=== PATIENT | male | born 1955 | race Caucasian/White ===

== ENCOUNTER 2024-06-29 04:45 | Outpatient (CLI) | payer MEDICARE, SELFPAY | END 2024-06-29 04:46 | disposition home or self-care (01) | LOC: AMB 07-01 01:46 | PROVIDERS: PCP Internal Medicine; Visit Provider Student in an Organized Health Care Education/Training Program | DX: R10.9 Unspecified abdominal pain (principal); R11.10 Vomiting, unspecified | CPT/HCPCS: A0425; A0427 ==

== ENCOUNTER 2025-01-20 11:07 | Outpatient (CLI) | payer MEDICARE, SELFPAY | END 2025-01-20 11:08 | disposition home or self-care (01) | LOC: AMB 01-21 11:38 | PROVIDERS: PCP Internal Medicine; Visit Provider Emergency Medicine | DX: R53.1 Weakness (principal); R52 Pain, unspecified | CPT/HCPCS: A0425; A0427 ==

== ENCOUNTER 2025-01-20 11:50 | Emergency (ER) | payer MEDICARE, SELFPAY ==
[2025-01-20] VITALS (26 sets, daily range): BP systolic 140–167; BP diastolic 79–85; PULSE 63–94; RESP 0–29; TEMP 37.1; O2SAT 94–98; BMI 19.8
--- NOTE | 2025-01-20 11:56 | ED_ITS ---
HPI - General Adult General Time Seen by Provider: 11:56 Date Seen: 01/20/25 Chief complaint: Weakness Stated complaint: Weakness/Cough Time Seen by Provider: 01/20/25 11:53 Source: patient, EMS and RN notes reviewed Mode of arrival: EMS History of Present Illness HPI narrative: This 70-year-old male is coming in the ambulance from home due to ongoing cough and weakness. Started to become ill on Sunday. He has been coughing, headache, sore throat, nasal congestion. He has had decreased appetite, not eating or drinking. No abdominal pain, no vomiting or diarrhea. He has not noted any fevers. He is weak, feels dizzy. He lives independently at home. He has baseline significant orthopedic issues including cervical and lumbar neck issues, has had lumbar fusion, has bilateral carpal tunnel, has arthritis issues, has torn cartilage in both knees. He notes that he generally has aches and pains with all of his orthopedic issues and that certainly is still present. EMS was called, the picked him up at home. They attempted to IV starts but could not get 1, blood glucose was tested though and was 146. Patient tells me he had pancreatic cancer, had a Whipple in 2003 and has been cancer free since then. Related Data Home Medications ?Medication ?Instructions ?Recorded ?Confirmed oxycodone 5 mg tablet mg 01/20/25 pantoprazole 40 mg tablet,delayed mg PO DAILY 01/20/25 release tizanidine 4 mg tablet mg 3XD 01/20/25 Allergies Allergy/AdvReac Type Severity Reaction Status Date / Time scopolamine Allergy Unknown Verified 01/20/25 12:01 Review of Systems Status of ROS: Reports: 6 or more systems reviewed and unremarkable except as noted in History and below [facility] Medical History (Updated 01/20/25 @ 14:46 by Мария Chan MD) Pancreatic cancer ?C25.9 - Malignant neoplasm of pancreas, unspecified (ICD-10) Surgical History (Updated 01/20/25 @ 12:08 by Мария Chan MD) H/O Whipple procedure ?Z90.410 - Acquired total absence of pancreas (ICD-10) ?Z90.49 - Acquired absence of other specified parts of digestive tract (ICD-1 0) Social History Smoking Status: Current every day smoker What tobacco products do you use: cigarettes Do you use any of these nicotine containing products: None How often do you have a drink containing alcohol: monthly or less AUDIT-C Alcohol total score: 1 Non-prescribed substance use: denies use Exam Const: Vital Signs, click to edit/add: Vital Signs - 24 hr 01/20/25 11:54 01/20/25 12:03 01/20/25 12:07 Temperature 98.8 F Pulse Rate 75 Pulse Rate [Pulse Oximeter] 91 Respiratory Rate 20 8 L Blood Pressure Blood Pressure [Ri ght Upper Arm] 140/81 H Pulse Oximetry 96 97 98 Oxygen Delivery Me thod Room Air 01/20/25 12:15 01/20/25 12:30 01/20/25 12:45 Temperature Pulse Rate 67 70 70 Pulse Rate [Pulse Oximeter] Respiratory Rate 7 L 9 L 14 Blood Pressure Blood Pressure [Ri ght Upper Arm] Pulse Oximetry 96 98 96 Oxygen Delivery Me thod 01/20/25 13:00 01/20/25 13:01 01/20/25 13:15 Temperature Pulse Rate 74 77 82 Pulse Rate [Pulse Oximeter] Respiratory Rate 13 11 L 29 H Blood Pressure 155/85 H Blood Pressure [Ri ght Upper Arm] Pulse Oximetry 98 98 96 Oxygen Delivery Me thod 01/20/25 13:30 01/20/25 13:45 01/20/25 14:00 Temperature Pulse Rate 63 94 72 Pulse Rate [Pulse Oximeter] Respiratory Rate 12 18 8 L Blood Pressure Blood Pressure [Ri ght Upper Arm] Pulse Oximetry 96 96 96 Oxygen Delivery Me thod 01/20/25 14:15 01/20/25 14:30 01/20/25 14:38 Temperature Pulse Rate 71 87 75 Pulse Rate [Pulse Oximeter] Respiratory Rate 14 7 L 9 L Blood Pressure 164/79 H Blood Pressure [Ri ght Upper Arm] Pulse Oximetry 96 97 95 Oxygen Delivery Me thod 01/20/25 14:45 01/20/25 15:00 01/20/25 15:15 Temperature Pulse Rate 70 65 69 Pulse Rate [Pulse Oximeter] Respiratory Rate 7 L 8 L 14 Blood Pressure Blood Pressure [Ri ght Upper Arm] Pulse Oximetry 95 97 96 Oxygen Delivery Me thod 70-year-old male is alert, interactive, no apparent distress, sitting up in the bed in room 5. He has some audible nasal congestion but is able to speak in complete sentences. He is not coughing when I am with him. Pupils equal round reactive, sclerae clear, extraocular muscles intact. Symmetric facial function. Neck supple, no thyromegaly or masses, no cervical adenopathy noted. He is able to sit up, he is notably thin, some initial upper airway transmission but clears and underlying lung sounds are clear to auscultation bilaterally, no wheezing, no crackles, no tachypnea, no accessory muscle use. CV regular rate and rhythm, no murmur, normal S1-S2. Abdomen is soft, nontender, nondistended, no organomegaly. He has no lower extremity edema. Very pleasant and conversive gentleman. Documenting provider has reviewed patient's vital signs: yes Course Course ED Course: Patient undoubtedly has a upper respiratory infection, could include lower airways disease with this. Amongst the differential is viral, triple viral swab will be done. He could have other respiratory viral pathogens outside of this that we do not test for. Pneumonia is a possibility as well. Unlikely that this is cardiac but will consider this. Will have him on cardiac monitoring, pulse oximetry, established an IV and get a baseline EKG. He will have full complement of labs. Will start with portable chest x-ray and consider advanced imaging if indicated. He is not hypoxic, afebrile and not tachycardic at this time. Reevaluation(s) Time of Reevaluation #1: 14:40 Reevaluation #1: Have reviewed with patient that he has RSV, chest x-ray is normal, no evidence of pneumonia. He is not hypoxic. He states he is just feeling really dry, would like more IV fluids. Have given a 500 mL bolus, will give him another L of normal saline. He is also complaining of headache. If will give him 1 solitary dose of 15 mg IV Toradol as well as some oral acetaminophen. Have reviewed with him that it will likely continue to be part of this illness, may experience headache on and off. May need to use [id number] medicines. We discussed signs and symptoms for return. Did ask him if he was feeling too weak to go home, reviewed that there is no antibiotic, no curative agent for this. Reviewed that he is likely to be sick for up to 2 weeks. He did report that th ere is a new baby at home, reviewed that this is absolutely contagious to that baby and he needs to avoid the baby. He declines hospitalization. Did review with him that it would be observation. He ultimately did decline hospitalization, feels he can return to home with subsequent IV fluids. He is to let us know if he feels differently, offer for observation remains. He also did have some nausea while here earlier, was given 4 mg IV Zofran, states he does have this at home and declines a prescription from me. Vital Signs Vital signs: Initial Vital Signs Temperature 98.8 F 01/20/25 11:54 Temperature Source Temporal Artery Scan 01/20/25 11:54 Pulse Rate 91 01/20/25 11:54 Respiratory Rate 20 01/20/25 11:54 Blood Pressure 140/81 H 01/20/25 11:54 Blood Pressure Mean 100 01/20/25 11:54 Blood Pressure Position Supine 01/20/25 11:54 Pulse Oximetry 96 01/20/25 11:54 Oxygen Delivery Method Room Air 01/20/25 11:54 Vital Signs Temperature 98.8 F 01/20/25 11:54 Pulse Rate 91 01/20/25 11:54 Respiratory Rate 20 01/20/25 11:54 Blood Pressure 140/81 H 01/20/25 11:54 Pulse Oximetry 96 01/20/25 11:54 Oxygen Delivery Method Room Air 01/20/25 11:54 Temperature 98.8 F 01/20/25 11:54 Pulse Rate 69 01/20/25 15:15 Respiratory Rate 14 01/20/25 15:15 Blood Pressure 164/79 H 01/20/25 14:38 Pulse Oximetry 96 01/20/25 15:15 Oxygen Delivery Method Room Air 01/20/25 11:54 Medications Administered Medications: Generic Name Dose Route Start Last Admin Trade Name Freq PRN Reason Stop Dose Admin Sodium Chloride 1,000 mls @ 1,000 mls/hr 01/20/25 14:42 01/20/25 14:50 0.9 % Sodium Chloride 1000 Ml IV 01/20/25 15:41 1,000 mls/hr .Q1H YOSEF Administration Discontinued Medications Generic Name Dose Route Start Last Admin Trade Name Freq PRN Reason Stop Dose Admin Acetaminophen 1,000 mg 01/20/25 14:42 01/20/25 14:49 Acetaminophen 500 Mg Tablet PO 01/20/25 14:43 1,000 mg ONCE ONE Administration Sodium Chloride 500 mls @ 500 mls/hr 01/20/25 12:49 01/20/25 14:00 0.9 % Sodium Chloride 500 Ml IV 01/20/25 13:48 Infused .Q1H ONE Infusion Ketorolac Tromethamine 15 mg 01/20/25 14:42 01/20/25 14:49 Ketorolac 15 Mg/Ml Inj IVP 01/20/25 14:43 15 mg ONCE ONE Administration Medical Decision Making Lab Data Lab results reviewed: Yes I reviewed the patient's lab results Labs: Lab Results 01/20/25 01/20/25 Range/Units 12:04 12:10 WBC 8.17 (4.50-11.00) K/uL RBC 4.76 (4.30-5.90) m/uL Hgb 13.6 (13.5-17.5) gm/dL Hct 42.0 (37.0-53.0) % MCV 88 (80-100) fL MCH 29 (26-34) pg MCHC 32 (32-36) gm/dL RDW Coeff of [place] 12.5 (11.5-15.5) % Plt Count 131 L (140-440) K/uL Neut % (Auto) 61.6 (42.0-72.0) % Lymph % (Auto) 25.5 (20-44) % [place] % (Auto) 11.8 H (0.0-11.0) % Eos % (Auto) 0.6 (0.0-7.0) % Baso % (Auto) 0.4 (0.0-3.0) % Neut # (Auto) 5.04 (1.7-7.0) K/uL Lymph # (Auto) 2.08 (0.90-2.90) K/uL [place] # (Auto) 1.00 H (0.00-0.90) K/UL Eos # (Auto) 0.05 (0.00-0.50) K/uL Baso # (Auto) 0.03 (0.00-0.30) K/uL Abs Immat Gran (auto) 0.01 (0.00-0.30) K/uL Imm/Tot Granulo (auto) 0.1 % VBG pH 7.435 H (7.32-7.43) VBG pCO2 39 L (40-50) mmHG VBG pO2 40.0 (25-47) mmHG VBG HCO3 26 (21-28) mmol/L Sodium 136 (135-149) mmol/L Potassium 4.2 (3.6-5.1) mmol/L Chloride 104 (96-114) mmol/L Carbon Dioxide 24 (20-32) mmol/L Anion Gap 8 (7-15) mEq/L BUN 5 L (7-30) mg/dL Creatinine 0.9 (0.5-1.5) mg/dL Estimated Creat Clear 62.54 Estimated GFR 91 ml/min Glucose 111 (60-115) mg/dL Lactate 1.2 (0.5-1.9) mmol/L Calcium 8.9 (8.4-10.6) mg/dL Total Bilirubin 0.8 (0.1-1.5) mg/dL AST 31 (12-35) U/L ALT 28 (4-50) U/L Alkaline Phosphatase 139 (40-150) U/L Troponin I < 0.01 L (0.01-0.04) ng/mL C-Reactive Protein 2.0 H (0.5-1.0) mg/dL NT-Pro-B Natriuret Pep 166 pg/mL Total Protein 6.3 (6.0-8.3) g/dL Albumin 4.2 (3.3-5.0) g/dL SARS-CoV-2 (PCR) Negative SARS-CoV-2 (Negative) Influenza Type A (PCR) Negative PCR FLU A (Negative) Influenza Type B (PCR) Negative PCR FLU B (Negative) RSV (PCR) POSITIVE PCR RSV A (Negative) Imaging Data Chest x-ray: Attestation: I have reviewed the pertinent imaging results. Radiologist's impression: Patient: RAMIRO MOJICA Facility:?[facility] Patient ID:?[id number] Site Patient ID:?[id number]. Site :?[id number] Study:?XRay-Chest PORTABLE-01/20/2025 12:31:24 PM Ordering Physician:?Dustin Hsieh Final Report: Indication: Cough and weakness Technique: Chest 1 view Comparison: None Findings/Impression: Cardiovascular and mediastinum: Normal heart size with atherosclerotic calcification. Lungs and pleural space: Lungs are clear. No sign of infiltrate or mass. No sign of pleural effusion. No pneumothorax. Bones and soft tissues: Status post lower cervical spine surgery. Dictated by Jerry Cailxto MD @ 01/20/2025 1:08:04 PM (Electronic Signature) ECG Data Attestation: I personally reviewed and interpreted this ECG as follows: (Sinus rhythm with PACs, 72 beats per minute. No ischemic change or infarct noted.) Prior ECG tracings: not available for review Discharge Plan Discharge Clinical Impression: RSV infection Patient Disposition: Home, Self-Care Condition: Stable Instructions: RSV (Respiratory Syncytial Virus) Infection (ED) Additional Instructions: Can use [id number] cough and cold medicines as needed for symptom control. There is no antiviral treatment for adults for RSV. You are likely to be sick for up to 2 weeks. If you feel you are worsening, have increasing respiratory symptoms, difficulty breathing, shortness of breath, develops fever worsening cough, do recommend re-evaluation. Recommend that you definitely stay away from the new in your family. This is certainly contagious. Drink plenty of fluids, appetite should improve as you feel better. You should quarantine from the baby as well as others until you are starting to improve from this illness and feeling better. Activity Level: Activity as Tolerated Prescriptions: No Action tizanidine 4 mg tablet 3XD pantoprazole 40 mg tablet,delayed release (DR/EC) PO DAILY oxycodone 5 mg tablet Follow Up/Referrals: Jovany Salguero MD [Primary Care Provider] - Stand Alone Forms: [employer] Info Instructions
[2025-01-20 12:20] LABS: HCO3 VBG 26 mmol/L (21-28); Lactate* 1.2 mmol/L (0.5-1.9); PCO2 VBG 39 mmHG (40-50); pH VBG 7.435 (7.32-7.43)
[2025-01-20 12:24] LABS: Basophils Absolute Auto 0.03 K/uL (0.00-0.30); Basophils Percent Auto 0.4 % (0.0-3.0); Eosinophils Absolute Auto 0.05 K/uL (0.00-0.50); Eosinophils Percent Auto 0.6 % (0.0-7.0); Hemoglobin* 13.6 gm/dL (13.5-17.5); Immature Granulocytes Abs Auto 0.01 K/uL (0.00-0.30); Immature Granulocytes Pct Auto 0.1 %; Lymphocytes Absolute Auto 2.08 K/uL (0.90-2.90); Lymphocytes Percent Auto 25.5 % (20-44); Mean Corpuscular HGB Conc 32 gm/dL (32-36); Mean Corpuscular Hemoglobin 29 pg (26-34); Mean Corpuscular Volume 88 fL (80-100); Monocytes Percent Auto 11.8 % (0.0-11.0); Neutrophils Absolute Auto 5.04 K/uL (1.7-7.0); Neutrophils Percent Auto 61.6 % (42.0-72.0); Platelet Count* 131 K/uL (140-440); RDW Coefficient of Variation % 12.5 % (11.5-15.5); Red Blood Count 4.76 m/uL (4.30-5.90); White Blood Count* 8.17 K/uL (4.50-11.00)
[2025-01-20 12:28] LABS: Slide Review Reflex No
[2025-01-20 12:41] LABS: Albumin* 4.2 g/dL (3.3-5.0); Chloride* 104 mmol/L (96-114)
[2025-01-20 12:42] LABS: Potassium* 4.2 mmol/L (3.6-5.1); Sodium* 136 mmol/L (135-149)
[2025-01-20 12:44] LABS: Bilirubin Total* 0.8 mg/dL (0.1-1.5); Blood Urea Nitrogen* 5 mg/dL (7-30); Creatinine* 0.9 mg/dL (0.5-1.5); Est. Creatinine Clearance* 62.54; Estimated Glomerular Filt Rate 91 ml/min
[2025-01-20 12:45] LABS: Alanine Aminotransferase* 28 U/L (4-50); Alkaline Phosphatase* 139 U/L (40-150); Anion Gap 8 mEq/L (7-15); Aspartate Amino Transferase* 31 U/L (12-35); Calcium* 8.9 mg/dL (8.4-10.6); Carbon Dioxide* 24 mmol/L (20-32); Glucose* 111 mg/dL (60-115); Total Protein* 6.3 g/dL (6.0-8.3)
[2025-01-20 12:58] LABS: PCR FLU A Negative PCR FLU A (Negative); PCR FLU B Negative PCR FLU B (Negative); PCR RSV POSITIVE PCR RSV (Negative); SARS PCR* Negative SARS-CoV-2 (Negative)
[2025-01-20] MEDS: 0.9 % SODIUM CHLORIDE 500 ML 500 ML IV (13:00)
[2025-01-20 13:06] LABS: NT Pro B Type NatriureticPept* 166 pg/mL; Troponin I* < 0.01 ng/mL (0.01-0.04)
[2025-01-20] MEDS: ONDANSETRON 2 MG/ML inj 4 MG IVP (14:05)
[2025-01-20] MEDS: ACETAMINOPHEN 500 MG TABLET 1000 MG PO (14:49)
[2025-01-20] MEDS: KETOROLAC 15 MG/ML inj IVP (14:49)
[2025-01-20] MEDS: 0.9 % SODIUM CHLORIDE 1000 ml 1,000 ML IV (14:50)
--- NOTE | 2025-01-20 18:03 | ED.NURSE ---
Pt daughter in-law concerned with the pt coming home d/t being RSV+, and having an at home. MD [place] aware of this, had talked with the pt. Pt son coming to pick the pt up.
== END 2025-01-20 18:19 | disposition home or self-care (01) ==
PROVIDERS: Emergency Provider Family Medicine; PCP Internal Medicine
DX: R05.9 Cough, unspecified (principal); B97.4 Respiratory syncytial virus as the cause of diseases classified elsewhere
CPT/HCPCS: 36415; 71045; 80053; 82803; 83605; 83880; 84484; 85025; 86140; 87631; 93005; 96374; 96375; 99284; 99285; A9270; J1885; J2405; J7030

== ENCOUNTER 2025-01-23 18:03 | Emergency (ER) | payer MEDICARE, SELFPAY ==
[2025-01-23 18:40] VITALS: BP 161/89; PULSE 74; RESP 20; TEMP 38.2; O2SAT 95; BMI 19.8
--- OUTSIDE RECORDS SUMMARY | 2025-01-23 19:36 | XMS_ITS | Encounter Summary ---
Author Organization [facility] Address [address] [facility] [place] [address] Care Team Providers Care Supervisor Fine Grading Name Role Phone Jovany Salguero MD Primary Care Provider [phone] Jovany Salguero MD Unavailable [phone] Janki Ortiz PA-C Unavailable [phone] Gera Rowley PA-C Unavailable Bonifacio Bender MD Unavailable [phone] Didi Villarreal MD Unavailable Gera Rowley PA-C Unavailable Jovany Salguero MD Unavailable [phone] Cheko Lyons MD Unavailable Abraham Gutierres MD Unavailable Nereyda Saleem MD Unavailable [phone] Jovany Salguero MD Unavailable Tawanna Davis Unavailable [phone] Gera Rowley PA-C Unavailable Abraham Gutierres MD Unavailable [phone] Yisel Soliman Harmony ADVERTISING PROJECT MANAGER Unavailable [phone] Denise Keys ACADEMIC REGISTRAR Unavailable [phone] Harmony Bowden CHW Unavailable [phone] Ashley Romero THERAPIST PHYSICAL Unavailable [phone] India Starr CHW Unavailable [phone] Lewis Chiu DO Unavailable [phone] Reason for Visit * Reason Onset Date Comments Refill Request 10/03/2022 Encounter Details Date Type Department Care Team (Late st Contact Info) Description 10/03/2022 Refill [facility] [address] [place] [phone] Jovany Salguero MD [address] [place] [address] Refill Request Social History Tobacco Use Types Packs/Day Years Used Date Smoking Tobacco: Every Day Cigarettes 1 39 Smokeless Tobacco: Never Comments:1 ppd smoker Alcohol Use Standard Drinks/Week Comments Yes 4 (1 standard drink = 0.6 oz pur e alcohol) Occas PHQ-2 Answer Date Recorded PHQ-2 Score 0 09/25/2022 Sex and Gender Information Value Date Recorded Sex Assigned at Not on file Legal Sex Male 3:07 AM MECHANICAL SHOVEL OPERATOR Gender Identity Not on file Sexual Orientation Not on file COVID-19 Exposure Response Date Recorded In the last 10 days, have yo u been in contact with someone who was confirmed or suspected to have Coronavirus/COVID-19? No / Unsure 10/06/2022 3:08 PM MECHANICAL SHOVEL OPERATOR documented as of this encounter Plan of Treatment Not on file documented as of this encounter Visit Diagnoses Not on filedocumented in this encounter Additional Health Concerns Assessment Noted Time PHQ-9 Depression Total Score: 4 09/25/20 22 11:15 AM CDT documented as of this encounter Care Teams Supervisor Fine Grading Relationship Specialty Start Date End Date Jovany Salguero MD [address] [place] [address] PCP - General Internal Medicine 10/02/18 Jovany Salguero MD [address] [place] [address] Assigned PCP 09/05/20 Janki Ortiz PA-C [address] [place] [address] [facility] [address] [place] [address] Physician Gaming Director Dermatology 09/29/21 Gera Rowley PA-C [address] [facility] [address] [place] [address] Assigned Musculoskeletal Provider 07/29/22 10/13/22 [place] [id number] [address] Assigned Musculoskeletal Provider 10/14/22 11/10/22 Didi Villarreal MD ORTHOPAEDIC SURGERY [address] [place] [address] Assigned Musculoskeletal Provider 11/11/22 02/16/23 Gera Rowley PA-C [address] [facility] [address] [place] [address] Assigned Musculoskeletal Provider 02/17/23 05/04/23 Jovany Salguero MD [address] [place] [address] Assigned Pain Medication Provider 02/24/23 06/22/23 [place] [address] [place] [address] Assigned Musculoskeletal Provider 05/05/23 11/16/24 Abraham Gutierres MD [address] [address] Assigned Neuroscience Provider 05/05/23 12/19/23 [place] [address] [place] [address] Assigned Pain Medication Provider 06/23/23 07/13/23 Jovany Salguero MD [address] [facility] [place] [address] Assigned Pain Medication Provider 07/14/23 Tawanna Davis, [facility] Lead Stock Roller Rotary Screen Printing Machine Operator - Clinical 12/17/23 02/29/24 Gera Rowley PA-C [address] [place] [address] Assigned Neuroscience Provider 12/20/23 02/07/24 Abraham Gutierres MD [address] [place] [address] Assigned Neuroscience Provider 02/08/24 11/16/24 [place] [address] [place] [place] [address] Nurse Practitioner Nurse Practitioner 02/14/24 Denise Keys, ACADEMIC REGISTRAR [address] [facility] [place] [address] Lead Stock Roller Primary Care - CC 02/29/24 05/09/24 Harmony Bowden, [facility] Community Health Worker 03/26/24 06/12/24 Ashley Romero, [facility] Lead Stock Roller 05/09/24 India Starr, [facility] Community Health Worker 06/12/24 12/24/24 [place] [address] [address], [address] [address] Assigned Musculoskeletal Provider 11/17/24 documented as of this encounter
--- OUTSIDE RECORDS SUMMARY | 2025-01-23 19:36 | XMS_ITS | Encounter Summary ---
Author Organization [place] Address [address] [facility] [place] [address] Care Team Providers Care Home Hospice Rn Name Role Phone Jovany Salguero MD Primary Care Provider [phone] Jovany Salguero MD Unavailable [phone] Janki OrtizC Unavailable [phone] Cheko Lyons MD Unavailable Jovany Salguero MD Unavailable [phone] Tawanna Davis CAE ENGINEER Unavailable [phone] Gera RowleyC Unavailable [phone] Abraham Gutierres MD Unavailable [phone] Yisel Soliman AIRPORT SCREENER Unavailable [phone] Denise Keys ACTUARIAL DIRECTOR Unavailable [phone] Harmony Bowden CHW Unavailable [phone] Ashley Romero CAE ENGINEER Unavailable [phone] India Starr CHW Unavailable Lewis Chiu DO Unavailable [phone] Reason for Visit * Reason Onset Date Comments Symptoms 12/20/2023 Encounter Details Date Type Department Care Team (Late st Contact Info) Description 12/20/2023 Telephone [facility] - [address] 4[address] [place] [address] None Symptoms Social History Tobacco Use Types Packs/Day Years Used Date Smoking Tobacco: Some Days Cigarettes 1 39 Smokeless Tobacco: Never Comments:1 ppd smoker Alcohol Use Standard Drinks/Week Comments Yes 4 (1 standard drink = 0.6 oz pur e alcohol) Occas PHQ-2 Answer Date Recorded PHQ-2 Score 6 12/05/2023 Adolescent Education Answer Date Record ed Getting School Help Needed Not on file 08/25 Food Insecurity Answer Date Recorded Within the past 12 months, d id you worry that your food would run out before you got money to buy more? No 12/18/2023 Within the past 12 months, d id the food you bought just not last and you didn t have money to get more? No 12/18/2023 Housing Stability Answer Date Recorded Do you have housing? (Housin g is defined as stable permanent housing and does not include staying ouside in a car, in a tent, in an abandoned building, in an overnight assisted, or couch-surfing.) Yes 12/18/2023 Are you worried about losing your housing? No 12/18/2023 Financial Resource Strain Answer Date R ecorded Within the past 12 months, h ave you or your family members you live with been unable to get utilities (heat, electricity) when it was really needed? No 12/18/2023 Transportation Needs Answer Date Record ed Within the past 12 months, h as lack of transportation kept you from medical appointments, getting your medicines, non-medical meetings or appointments, work, or from getting things that you need? No 12/18/2023 Interpersonal Safety Answer Date Record ed Do you feel physically and e motionally safe where you currently live? Yes 11/13/2023 Within the past 12 months, h ave you been hit, slapped, kicked or otherwise physically hurt by someone? No 11/13/2023 Within the past 12 months, h ave you been humiliated or emotionally abused in other ways by your partner or ex-partner? No 11/13/2023 Sex and Gender Information Value Date Recorded Sex Assigned at Not on file Legal Sex Male 3:07 AM TRAUMA PROGRAM MANAGER Gender Identity Not on file Sexual Orientation Not on file documented as of this encounter Miscellaneous Notes * Telephone Encounter - Elroy Franz - 12/20/2023 12:24 PM CST Caller reporting the following red-flag symptom(s): Left eye pain Per the system red-flag symptom policy, patient was instructed to: speak with a Registered Nurse Action: Patient warm transferred to a Registered Nurse MA PROGRAM MANAGER documented in this encounter Plan of Treatment Not on file documented as of this encounter Goals Goal Patient Goal Type Associated Problems Recent Progress Patient-Stated? Author Create an action plan to increase financial stability Care Plan Patient expresses financial resource strain 60%( 12:56 PM TRAUMA PROGRAM MANAGER) No Tawanna Davis, [facility] Note: Barriers: fixed/limited income Strengths: family support Patient expressed understanding of goal: yes Action steps to achieve this goal: I will utilize [employer] (Completed) I will work with Financial Resource Worker regarding my outstanding medical bills and get assistance from [facility]. (Completed) I will work with financial resource worker on certain pops [place] application and [place] benefits (Pending) I will work with Financial Resource Worker to reinstate [place] benefits and transfer them to [facility] (01/09: In Progress - pt stated that they transferred and he recently filled out paperwork and sent it back into the [facility] and is waiting on a return call/update) I will continue to outreach to care coordination as needed for additional resources or supports. (Ongoing) documented as of this encounter Visit Diagnoses Not on filedocumented in this encounter Additional Health Concerns Active Problems Noted Date Diagnosed Date Patient expresses financial resource strain 11/27 Assessment Noted Time PHQ-9 Depression Total Score: 20 024 10:02 AM TRAUMA PROGRAM MANAGER documented as of this encounter Care Teams Home Hospice Rn Relationship Specialty Start Date End Date Jovany Salguero MD [address] [place] [address] PCP - General Internal Medicine 10/02/18 Jovany Salguero MD [address] [place] [address] Assigned PCP 09/05/20 Janki Ortiz PA-C [address] [place] [address] [address] [facility] [address] Physician Financial Systems Administrator Dermatology 09/29/21 [place] [address] [facility] [place] [address] Assigned Musculoskeletal Provider 05/05/23 11/16/24 Jovany Salguero MD [address] [place] [address] Assigned Pain Medication Provider 07/14/23 Tawanna Davis, [facility] Lead Flexo Operator Veterinary Technology Instructor - Clinical 12/17/23 02/29/24 Gera Rowley PA-C [address] [facility] [address] [id number] Assigned Neuroscience Provider 12/20/23 02/07/24 Abraham Gutierres MD [address] [place] [address] Assigned Neuroscience Provider 02/08/24 11/16/24 [place] [address] [facility] [place] [place] [address] Nurse Practitioner Nurse Practitioner 02/14/24 Denise Keys, ACTUARIAL DIRECTOR [address] [place] [address] Lead Flexo Operator Primary Care - CC 02/29/24 05/09/24 Harmony Bowden, W Community Health Worker 03/26/24 06/12/24 Ashley Romero, [facility] Lead Flexo Operator 05/09/24 India Starr, [facility] Community Health Worker 06/12/24 12/24/24 [place] [address] [address], [address] [address] Assigned Musculoskeletal Provider 11/17/24 documented as of this encounter
--- OUTSIDE RECORDS SUMMARY | 2025-01-23 19:36 | XMS_ITS | Encounter Summary ---
Author Organization [place] Address [address] [facility] [address] Care Team Providers Care Animal Behaviorist Name Role Phone Jovany Salguero MD Primary Care Provider [phone] Jovany Salguero MD Unavailable Janki Ortiz PA-C Unavailable [phone] Gera Rowley PA-C Unavailable [phone] Jovany Salguero MD Unavailable Cheko Lyons MD Unavailable Abraham Gutierres MD Unavailable [phone] Nereyda Saleem MD Unavailable [phone] Jovany Salguero MD Unavailable Tawanna DavisSW Unavailable Gera Rowley PA-C Unavailable [phone] Abraham Gutierres MD Unavailable [phone] Yisel Soliman SENIOR FOREMAN Unavailable [phone] Denise Keys CO FOUNDER AND CHIEF STRATEGY OFFICER Unavailable [phone] Harmony Bowden CHW Unavailable [phone] Ashley Romero [facility] Unavailable [phone] India Starr CHW Unavailable [phone] Lewis Chiu DO Unavailable [phone] Reason for Visit * Reason Onset Date Comments Results 02/22/2023 Encounter Details Date Type Department Care Team (Late st Contact Info) Description 02/22/2023 Telephone [facility] [place] [address] [facility] [address] [place] [address] Gera Rowley PA-C [address] [address] Results Social History Tobacco Use Types Packs/Day Years [...] on file 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 No / Unsure 02/20/2023 11:06 AM CDT documented as of this encounter Miscellaneous Notes * Telephone Encounter - Radha Pizarro - 02/22/2023 9:21 AM CDT [facility] Call Center Phone Message May a detailed message be left on voicemail: yes Reason for Call: Requesting Results Name/type of test: MRI Date of test: 02/19/23 Was test done at a location other than [facility] (Please fill in the location if not [facility])?: Yes: [place] Action Taken: Other: [facility] Travel Screening: Not Applicable documented in this encounter Plan of Treatment Not on file documented as of this encounter Visit Diagnoses Not on filedocumented in this encounter Additional Health Concerns Assessment Noted Time PHQ-9 Depression Total Score: 4 09/25/20 22 11:15 AM CDT documented as of this encounter Care Teams Animal Behaviorist Relationship Specialty Start Date End Date Jovany Salguero MD [address] [place] [address] PCP - General Internal Medicine 10/02/18 Jovany Salguero MD [address] [place] [address] Assigned PCP 09/05/20 Janki Ortiz PA-C [address] [place] [address] [address] [facility] [place] [address] Physician Driller Multiple Spindle Dermatology 09/29/21 Gera Rowley PA-C [address] [facility] [address] [place] [address] Assigned Musculoskeletal Provider 02/17/23 05/04/23 Jovany Salguero MD [address] [place] [address] Assigned Pain Medication Provider 02/24/23 06/22/23 [place] [address] [place] [address] Assigned Musculoskeletal Provider 05/05/23 11/16/24 Abraham Gutierres MD [address] 328915 Assigned Neuroscience Provider 05/05/23 12/19/23 [place] [address] [place] [address] Assigned Pain Medication Provider 06/23/23 07/13/23 Jovany Salguero MD [address] [place], [place] [address] Assigned Pain Medication Provider 07/14/23 Tawanna Davis, DRAFTING TECHNICIAN Lead Truck Loader Overhead Crane Rn Plastics - Clinical 12/17/23 02/29/24 Gera Rowley PA-C [address] 274025 Assigned Neuroscience Provider 12/20/23 02/07/24 Abraham Gutierres MD [address] [address] Assigned Neuroscience Provider 02/08/24 11/16/24 [place] [address] [place] [address] Nurse Practitioner Nurse Practitioner 02/14/24 Denise Keys, CO FOUNDER AND CHIEF STRATEGY OFFICER [address] [place], [place] 9[address] Lead Truck Loader Overhead Crane Primary Care - CC 02/29/24 05/09/24 Harmony Bowden CHW Community Health Worker 03/26/24 06/12/24 Ashley Romero, [facility] Lead Truck Loader Overhead Crane 05/09/24 India Starr CHW Community Health Worker 06/12/24 12/24/24 [place] [address] [address], [address] [address] Assigned Musculoskeletal Provider 11/17/24 documented as of this encounter
--- OUTSIDE RECORDS SUMMARY | 2025-01-23 19:36 | XMS_ITS | Encounter Summary ---
Author Organization [place] Address [address] [facility] [place] [address] Care Team Providers Care Internal Affairs Commander Name Role Phone Jovany Salguero MD Primary Care Provider [phone] Jovany Salguero MD Unavailable Janki Ortiz PA-C Unavailable [phone] Gera Rowley PA-C Unavailable Bonifacio Bender MD Unavailable Didi Villarreal MD Unavailable [phone] Gera Rowley PA-C Unavailable Jovany Slaguero MD Unavailable [phone] Cheko Lyons MD Unavailable Abraham Gutierres MD Unavailable Nereyda Saleem MD Unavailable [phone] Jovany Salguero MD Unavailable Tawanna Davis Unavailable [phone] Gera Rowley PA-C Unavailable Abraham Gutierres MD Unavailable [phone] Yisel Soliman Harmony HORTICULTURAL AGENT Unavailable [phone] Denise Keys NURSE RESEARCH Unavailable [phone] Harmony Bowden CHW Unavailable [phone] Ashley Romero PHARMACIST MANAGER Unavailable [phone] India Starr CHW Unavailable [phone] Lewis Chiu DO Unavailable [phone] Reason for Visit * Reason Onset Date Comments Refill Request 09/26/2022 Encounter Details Date Type Department Care Team (Late st Contact Info) Description 09/26/[address] 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 No / Unsure 09/25/2022 11:05 AM CDT documented as of this encounter Plan of Treatment Not on file documented as of this encounter Visit Diagnoses Not on filedocumented in this encounter Additional Health Concerns Assessment Noted Time PHQ-9 Depression Total Score: 4 09/25/20 22 11:15 AM CDT documented as of this encounter Care Teams Internal Affairs Commander Relationship Specialty Start Date End Date Jovany Salguero MD [address] [place] [address] PCP - General Internal Medicine 10/02/18 Jovany Salguero MD [address] [place] [address] Assigned PCP 09/05/20 Janki Ortiz PA-C [address] [place] [address] [facility] [address] [place] [address] Physician Play Leader Dermatology 09/29/21 Gera Rowley PA-C [address] [facility] [address] [place] [address] Assigned Musculoskeletal Provider 07/29/22 10/13/22 [place] [address] [address] Assigned Musculoskeletal Provider 10/14/22 11/10/22 Didi Villarreal MD ORTHOPAEDIC SURGERY [address] [place] [address] Assigned Musculoskeletal Provider 11/11/22 02/16/23 Gera Rowley PA-C [address] [facility] [address] [place] [address] Assigned Musculoskeletal Provider 02/17/23 05/04/23 Jovany Salguero MD [address] [place] [address] Assigned Pain Medication Provider 02/24/23 06/22/23 [place] [address] [place] [address] Assigned Musculoskeletal Provider 05/05/23 11/16/24 Abraham Gutierres MD [address] [address] Assigned Neuroscience Provider 05/05/23 12/19/23 [place] [address] [address] [place] [address] Assigned Pain Medication Provider 06/23/23 07/13/23 Jovany Salguero MD [address] [facility] [place] [address] Assigned Pain Medication Provider 07/14/23 Tawanna Davis, [facility] Lead Academic Registrar Twisting Machine Operator - Clinical 12/17/23 02/29/24 Gera Rowley PA-C [address] [place] [address] [place] [address] Assigned Neuroscience Provider 12/20/23 02/07/24 Abraham Gutierres MD [address] [place] [address] Assigned Neuroscience Provider 02/08/24 11/16/24 [place] [address] [address] [place] [address] Nurse Practitioner Nurse Practitioner 02/14/24 Denise Keys, NURSE RESEARCH [address] [facility] [place] [address] Lead Academic Registrar Primary Care - CC 02/29/24 05/09/24 Harmony Bowden, [facility] Community Health Worker 03/26/24 06/12/24 Ashley Romero, [facility] Lead Academic Registrar 05/09/24 India Starr, [facility] Community Health Worker 06/12/24 12/24/24 [place] [address] [address], [address] [address] Assigned Musculoskeletal Provider 11/17/24 documented as of this encounter
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
--- OUTSIDE RECORDS SUMMARY | 2025-01-23 19:36 | XMS_ITS | Encounter Summary ---
Author Organization [place] Address [address] [facility] [place] [address] Care Team Providers Care Veneer Department Manager Name Role Phone Jovany Salguero MD Primary Care Provider [phone] Jovany Sagluero MD Unavailable Janki Ortiz PA-C Unavailable [phone] Gera Rowley PA-C Unavailable +[phone] Jovany Salguero MD Unavailable Cheko Lyons MD Unavailable Abraham Gutierres MD Unavailable [phone] Nereyda Saleem MD Unavailable [phone] Jovany Salguero MD Unavailable Tawanna DavisSW Unavailable Gera Rowley PA-C Unavailable [phone] Abraham Gutierres MD Unavailable [phone] Yisel Soliman PLASTIC DOLLS MOLD FILLER Unavailable [phone] Denise Keys CORPORATE RECEPTIONIST Unavailable [phone] Harmony Bowden CHW Unavailable [phone] Ashley Romero [facility] Unavailable [phone] India Starr CHW Unavailable [phone] Lewis Chiu DO Unavailable [phone] Reason for Referral * Consultation (Routine: Next available opening) - Closed Specialty Diagnoses / Procedures Referred By Contac t Referred To Contact Pain Medicine Diagnoses DDD (degenerative disc disease), lumbar My Kc NP [address] [address] Phone: tel: fax: Referral ID Status Reason Start Date Expiration Date Visits Re quested Visits Authorized [id number] Closed 03/05/2023 03/04/2024 1 1 Question Answer Reason for Referral: Procedure Order Procedure: Epidural (Advanced imaging required in the last 3 years) Location: Lumbar Scheduling Instructions: Team My Mobile will call you to coordinate care as prescribed your provider. If you don t hear from a welding equipment sales representative within 2 business days, please call . Comments Please be aware that coverage of these services is subject to the terms and limitations of your health insurance plan. Call member services at your health plan with any benefit or coverage questions. Team My Mobile will call you to coordinate care as prescribed your provider. If you don t hear from a welding equipment sales representative within 2 business days, please call . Reason for Visit * Reason Onset Date Comments Appointment 03/05/2023 Encounter Details Date Type Department Care Team (Late st Contact Info) Description 03/05/2023 Telephone [facility] [place] [address] [place] [address] Gera Rowley PA-C [address] [place] [address] [id number] Appointment Social History Tobacco Use Types Packs/Day Years [...] on file Legal Sex Male 3:07 AM SENIOR PROJECT ARCHITECT Gender Identity Not on file Sexual Orientation Not on file COVID-19 Exposure Response Date Recorded In the last 10 days, have yo u been in contact with someone who was confirmed or suspected to have Coronavirus/COVID-19? No / Unsure 02/20/2023 11:06 AM CDT documented as of this encounter Miscellaneous Notes * Telephone Encounter - My Kc NP - 03/05/2023 10:50 AM CDT Called patient to review imaging results as stated below. Patient reports continued low back pain radiating to bilateral legs, denies any new symptoms. We discussed next steps. Placed order for lumbar TALON. Advised patient to call our clinic if symptoms persist, change, or worsen. Patient voiced understanding and agreement with this plan. MRI OF THE LUMBAR SPINE WITHOUT CONTRAST 02/19/2023 11:12 AM IMPRESSION: 1. Diffuse degenerative change of the lumbar spine as detailed above. 2. No high-grade spinal canal stenosis of the lumbar spine. 3. Moderate neural foraminal stenosis bilaterally at L5-S1. No other significant neural foraminal narrowing of the lumbar spine. My Kc CNP [facility] [address] [address] Pager [phone] * Telephone Encounter - Didi Heath RN - 03/05/2023 8:25 AM CDT Routed to KAM pool as provider OOO. * Telephone Encounter - Indigo Fox - 03/05/2023 8:20 AM CDT Pelon, I'm with ortho con. Pt of Gera Amrik is calling again to ask for MRI results. Pt is in a lotof pain. He had the MRI 2 weeks ago. Pt can be reached at [phone]. documented in this encounter Plan of Treatment Scheduled Referrals Name Type Priority Associated Diagnoses Orde r Schedule Pain Management Remedial Teacher Referral Referral Routine: Next available opening DDD (degenerative disc disease), lumbar Expected: 03/05/2023 (Approximate), Expires: 03/05/2024 documented as of this encounter Visit Diagnoses Diagnosis DDD (degenerative disc disease), lumbar- Primary Degeneration of lumbar or lumbosacral intervertebral disc documented in this encounter Additional Health Concerns Assessment Noted Time PHQ-9 Depression Total Score: 4 09/25/20 22 11:15 AM CDT documented as of this encounter Care Teams Veneer Department Manager Relationship Specialty Start Date End Date Jovany Salguero MD [address] [place] [address] PCP - General Internal Medicine 10/02/18 Jovany Salguero MD [address] [place] [address] Assigned PCP 09/05/20 Janki Ortiz PA-C [address] [place] [address] [address] [address] Physician Environmental Solutions Engineer Dermatology 09/29/21 Gera Rowley PA-C [address] [address] Assigned Musculoskeletal Provider 02/17/23 05/04/23 Jovany Salguero MD [address] [place] [address] Assigned Pain Medication Provider 02/24/23 06/22/23 [place] [address] [place] [address] Assigned Musculoskeletal Provider 05/05/23 11/16/24 Abraham Gutierres MD [address] [place] [address] Assigned Neuroscience Provider 05/05/23 12/19/23 [place] [address] [place] [address] Assigned Pain Medication Provider 06/23/23 07/13/23 Jovany Salguero MD [address] [place] [address] Assigned Pain Medication Provider 07/14/23 Tawanna Davis, [facility] Lead Manager Floral Stem Assembler - Clinical 12/17/23 02/29/24 Gera Rowley PA-C [address] [address] Assigned Neuroscience Provider 12/20/23 02/07/24 Abraham Gutierres MD [address] [place] [address] Assigned Neuroscience Provider 02/08/24 11/16/24 Yisel Soliman, [place] [address] [place] [address] Nurse Practitioner Nurse Practitioner 02/14/24 Denise Keys, LYNDON [address] [place] [address] Lead Manager Floral Primary Care - CC 02/29/24 05/09/24 Harmony Bowden W Community Health Worker 03/26/24 06/12/24 Ashley Romero, [facility] Lead Manager Floral 05/09/[address] [facility] Community Health Worker 06/12/24 12/24/24 [place] [address] [address], [place] [address] [place] [address] Assigned Musculoskeletal Provider 11/17/24 documented as of this encounter
--- OUTSIDE RECORDS SUMMARY | 2025-01-23 19:36 | XMS_ITS | Encounter Summary ---
Author Organization [place] Address [address] [facility] [place] [address] Care Team Providers Care Rug Backing Stenciler Name Role Phone Jovany Salguero MD Primary Care Provider [phone] Jovany Salguero MD Unavailable Janki Ortiz PA-C Unavailable [phone] Gera Rowley PA-C Unavailable [phone] Jovany Salguero MD Unavailable Cheko Lyons MD Unavailable Abraham Gutierres MD Unavailable [phone] Nereyda Saelem MD Unavailable [phone] Jovany Salguero MD Unavailable Tawanna DavisSW Unavailable Gera Rowley PA-C Unavailable [phone] Abraham Gutierres MD Unavailable [phone] Yisel Soliman ELECTRICAL AND INSTRUMENT ENGINEER Unavailable [phone] Denise Keys DENTAL HYGIENIST MOBILE COORDINATOR Unavailable [phone] Harmony Bowden CHW Unavailable Ashley Romero GYMNASTIC COACH Unavailable [phone] India Starr CHW Unavailable [phone] Lewis Chiu DO Unavailable [phone] Encounter Details Date Type Department Care Team (Late st Contact Info) Description 03/02/2023 [facility] [address] [place] [address] Gera Rowley PA-C [address] [facility] [address] [place] [address] Social History Tobacco Use Types Packs/Day Years [...] on file 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 No / Unsure 02/20/2023 11:06 AM CDT documented as of this encounter Miscellaneous Notes * Telephone Encounter - Shivani Melton - 03/02/2023 11:01 AM CDT [facility] Call Center Phone Message May a detailed message be left on voicemail: yes Reason for Call: Other: Ed called wanting to know the results of his MRI. Please call to discuss Action Taken:Other: [facility] Travel Screening: Not Applicable documented in this encounter Plan of Treatment Not on file documented as of this encounter Visit Diagnoses Not on filedocumented in this encounter Additional Health Concerns Assessment Noted Time PHQ-9 Depression Total Score: 4 09/25/20 11:15 AM CDT documented as of this encounter Care Teams Rug Backing Stenciler Relationship Specialty Start Date End Date Jovany Salguero MD [address] [place] [address] PCP - General Internal Medicine 10/02/18 Jovany Salguero MD [address] [place] [address] Assigned PCP 09/05/20 Janki Ortiz PA-C [address] [place] [address] [address] [facility] [facility] [place] [address] Physician Instructional Support Services Director Dermatology 09/29/21 Gera Rowley PA-C [address] [address] Assigned Musculoskeletal Provider 02/17/23 05/04/23 Jovany Salguero MD [address] [place] [address] Assigned Pain Medication Provider 02/24/23 06/22/23 [place] [address] [facility] [place] [address] Assigned Musculoskeletal Provider 05/05/23 11/16/24 Abraham Gutierres MD [address] [place] [address] Assigned Neuroscience Provider 05/05/23 12/19/23 [place] [address] [place] [address] Assigned Pain Medication Provider 06/23/23 07/13/23 Jovany Salguero MD [address] [place] [address] Assigned Pain Medication Provider 07/14/23 Tawanna Davis, [facility] Lead Sheet Metal Assembler And Riveter Senior Planning Manager - Clinical 12/17/23 02/29/24 Gera Rowley PA-C [address] [address] Assigned Neuroscience Provider 12/20/23 02/07/24 Abraham Gutierres MD [address] [place] [address] Assigned Neuroscience Provider 02/08/24 11/16/24 [place] [address] [place] [address] Nurse Practitioner Nurse Practitioner 02/14/24 Denise Keys, DENTAL HYGIENIST MOBILE COORDINATOR [address] [place] [address] Lead Sheet Metal Assembler And Riveter Primary Care - CC 02/29/24 05/09/24 Harmony [place], W Community Health Worker 03/26/24 06/12/24 Ashley Romero, [facility] Lead Sheet Metal Assembler And Riveter 05/09/24 India Starr W Community Health Worker 06/12/24 12/24/24 [place] [address] [address], [facility] [address] [place] [address] Assigned Musculoskeletal Provider 11/17/24 documented as of this encounter
--- OUTSIDE RECORDS SUMMARY | 2025-01-23 19:37 | XMS_ITS | Encounter Summary ---
Author Organization [place] Address [address] [facility] [place] [address] Care Team Providers Care Network Designer Name Role Phone Jovany Salguero MD Primary Care Provider [phone] Jovany Salguero MD Unavailable Janki Ortiz-C Unavailable [phone] Didi Villarreal MD Unavailable [phone] Gera Rowley-C Unavailable [phone] Jovany Salguero MD Unavailable [phone] Cheko Lyons MD Unavailable Abraham Gutierres MD Unavailable [phone] Nereyda Saleem MD Unavailable [phone] Jovany Salguero MD Unavailable Tawanna Davis Unavailable [phone] Gera Rowley-C Unavailable [phone] Abraham Gutierres MD Unavailable Yisel Soliman NP Unavailable [phone] Denise Keys Unavailable [phone] Harmony Bowden CH Unavailable [phone] Ashley Romero [facility] Unavailable India Starr [facility] Unavailable [phone] Lewis Chiu DO Unavailable [phone] Reason for Visit * Reason Onset Date Comments Appointment 01/31/2023 Encounter Details Date Type Department Care Team (Late st Contact Info) Description 01/31/2023 [facility] Neurosurgery [facility] [address] [place] [address] Joon Zambrano PA-C [address] [place] [address] [place], [place] [address] Appointment Social History Tobacco Use Types Packs/Day [...] on file 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 No / Unsure 01/29/2023 10:13 AM CEMENT SIDE LASTER documented as of this encounter Miscellaneous Notes * Telephone Encounter - Radha Pizarro - 01/31/2023 1:59 PM CST [facility] Call Center Phone Message May a detailed message be left on voicemail: yes Reason for Call: Other: Patient called upset stated that no one called him about a cancelled appt with Dr. Karimi and is now on a sched with Dr. Zambrano for 02/27/23 and it's too far. Patient stated thathe is in excruciating pain. He said he wants the injection and has a hard time getting out of bed. If injection would be option for him he would like a sooner appt for this month. Please call and advise. Action Taken: Other: [facility] Travel Screening: Not Applicable NT SIDE LASTER documented in this encounter Plan of Treatment Not on file documented as of this encounter Visit Diagnoses Not on filedocumented in this encounter Additional Health Concerns Assessment Noted Time PHQ-9 Depression Total Score: 4 09/25/20 22 11:15 AM CDT documented as of this encounter Care Teams Network Designer Relationship Specialty Start Date End Date Jovany Salguero MD [address] [place], [place] [address] PCP - General Internal Medicine 10/02/18 Jovany Salguero MD [address] [place], [place] [address] Assigned PCP 09/05/20 Janki Ortiz PA-C [address] [place] [address] [address] [place] [id number] Physician Marketing Intern Dermatology 09/29/21 Didi Villarreal MD ORTHOPAEDIC SURGERY [facility] [address] [address] Assigned Musculoskeletal Provider 11/11/22 02/16/23 Gera Rowley PA-C [address] [place] [address] 819905 Assigned Musculoskeletal Provider 02/17/23 05/04/23 Jovany Salguero MD [address] [place] [address] Assigned Pain Medication Provider 02/24/23 06/22/23 [place] [address] [facility] [place] [address] Assigned Musculoskeletal Provider 05/05/23 11/16/24 Abraham Gutierres MD [address] [place] [address] Assigned Neuroscience Provider 05/05/23 12/19/23 [place] [address] [place] [address] Assigned Pain Medication Provider 06/23/23 07/13/23 Jovany Salguero MD [address] [facility] [place] [address] Assigned Pain Medication Provider 07/14/23 Tawanna Davis, [facility] Lead Pest Technician Rail Specialist - Clinical 12/17/23 02/29/24 Gera Rowley PA-C [address] [place] [address] Assigned Neuroscience Provider 12/20/23 02/07/24 Abraham Gutierres MD [address] [place] [address] Assigned Neuroscience Provider 02/08/24 11/16/24 [place] [address] [address] [address] Nurse Practitioner Nurse Practitioner 02/14/24 Denise Keys, [facility] [address] [facility] [place] [address] Lead Pest Technician Primary Care - CC 02/29/24 05/09/24 Harmony [place], [facility] Community Health Worker 03/26/24 06/12/24 Ashley Romero, [facility] Lead Pest Technician 05/09/24 India Starr [facility] Community Health Worker 06/12/24 12/24/24 [place] [address] [facility], [address] [address] Assigned Musculoskeletal Provider 11/17/24 documented as of this encounter
--- OUTSIDE RECORDS SUMMARY | 2025-01-23 19:37 | XMS_ITS | Encounter Summary ---
Author Organization [place] Address [address] [facility] [place] [address] Care Team Providers Care Mortgage Loan Specialist Name Role Phone Jovany Salguero MD Primary Care Provider [phone] Kelsy Samayoa APRN MILITARY TECHNOLOGY SPECIALIST Unavailable Un available Jovany Salguero MD Unavailable Bonifacio Bender MD Unavailable Janki Ortiz-C Unavailable Gera Rowley-C Unavailable [phone] Bonifacio Bender MD Unavailable [phone] Didi Villarreal MD Unavailable [phone] Gera RowleyC Unavailable [phone] Jovany Salguero MD Unavailable [phone] Cheko Lyons MD Unavailable Abraham Gutierres MD Unavailable Nereyda Saleem MD Unavailable [phone] Jovany Salguero MD Unavailable [phone] Tawanna DavisSW Unavailable [phone] Gera Rowley PA-C Unavailable [phone] Abraham Gutierres MD Unavailable [phone] Yisel Soliman ORDER ADMINISTRATOR Unavailable Denise Keys PIN CHASER Unavailable [phone] Harmony Bowden CHW Unavailable Ashley Romero Michael SEALER DRY CELL Unavailable [phone] India Starr CHW Unavailable [phone] Lewis Chiu DO Unavailable [phone] Reason for Visit * Reason Onset Date Comments Medication Problem 10/17/2019 Diclofenac un available to order for patient Encounter Details Date Type Department Care Team (Late st Contact Info) Description 10/17/[address] [place] [address] Jovany Salguero MD [address] [place] [address] Medication Problem (Diclofenac unavailable to order for patient) Social History Tobacco Use Types Packs/Day Years Used Date Smoking Tobacco: Every Day Cigarettes 1 39 Smokeless Tobacco: Never Comments:2 ppd smoker Alcohol Use Standard Drinks/Week Comments Yes 4 (1 standard drink = 0.6 oz pur e alcohol) Occas PHQ-2 Answer Date Recorded PHQ-2 Score 3 10/09/2019 Sex and Gender Information Value Date Recorded Sex Assigned at Not on file 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 Called in EYBALL ASSEMBLER * Telephone Encounter - Martin, Dafne - 10/17/2019 1:30 PM CST [facility] [address] [facility] [address] Message: dicolfenac potassium is unavailable to order for patient. PLease contact pharmacy to change or fax alternative. Thank you. Last Written Prescription Date: 10/08/19 Last Fill Quantity: 90, # refills: 1 Last office visit: 10/08/2019 with prescribing provider: 10/08/19 Future Office Visit: EYBALL ASSEMBLER documented in this encounter Plan of Treatment Not on file documented as of this encounter Visit Diagnoses Diagnosis Left shoulder pain, unspecified chronicity documented in this encounter Additional Health Concerns Infection Onset Date Last Indicated Resolved Time COVID-19 06/22/2021 06/22/2021 07/13/2021 11:3 9 PM CDT Assessment Noted Time PHQ-9 Depression Total Score: 6 10/08/20 10:42 AM VOLLEYBALL ASSEMBLER documented as of this encounter Care Teams Mortgage Loan Specialist Relationship Specialty Start Date End Date Jovany Salguero MD [address] [place] [address] PCP - General Internal Medicine 10/02/18 Kelsy Samayoa APRN MILITARY TECHNOLOGY SPECIALIST Assigned PCP 10/12/19 09/04/20 Jovany Salguero MD [address] [place] [address] Assigned PCP 09/05/20 [place] [address] [facility] [address] [place] [address] Assigned Musculoskeletal Provider 09/17/20 12/24/21 Janki Ortiz PA-C [address] [place] [address] [address] [address] Physician Splitter Hand Dermatology 09/29/21 Gera Rowley PA-C [address] [facility] [address] [address] Assigned Musculoskeletal Provider 07/29/22 10/13/22 [place] [address] 735577 Assigned Musculoskeletal Provider 10/14/22 11/10/22 Didi Villarreal MD ORTHOPAEDIC SURGERY [address] [place] [address] Assigned Musculoskeletal Provider 11/11/22 02/16/23 Gera Rowley PA-C [address] [address] Assigned Musculoskeletal Provider 02/17/23 05/04/23 Jovany Salguero MD [address] [place] [address] Assigned Pain Medication Provider 02/24/23 06/22/23 [place] [address] [address] Assigned Musculoskeletal Provider 05/05/23 11/16/24 Abraham Gutierres MD [address] [place] [address] Assigned Neuroscience Provider 05/05/23 12/19/23 [place] [address] [place] [address] Assigned Pain Medication Provider 06/23/23 07/13/23 Jovany Salguero MD [address] [place] [address] Assigned Pain Medication Provider 07/14/23 Tawanna Davis, [facility] Lead Water Pump Servicer Duct Layer Helper - Clinical 12/17/23 02/29/24 Gera Rowley PA-C [address] [address] Assigned Neuroscience Provider 12/20/23 02/07/24 Abraham Gutierres MD [address] [place] [address] Assigned Neuroscience Provider 02/08/24 11/16/24 [place] [address] [place] [address] Nurse Practitioner Nurse Practitioner 02/14/24 Denise Keys, [facility] [address] [place] [address] Lead Water Pump Servicer Primary Care - CC 02/29/2405/09 Harmony Bowden W Community Health Worker 03/26/2406/12 Ashley Romero, [facility] Lead Water Pump Servicer 05/09/24 India Starr W Community Health Worker 06/12/2412/24 [place] [address] [address], [address] [address] Assigned Musculoskeletal Provider 11/17/24 documented as of this encounter
--- OUTSIDE RECORDS SUMMARY | 2025-01-23 19:37 | XMS_ITS | Encounter Summary ---
Author Organization [facility] Address [address] [facility] [place] [address] Care Team Providers Care Glass Scullion Name Role Phone Judy Mcpherson MD Primary Care Provider [phone] [facility] Primary Care Provider Jovany Salguero MD Primary Care Provider [phone] Daniela Bledsoe Unavailable Unavai Kelsy Bryson SURVEILLANCE SYSTEM MONITOR HAND FORMER HELPER Unavailable Un available Blanquita Lindsey SURVEILLANCE SYSTEM MONITOR HAND FORMER HELPER Unavailable [phone] Kelsy Samayoa APRN HAND FORMER HELPER Unavailable Un available Jovany Salguero MD Unavailable +[phone] Kelsy Samayoa APRN HAND FORMER HELPER Unavailable Un available Judy Mcpherson MD Unavailable [phone] Kelsy Samayoa APRN HAND FORMER HELPER Unavailable Un available Jovany Salguero MD Unavailable +[phone] Bonifacio Bender MD Unavailable [phone] Janki OrtizC Unavailable [phone] Gera RowleyC Unavailable [phone] Bonifacio Bender MD Unavailable [phone] Didi Villarreal MD Unavailable [phone] Gera Rowley PA-C Unavailable Jovany Salguero MD Unavailable [phone] Cheko Lyons MD Unavailable Abraham Gutierres MD Unavailable Nereyda Saleem MD Unavailable [phone] Jovany Salguero MD Unavailable Ryan, Tawanna Mercedez GERMAN TEACHER Unavailable [phone] Gera Rowley PA-C Unavailable Abraham Gutierres MD Unavailable [phone] Yisel Soliman WELL DRILL OPERATOR CABLE TOOL Unavailable Denise Keys PEDIATRIC CLINICAL DIETICIAN Unavailable [phone] Harmony Bowden CHW Unavailable [phone] Ashley Romero GERMAN TEACHER Unavailable India Starr CHW Unavailable [phone] Lewis Chiu DO Unavailable [phone] Reason for Visit * Reason Comments Other Encounter Details Date Type Department Care Team (Late st Contact Info) Description 01/28/2014 Telephone [facility] Behavioral Health Intake [address] [place] [address] Generic, Behavioral Intake, Social History Tobacco Use Types Packs/Day Years Used Date Smoking Tobacco: Every Day Cigarettes 1.5 39 Smokeless Tobacco: Never Alcohol Use Standard Drinks/Week Comments Yes 1.7 (1 standard drink = 0.6 oz p ure alcohol) every night 2-3 beers Sex and Gender Information Value Date Recorded Sex Assigned at Not on file 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 Met with patient. He reports cutting back on alcohol use and plan for abstinenceusing AA meetings and sober friends. He also reports daily marijuana use which he reports using formedical concerns. He does not feel changes need to be made regarding his marijuana use. I informed him of finding alternative options for managing any medical concerns and to talk with his primary doctor. Recommending outpatient cd treatment at this time and support groups. Gave patient business card to follow up. MOTIVE FIRER documented in this encounter Plan of Treatment Not on file documented as of this encounter Visit Diagnoses Not on filedocumented in this encounter Additional Health Concerns Infection Onset Date Last Indicated Resolved Time COVID-19 06/22/2021 06/22/2021 07/13/2021 11:3 9 PM CDT documented as of this encounter Care Teams Glass Scullion Relationship Specialty Start Date End Date Judy Mcpherson MD [address] [facility] [address] [place] [address] PCP - General Internal Medicine 12/25/14 08/18/[address] [facility] [address] [place] [address] PCP - General Internal Medicine 08/19/18 10/01/18 Jovany Salguero MD [address] [place] [address] PCP - General Internal Medicine 10/02/18 Kelsy Samayoa APRN HAND FORMER HELPER PCP - Assigned PCP 10/06/18 01/28/19 Blanquita Lindsey APRN HAND FORMER HELPER [address] [place] [address] PCP - Assigned PCP 03/17/18 10/05/18 Daniela Bledsoe LISW Clinic Health Unit Clerk 10/03/18 01/30/19 Kelsy Samayoa APRN HAND FORMER HELPER Assigned PCP 10/06/18 06/28/19 Jovany Salguero MD [address] [place] [address] Assigned PCP 06/29/19 08/23/19 Kelsy Samayoa APRN HAND FORMER HELPER Assigned PCP 08/24/19 09/27/19 Judy Mcpherson MD [address] [facility] [address] [place] [address] Assigned PCP 09/28/19 10/11/19 Kelsy Samayoa APRN HAND FORMER HELPER Assigned PCP 10/12/19 09/04/20 Jovany Salguero MD [address] [place] [address] Assigned PCP 09/05/20 [place] [address] [facility] [address] [place], [place] [address] Assigned Musculoskeletal Provider 09/17/20 12/24/21 Janki Ortiz PA-C [address] [place] [address] [facility] [address] [place] [address] Physician Vocational Adviser Dermatology 09/29/21 Gera Rowley PA-C [address] [place] [address] [place] [address] Assigned Musculoskeletal Provider 07/29/22 10/13/22 [place] [address] [address] Assigned Musculoskeletal Provider 10/14/22 11/10/22 Didi Villarreal MD ORTHOPAEDIC SURGERY [address] [place] [address] Assigned Musculoskeletal Provider 11/11/22 02/16/23 Gera Rowley PA-C [address] [place] [address] [place] [address] Assigned Musculoskeletal Provider 02/17/23 05/04/23 Jovany Salguero MD [address] [place] [address] Assigned Pain Medication Provider 02/24/23 06/22/23 [place] [address] [address] [address] Assigned Musculoskeletal Provider 05/05/23 11/16/24 Abraham Gutierres MD [address] [place] [address] Assigned Neuroscience Provider 05/05/23 12/19/23 [place] [address] [place] [address] Assigned Pain Medication Provider 06/23/23 07/13/23 Jovany Salguero MD [address] [place] [address] Assigned Pain Medication Provider 07/14/23 Tawanna Davis, [facility] Lead Health Unit Clerk School Operations Manager - Clinical 12/17/23 02/29/24 Gera Rowley PA-C [address] [facility] [address] [place] [address] Assigned Neuroscience Provider 12/20/23 02/07/24 Abraham Gutierres MD [address] 392475 Assigned Neuroscience Provider 02/08/24 11/16/24 [place] [address] [place] [address] Nurse Practitioner Nurse Practitioner 02/14/24 Denise Keys, PEDIATRIC CLINICAL DIETICIAN [address] [place] [address] Lead Health Unit Clerk Primary Care - CC 02/29/2405/09 Harmony Bowden W Community Health Worker 03/26/2406/12 Ashley Romero, [facility] Lead Health Unit Clerk 05/09/24 India Starr Ed Community Health Worker 06/12/2412/24 [place] [address] [address] , [facility] [address] [place], [place] [address] Assigned Musculoskeletal Provider 11/17/24 documented as of this encounter
--- OUTSIDE RECORDS SUMMARY | 2025-01-23 19:37 | XMS_ITS | Encounter Summary ---
Author Organization [facility] Address [address] [facility] [place] [address] Care Team Providers Care Sys Dir Name Role Phone Judy Mcpherson MD Primary Care Provider [phone] [facility] Primary Care Provider Jovany Salguero MD Primary Care Provider [phone] Daniela Bledsoe Unavailable Unavai Kelsy Bryson FINISHING MACHINE OPERATOR STEM SIZER Unavailable Un available Blanquita Lindsey FINISHING MACHINE OPERATOR STEM SIZER Unavailable [phone] Kelsy Samayoa APRN STEM SIZER Unavailable Un available Jovany Salguero MD Unavailable +[phone] Kelsy Samayoa APRN STEM SIZER Unavailable Un available Judy Mcpherson MD Unavailable [phone] Kelsy Samayoa APRN STEM SIZER Unavailable Un available Jovany Salguero MD Unavailable [phone] Bonifacio Bender MD Unavailable [phone] Janki OrtizC Unavailable [phone] Gera RowleyC Unavailable [phone] Bonifacio Bender MD Unavailable [phone] Didi Villarreal MD Unavailable Gera Rowley PA-C Unavailable Jovany Salguero MD Unavailable [phone] Cheko Lyons MD Unavailable Abraham Gutierres MD Unavailable Nereyda Saleem MD Unavailable Jovany Salguero MD Unavailable Ryan, Tawanna Mercedez CORE DRILLING SUPERVISOR Unavailable [phone] Gera Rowley PA-C Unavailable Abraham Gutierres MD Unavailable [phone] Yisel Soliman FAIRING WORKER Unavailable Denise Keys APICULTURE TEACHER Unavailable [phone] Harmony Bowden CHW Unavailable [phone] Ashley Romero CORE DRILLING SUPERVISOR Unavailable India Starr CHW Unavailable [phone] Lewis Chiu DO Unavailable [phone] Reason for Visit * Reason Comments Home Care/Hospice Encounter Details Date Type Department Care Team (Late st Contact Info) Description 02/13/2018 Documentation Only [facility] [address] [place] [address] Renee Toth MD [address] [place] [address] Home Care/Hospice Social History Tobacco Use Types Packs/Day Years Used Date Smoking Tobacco: Every Day Cigarettes 2 39 Smokeless Tobacco: Never Comments:2 ppd smoker Alcohol Use Standard Drinks/Week Comments Yes 4 (1 standard drink = 0.6 oz pur e alcohol) every night 4 can of beer Sex and Gender Information Value Date Recorded Sex Assigned at Not on file Legal Sex Male 3:07 AM GEOGRAPHICAL HISTORIAN Gender Identity Not on file Sexual Orientation Not on file documented as of this encounter Plan of Treatment Not on file documented as of this encounter Visit Diagnoses Not on filedocumented in this encounter Additional Health Concerns Infection Onset Date Last Indicated Resolved Time COVID-19 06/22/2021 06/22/2021 07/13/2021 11:3 9 PM CDT Assessment Noted Time PHQ-9 Depression Total Score: 12 018 8:06 AM GEOGRAPHICAL HISTORIAN documented as of this encounter Care Teams Sys Dir Relationship Specialty Start Date End Date Judy Mcpherson MD [address] [address] PCP - General Internal Medicine 12/25/14 08/18/18 [facility] [address] [facility] [place] [address] PCP - General Internal Medicine 08/19/18 10/01/18 Jovany Salguero MD [address] [place] [address] PCP - General Internal Medicine 10/02/18 Kelsy Samayoa APRN STEM SIZER PCP - Assigned PCP 10/06/18 01/28/19 Blanquita Lindsey APRN STEM SIZER [address] [place] [address] PCP - Assigned PCP 03/17/18 10/05/18 Daniela Bledsoe LISW Clinic Clothing Sales Assistant 10/03/18 01/30/19 Kelsy Samayoa APRN STEM SIZER Assigned PCP 10/06/18 06/28/19 Jovany Salguero MD [address] [place] [address] Assigned PCP 06/29/19 08/23/19 Kelsy Samayoa APRN STEM SIZER Assigned PCP 08/24/19 09/27/19 Judy Mcpherson MD [address] [facility] [address] [place] [address] Assigned PCP 09/28/19 10/11/19 Kelsy Samayoa APRN STEM SIZER Assigned PCP 10/12/19 09/04/20 Jovany Salguero MD [address] [place] [address] Assigned PCP 09/05/20 [place] [address] [address] Assigned Musculoskeletal Provider 09/17/20 12/24/21 Janki Ortiz PA-C [address] [place] [address] [facility] 250 [place] [address] Physician Burglar Alarm Inspector Dermatology 09/29/21 Gera Rowley PA-C [address] [address] Assigned Musculoskeletal Provider 07/29/22 10/13/22 [place] [address] 776967 Assigned Musculoskeletal Provider 10/14/22 11/10/22 Didi Villarreal MD ORTHOPAEDIC SURGERY [address] [place] [address] Assigned Musculoskeletal Provider 11/11/22 02/16/23 Gera Rowley PA-C [address] [place] [address] [place] [address] Assigned Musculoskeletal Provider 02/17/23 05/04/23 Jovany Salguero MD [address] [place] [address] Assigned Pain Medication Provider 02/24/23 06/22/23 [place] [address] [place] [facility] [place] [address] Assigned Musculoskeletal Provider 05/05/23 11/16/24 Abraham Gutierres MD [address] [place] [address] Assigned Neuroscience Provider 05/05/23 12/19/23 [place] [address] [place] [address] Assigned Pain Medication Provider 06/23/23 07/13/23 Jovany Salguero MD [address] [place] [address] Assigned Pain Medication Provider 07/14/23 Tawanna Davis, [facility] Lead Clothing Sales Assistant Tobacco Farmworker - Clinical 12/17/23 02/29/24 Gera Rowley PA-C [address] [place] [address] [place] [address] Assigned Neuroscience Provider 12/20/23 02/07/24 Abraham Gutierres MD [address] [facility] [address] [place] [address] Assigned Neuroscience Provider 02/08/24 11/16/24 Yisel Soliman, MANIS[place] [address] [place] [address] Nurse Practitioner Nurse Practitioner 02/14/24 Denise Keys, [place] [address] [place] [address] Lead Clothing Sales Assistant Primary Care - CC 02/29/2405/09 Harmony Bowden [facility] Community Health Worker 03/26/2406/12 Ashley Romero, [facility] Lead Clothing Sales Assistant 05/09/24 India Starr [facility] Community Health Worker 06/12/2412/24 [place] [address] [address] , [facility] [address] [place] [address] Assigned Musculoskeletal Provider 11/17/24 documented as of this encounter
--- OUTSIDE RECORDS SUMMARY | 2025-01-23 19:37 | XMS_ITS | Encounter Summary ---
Author Organization [place] Address [address] [facility] [place] [address] Care Team Providers Care Collarette Separator Name Role Phone Judy Mcpherson MD Primary Care Provider [phone] [facility] Primary Care Provider Jovany Salguero MD Primary Care Provider [phone] Daniela Bledsoe Unavailable Unavai Kelsy Bryson AQUATIC LIFE LABORER SECURITY PROJECT MANAGER Unavailable Un available Blanquita Lindsey AQUATIC LIFE LABORER SECURITY PROJECT MANAGER Unavailable [phone] Kelsy Samayoa APRN SECURITY PROJECT MANAGER Unavailable Un available Jovany Salguero MD Unavailable +[phone] Kelsy Samayoa APRN SECURITY PROJECT MANAGER Unavailable Un available Judy Mcpherson MD Unavailable +[phone] Kelsy Samayoa APRN SECURITY PROJECT MANAGER Unavailable Un available Jovany Salguero MD Unavailable +[phone] Bonifacio Bender MD Unavailable [phone] Janki OrtizC Unavailable [phone] Gera RowleyC Unavailable [phone] Bonifacio Bender MD Unavailable [phone] Didi Villarreal MD Unavailable [phone] Gera Rowley PA-C Unavailable Jovany Salguero MD Unavailable [phone] Cheko Lyons MD Unavailable Abraham Gutierres MD Unavailable Nereyda Saleem MD Unavailable [phone] Jovany Salguero MD Unavailable Ryan, Tawanna Mercedez FINANCIAL AID ADMINISTRATOR Unavailable Gera Rowley PA-C Unavailable Abraham Gutierres MD Unavailable [phone] Yisel Soliman INFORMATION MANAGER Unavailable Denise Keys ELECTRICIAN REFINERY Unavailable Harmony Bowden CHW Unavailable [phone] Ashley Romero FINANCIAL AID ADMINISTRATOR Unavailable India Starr CHW Unavailable [phone] Lewis Chiu DO Unavailable [phone] Reason for Visit * Reason Comments Home Care/Hospice Encounter Details Date Type Department Care Team (Late st Contact Info) Description 02/11/2018 Documentation Only [facility] [address] [place] [address] Renee Toth MD [address] [place] [address] Home Care/Hospice Social History Tobacco Use Types [...] on file Legal Sex Male 3:07 AM DOUBLE END SEWER Gender Identity Not on file Sexual Orientation Not on file documented as of this encounter Plan of Treatment Not on file documented as of this encounter Visit Diagnoses Not on filedocumented in this encounter Additional Health Concerns Infection Onset Date Last Indicated Resolved Time COVID-19 06/22/2021 06/22/2021 07/13/2021 11:3 9 PM CDT Assessment Noted Time PHQ-9 Depression Total Score: 12 018 8:06 AM DOUBLE END SEWER documented as of this encounter Care Teams Collarette Separator Relationship Specialty Start Date End Date Judy Mcpherson MD [address] [address] PCP - General Internal Medicine 12/25/14 08/18/18 [facility] [address] [facility] [place] [address] PCP - General Internal Medicine 08/19/18 10/01/18 Jovany Salguero MD [address] [place] [address] PCP - General Internal Medicine 10/02/18 Kelsy Samayoa APRN SECURITY PROJECT MANAGER PCP - Assigned PCP 10/06/18 01/28/19 Blanquita Lindsey APRN SECURITY PROJECT MANAGER [address] [place] [address] PCP - Assigned PCP 03/17/18 10/05/18 Daniela Bledsoe LISW Clinic College Service Officer 10/03/18 01/30/19 Kelsy Samayoa APRN SECURITY PROJECT MANAGER Assigned PCP 10/06/18 06/28/19 Jovany Salguero MD [address] [place] [address] Assigned PCP 06/29/19 08/23/19 Kelsy Samayoa APRN SECURITY PROJECT MANAGER Assigned PCP 08/24/19 09/27/19 Judy Mcpherson MD [address] [facility] [address] [place] [address] Assigned PCP 09/28/19 10/11/19 Kelsy Samayoa APRN SECURITY PROJECT MANAGER Assigned PCP 10/12/19 09/04/20 Jovany Salguero MD [address] [place] [address] Assigned PCP 09/05/20 [place] [address] [address] Assigned Musculoskeletal Provider 09/17/20 12/24/21 Janki Ortiz PA-C [address] [place] [address] [facility] [address] [place] [address] Physician Paper Feeder Dermatology 09/29/21 Gera Rowley PA-C [address] [address] Assigned Musculoskeletal Provider 07/29/22 10/13/22 [place] [address] [address] Assigned Musculoskeletal Provider 10/14/22 11/10/22 Didi Villarreal MD ORTHOPAEDIC SURGERY [address] [place] [address] Assigned Musculoskeletal Provider 11/11/22 02/16/23 Gera Rowley PA-C [address] [place] [address] [place] [address] Assigned Musculoskeletal Provider 02/17/23 05/04/23 Jovany Salguero MD [address] [place] [address] Assigned Pain Medication Provider 02/24/23 06/22/23 [place] [address] [place] [address] Assigned Musculoskeletal Provider 05/05/23 11/16/24 Abraham Gutierres MD [address] [place] [address] Assigned Neuroscience Provider 05/05/23 12/19/23 [place] [address] [place] [address] Assigned Pain Medication Provider 06/23/23 07/13/23 Jovany Salguero MD [address] [place] [address] Assigned Pain Medication Provider 07/14/23 Tawanna Davis, [facility] Lead College Service Officer Control And Recovery Special Tactics - Clinical 12/17/23 02/29/24 Gera Rowley PA-C [address] [place] [address] [place] [address] Assigned Neuroscience Provider 12/20/23 02/07/24 Abraham Gutierres MD 420 [facility] 96 [place] [address] Assigned Neuroscience Provider 02/08/24 11/16/24 Yisel Soliman, [place] [address] [place] [address] Nurse Practitioner Nurse Practitioner 02/14/24 Denise Keys, L[place]ND[place] [address] [place] [address] Lead College Service Officer Primary Care - CC 02/29/2405/09 Harmony Bowden [facility] Community Health Worker 03/26/2406/12 Ashley Romero, [facility] Lead College Service Officer 05/09/24 India Starr [facility] Community Health Worker 06/12/2412/24 [place] [address] [place] , [facility] [address] [place] [address] Assigned Musculoskeletal Provider 11/17/24 documented as of this encounter
--- OUTSIDE RECORDS SUMMARY | 2025-01-23 19:37 | XMS_ITS | Encounter Summary ---
Author Organization [place] Address [address] [facility] [place] [address] Care Team Providers Care Painter Barrel Name Role Phone Judy Mcpherson MD Primary Care Provider [phone] [facility] Primary Care Provider Jovany Salguero MD Primary Care Provider [phone] Daniela Bledsoe Unavailable Unavai Kelsy Bryson INSTRUMENT LENS GENERATOR ORDNANCE ENGINEER Unavailable Un available Blanquita Lindsey INSTRUMENT LENS GENERATOR ORDNANCE ENGINEER Unavailable [phone] Kelsy Samayoa APRN ORDNANCE ENGINEER Unavailable Un available Jovany Salguero MD Unavailable [phone] Kelsy Samayoa APRN ORDNANCE ENGINEER Unavailable Un available Judy Mcpherson MD Unavailable [phone] Kelsy Samayoa APRN ORDNANCE ENGINEER Unavailable Un available Jovany Salguero MD Unavailable [phone] Bonifacio Bender MD Unavailable [phone] Janki OrtizC Unavailable [phone] Gera RowleyC Unavailable [phone] Bonifacio Bender MD Unavailable [phone] Didi Villarreal MD Unavailable Gera Rowley PA-C Unavailable Jovany Salguero MD Unavailable Cheko Lyons MD Unavailable Abraham Gutierres MD Unavailable [phone] Nereyda Saleem MD Unavailable [phone] Jovany Salguero MD Unavailable [phone] Ryan, Tawanna Mercedez MECHANICAL ORDNANCE ASSEMBLER Unavailable [phone] Gera Rowley PA-C Unavailable Abraham Gutierres MD Unavailable Yisel Soliman ELECTRONIC SYSTEMS TECHNICIAN Unavailable [phone] Denise Keys BATTERY PLATE REMOVER Unavailable [phone] Harmony Bowden CHW Unavailable [phone] Ashley Romero MECHANICAL ORDNANCE ASSEMBLER Unavailable India Starr CHW Unavailable [phone] Lewis Chiu DO Unavailable [phone] Reason for Visit * Reason Onset Date Comments CD Outpatient 10/16/2014 Encounter Details Date Type Department Care Team ([facility] Contact Info) Description 10/16/2014 Telephone [facility] Behavioral Health Intake [address] [place] [address] Generic, Behavioral Intake, CD Outpatient Social History Tobacco Use Types Packs/Day Years Used Date Smoking Tobacco: Every Day Cigarettes 1.5 39 Smokeless Tobacco: Never Comments:1 1/2 PPD Alcohol Use Standard Drinks/Week Comments Yes 1.7 (1 standard drink = 0.6 oz p ure alcohol) every night 2-3 beers Sex and Gender Information Value Date Recorded Sex Assigned at Not on file Legal Sex Male 3:07 AM PROPERTY MANAGEMENT INTERN Gender Identity Not on file Sexual Orientation Not on file documented as of this encounter Miscellaneous Notes * Telephone Encounter - Juan Carlos Schmidt - 10/19/2014 1:09 PM CST Another consult ordered written. Client now on [facility] 3Myrna Rodgers notified. kadeacon ERTY MANAGEMENT INTERN * Telephone Encounter - Danyelle Pierre - 10/16/2014 4:14 PM CST 10-16-14 [facility] ordered cd consult. Called and pool message sent to [employer]. Sent for bennies. granados ERTY MANAGEMENT INTERN documented in this encounter Plan of Treatment Not on file documented as of this encounter Visit Diagnoses Not on filedocumented in this encounter Additional Health Concerns Infection Onset Date Last Indicated Resolved Time COVID-19 06/22/2021 06/22/2021 07/13/2021 11:3 9 PM CDT documented as of this encounter Care Teams Painter Barrel Relationship Specialty Start Date End Date Judy Mcpherson MD [address] [address] [phone] PCP - General Internal Medicine 12/25/14 08/18/18 [facility] [address] [place] [address] PCP - General Internal Medicine 08/19/18 10/01/18 Jovany Salguero MD [address] [place] [address] PCP - General Internal Medicine 10/02/18 Kelsy Samayoa APRN ORDNANCE ENGINEER PCP - Assigned PCP 10/06/18 01/28/19 Blanquita Lindsey APRN ORDNANCE ENGINEER [address] [place], [place] [address] [phone] PCP - Assigned PCP 03/17/18 10/05/18 Daniela Bledsoe, PUBLIC RELATIONS SPECIALIST Clinic Night Clerk 10/03/18 01/30/19 Kelsy Samayoa APRN ORDNANCE ENGINEER Assigned PCP 10/06/18 06/28/19 Jovany Salguero MD [address] [place] [address] Assigned PCP 06/29/19 08/23/19 Kelsy Samayoa APRN ORDNANCE ENGINEER Assigned PCP 08/24/19 09/27/19 Judy Mcpherson MD [address] [facility] [address] [place] [address] Assigned PCP 09/28/19 10/11/19 Kelsy Samayoa APRN ORDNANCE ENGINEER Assigned PCP 10/12/19 09/04/20 Jovany Salguero MD [address] [place], [place] [address] Assigned PCP 09/05/20 [place] [address] [facility] [address] [place] [address] Assigned Musculoskeletal Provider 09/17/20 12/24/21 Janki Ortiz PA-C [address] [place] [address] [facility] [address] [address] Physician Gravity Prospecting Operator Dermatology 09/29/21 Gera Rowley PA-C [address] [facility] [address] [place] [address] Assigned Musculoskeletal Provider 07/29/22 10/13/22 [place] [address] [facility] [address] [place] [address] Assigned Musculoskeletal Provider 10/14/22 11/10/22 Didi Villarreal MD ORTHOPAEDIC SURGERY [address] [address] Assigned Musculoskeletal Provider 11/11/22 02/16/23 Gera Rowley PA-C [address] [facility] [address] [place] [address] Assigned Musculoskeletal Provider 02/17/23 05/04/23 Jovany Salguero MD [address] [place] [address] Assigned Pain Medication Provider 02/24/23 06/22/23 [place] [address] [address] Assigned Musculoskeletal Provider 05/05/23 11/16/24 Abraham Gutierres MD [address] [place] [address] Assigned Neuroscience Provider 05/05/23 12/19/23 [place] [address] [place] [address] Assigned Pain Medication Provider 06/23/23 07/13/23 Jovany Salguero MD [address] [place] [address] Assigned Pain Medication Provider 07/14/23 Tawanna Davis, [facility] Lead Night Clerk Greige Goods Examiner - Clinical 12/17/23 02/29/24 Gera Rowley PA-C [address] [facility] [address] [place] [address] Assigned Neuroscience Provider 12/20/23 02/07/24 Abraham Gutierres MD [address] [place] [address] Assigned Neuroscience Provider 02/08/24 11/16/24 [place] [address] [place] [address] Nurse Practitioner Nurse Practitioner 02/14/24 Denise Keys, BATTERY PLATE REMOVER [address] [place] [address] Lead Night Clerk Primary Care - CC 02/29/2405/09 Harmony Bowden, [facility] Community Health Worker 03/26/2406/12 Ashley Romero, [facility] Lead Night Clerk 05/09/24 India Starr [facility] Community Health Worker 06/12/2412/24 [place] [address] [address], [address] [address] Assigned Musculoskeletal Provider 11/17/24 documented as of this encounter
--- OUTSIDE RECORDS SUMMARY | 2025-01-23 19:37 | XMS_ITS ---
Author Organization [place] Address [address] [facility] [place] [address] Care Team Providers Care Editorial Manager Name Role Phone Jovany Salguero MD Primary Care Provider Jovany Salguero MD Unavailable [phone] Janki OrtizC Unavailable Jovany Salguero MD Unavailable Yisel Soliman NP Unavailable Ashley Romero Unavailable Lewis Chiu DO Unavailable [phone] Primary Care Care Coordination Status:Enrolled (Active) Start date:12/17/2023 Enrollment date:12/17/2023 Case Team Name Relationship Phone Ashley MULLEN Lead Soft Sugar Supervisor(Res ponsible Staff) [phone] Continued Care and Services Coordination
--- OUTSIDE RECORDS SUMMARY | 2025-01-23 19:37 | XMS_ITS | Encounter Summary ---
Author Organization [place] Address [address] [place] [address] Care Team Providers Care Vermin Exterminator Name Role Phone Jovany Salguero MD Primary Care Provider [phone] Jovany Salguero MD Unavailable Janki Ortiz PA-C Unavailable [phone] Cheko Lyons MD Unavailable Abraham Gutierres MD Unavailable Jovany Salguero MD Unavailable Tawanna Davis CUTTING TORCH OPERATOR Unavailable [phone] Gera RowleyC Unavailable [phone] Abraham Gutierres MD Unavailable Yisel Soliman APPLIANCE LINE ASSEMBLER Unavailable [phone] Denise Keys CD STORAGE AND MATERIALS MAKE UP HELPER Unavailable [phone] Harmony Bowden CHW Unavailable [phone] Ashley Romero CUTTING TORCH OPERATOR Unavailable India Starr CHW Unavailable [phone] Apple, Lewis DO Unavailable [phone] Reason for Visit * Reason Onset Date Comments Medication Request 09/12/2023 Encounter Details Date Type Department Care Team (Late st Contact Info) Description 09/12/2023 Telephone [facility] Pain Management [place] [address] [facility] [address] [place] [address] [place] [address] [id number] Medication Request Social History Tobacco Use Types Packs/Day Years Used Date Smoking Tobacco: Some Days Cigarettes 1 39 Smokeless Tobacco: Never Comments:1 ppd smoker Alcohol Use Standard Drinks/Week Comments Yes 4 (1 standard drink = 0.6 oz pur e alcohol) Occas PHQ-2 Answer Date Recorded PHQ-2 Score 0 08/13/2023 Adolescent Education Answer Date Record ed Getting School Help Needed Not on file 08/25 Sex and Gender Information Value Date Recorded Sex Assigned at Not on file Legal Sex Male 3:07 AM LABORATORY DIRECTOR Gender Identity Not on file Sexual Orientation Not on file COVID-19 Exposure Response Date Recorded In the last 10 days, have yo u been in contact with someone who was confirmed or suspected to have Coronavirus/COVID-19? No / Unsure 08/13/2023 3:06 PM CDT documented as of this encounter Miscellaneous Notes * Telephone Encounter - Christina Piper RN - 09/12/2023 2:49 PM CDT Spoke with pt. He sates that he called for a refill today and Dr Salguero's care team told him that he needed us to manage his meds moving forward. Discussed with pt that we have not seen him clinically as he was an inj only referral from neurosurgery and therefore we would not manage meds for patient at this time as we have not taken on prescribing role/deemed this appropriate care for pt. If PCP wants to enter a Pain Management consult pt can come in to establish care and discuss further management. Discussed program however, pt is hesitant to engage in comprehensive management outside of medication prescribing, discussed this is a requirement of our program. Pt states he will think about if he wants help coordinating referral and call back at later date. Christina Scott RN General Adjuster [facility] * Telephone Encounter - Cherelle Laird - 09/12/2023 1:52 PM CDT [facility] Phone Message May a detailed message be left on voicemail: yes Reason for Call: Pt said that his PCP will no longer prescribe him Oxycodone 5mg. They told him to contact us. He wants to know if Nereyda Saleem will prescribe this for him. He uses [facility] in [place]. Please call him back to discuss. Thanks. documented in this encounter Plan of Treatment Not on file documented as of this encounter Visit Diagnoses Not on filedocumented in this encounter Additional Health Concerns Assessment Noted Time PHQ-9 Depression Total Score: 5 08/13/20 3:18 PM CDT documented as of this encounter Care Teams Vermin Exterminator Relationship Specialty Start Date End Date Jovany Salguero MD [address] [place] [address] PCP - General Internal Medicine 10/02/18 Jovany Salguero MD [address] [place] [address] Assigned PCP 09/05/20 Janki Ortiz PA-C [address] [place] [address] [address] [address] Physician Marking Machine Tender Dermatology 09/29/21 [place] [address] [place] [address] Assigned Musculoskeletal Provider 05/05/23 11/16/24 Abraham Gutierres MD [address] [address] Assigned Neuroscience Provider 05/05/23 12/19/23 Jovany Salguero MD [address] [place] [address] Assigned Pain Medication Provider 07/14/23 Tawanna Davis, [facility] Lead General Adjuster Fence Rider - Clinical 12/17/23 02/29/24 Gera Rowley PA-C [address] [address] Assigned Neuroscience Provider 12/20/23 02/07/24 Abraham Gutierres MD [address] [address] Assigned Neuroscience Provider 02/08/24 11/16/24 Yisel Soliman, [place] [address] [place] [address] Nurse Practitioner Nurse Practitioner 02/14/24 Denise Keys, CD STORAGE AND MATERIALS MAKE UP HELPER [address] [place] [address] Lead General Adjuster Primary Care - CC 02/29/24 05/09/24 Harmony Bowden CHW Community Health Worker 03/26/24 06/12/24 Ashley Romero, [facility] Lead General Adjuster 05/09/24 India Starr CHW Community Health Worker 06/12/24 12/24/24 [place] [address] [address], [address] [address] Assigned Musculoskeletal Provider 11/17/24 documented as of this encounter
--- OUTSIDE RECORDS SUMMARY | 2025-01-23 19:37 | XMS_ITS | Encounter Summary ---
Author Organization [place] Address [address] [facility] [address] Care Team Providers Care Director Of Adult Epilepsy Name Role Phone Judy Mcpherson MD Primary Care Provider [phone] [facility] Primary Care Provider Jovany Salguero MD Primary Care Provider [phone] Daniela Bledsoe Unavailable Unavai Kelsy Bryson FARM ADVISER LIQUEFIED NATURAL GAS PLANT OPERATOR Unavailable Un available Blanquita Lindsey FARM ADVISER LIQUEFIED NATURAL GAS PLANT OPERATOR Unavailable [phone] Kelsy Samayoa APRN LIQUEFIED NATURAL GAS PLANT OPERATOR Unavailable Un available Jovany Salguero MD Unavailable [phone] Kelsy Samayoa APRN LIQUEFIED NATURAL GAS PLANT OPERATOR Unavailable Un available Judy Mcpherson MD Unavailable [phone] Kelsy Samayoa APRN LIQUEFIED NATURAL GAS PLANT OPERATOR Unavailable Un available Jovany Salguero MD Unavailable [phone] Bonifacio Bender MD Unavailable [phone] Janki OrtizC Unavailable [phone] Gera RowleyC Unavailable [phone] Bonifacio Bender MD Unavailable [phone] Didi Villarreal MD Unavailable Gera Rowley PA-C Unavailable Jovany Salguero MD Unavailable Cheko Lyons MD Unavailable Abraham Gutierres MD Unavailable [phone] Nereyda Saleem MD Unavailable [phone] Jovany Salguero MD Unavailable Ryan, Tawanna Mercedez SERVICE OBSERVER CHIEF Unavailable Gera Rowley PA-C Unavailable Abraham Gutierres MD Unavailable Yisel Soliman ELECTRONIC ENGRAVER Unavailable Denise Keys MARINE WELDER Unavailable [phone] Harmony Bowden CHW Unavailable [phone] Ashley Romero SERVICE OBSERVER CHIEF Unavailable India Starr CHW Unavailable [phone] Lewis Chiu DO Unavailable [phone] Reason for Visit * Reason Onset Date Comments Refill Request 08/21/2013 Encounter Details Date Type Department Care Team (Late st Contact Info) Description 08/21/2013 [facility] [address] [place] [address] [address] [place] [address] Sam Peterson MD XXX RESIGNED XXX [address] [facility] [address] [place] [address] Refill Request Social History Tobacco Use Types Packs/Day Years Used Date Smoking Tobacco: Every Day Cigarettes 0.5 39 Smokeless Tobacco: Never Alcohol Use Standard Drinks/Week Comments Yes 2.5 (1 standard drink = 0.6 oz p ure alcohol) every night 2-3 beers Sex and Gender Information Value Date Recorded Sex Assigned at Not on file 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 Gender Identity Not on file Sexual Orientation Not on file documented as of this encounter Miscellaneous Notes * Telephone Encounter - Rachelle Turner - 08/21/2013 11:01 AM CDT Pending Prescriptions: Disp Refills [id number] (CREON 24) 26641 *180 ca*3 Sig: Take 1 capsule (24,000 Units) by mouth 3 times daily (with meals) [facility] [address] [facility] [address] Last seen: 08/06/13 Last fill: 02/09/13 Ana Maria Watson MA documented in this encounter Plan of Treatment Not on file documented as of this encounter Visit Diagnoses Diagnosis Pancreatic insufficiency- Primary Other specified disease of pancreas documented in this encounter Additional Health Concerns Infection Onset Date Last Indicated Resolved Time COVID-19 06/22/2021 06/22/2021 07/13/2021 11:3 9 PM CDT documented as of this encounter Care Teams Director Of Adult Epilepsy Relationship Specialty Start Date End Date Judy Mcpherson MD [address] [place] [address] PCP - General Internal Medicine 12/25/14 08/18/18 [facility] [address] [place] [address] PCP - General Internal Medicine 08/19/18 10/01/18 Jovany Salguero MD [address] [place], [place] [address] PCP - General Internal Medicine 10/02/18 Kelsy Samayoa APRN LIQUEFIED NATURAL GAS PLANT OPERATOR PCP - Assigned PCP 10/06/18 01/28/19 Blanquita Lindsey APRN LIQUEFIED NATURAL GAS PLANT OPERATOR [address] [place] [address] PCP - Assigned PCP 03/17/18 10/05/18 Daniela Bledsoe [facility] Feller Seam Operator 10/03/18 01/30/19 Kelsy Samayoa, PRIYA LIQUEFIED NATURAL GAS PLANT OPERATOR Assigned PCP 10/06/18 06/28/19 Jovany Salguero MD [address] [place] [address] Assigned PCP 06/29/19 08/23/19 Kelsy Samayoa APRN LIQUEFIED NATURAL GAS PLANT OPERATOR Assigned PCP 08/24/19 09/27/19 Judy Mcpherson MD [address] [facility] [address] [place] [address] Assigned PCP 09/28/19 10/11/19 Kelsy Samayoa APRN LIQUEFIED NATURAL GAS PLANT OPERATOR Assigned PCP 10/12/19 09/04/20 Jovany Salguero MD [address] [place] [address] Assigned PCP 09/05/20 [place] [address] [facility] [address] [place] [address] Assigned Musculoskeletal Provider 09/17/20 12/24/21 Janki Ortiz PA-C [address] [place] [address] [address] [facility] [place] [address] Physician Household Worker Dermatology 09/29/21 Gera Rowley PA-C [address] [place] [address] [place] [address] Assigned Musculoskeletal Provider 07/29/22 10/13/22 [place] [address] [address] Assigned Musculoskeletal Provider 10/14/22 11/10/22 Didi Villarreal MD ORTHOPAEDIC SURGERY [address] [place] [address] Assigned Musculoskeletal Provider 11/11/22 02/16/23 Gera Rowley PA-C [address] [facility] [address] [place] [address] Assigned Musculoskeletal Provider 02/17/23 05/04/23 Jovany Salguero MD [address] [place] [address] Assigned Pain Medication Provider 02/24/23 06/22/23 [place] [address] [address] Assigned Musculoskeletal Provider 05/05/23 11/16/24 Abraham Gutierres MD [address] [place] [address] Assigned Neuroscience Provider 05/05/23 12/19/23 [place] [address] [place] [address] Assigned Pain Medication Provider 06/23/23 07/13/23 Jovany Salguero MD [address] [place], [place] [address] Assigned Pain Medication Provider 07/14/23 Tawanna Davis, [facility] Lead Feller Seam Operator Construction Rep - Clinical 12/17/23 02/29/24 Gera Rowley PA-C [address] [address] Assigned Neuroscience Provider 12/20/23 02/07/24 Abraham Gutierres MD [address] [place] [address] Assigned Neuroscience Provider 02/08/24 11/16/24 [place] [address] [place] 30[address] Nurse Practitioner Nurse Practitioner 02/14/24 Denise Keys, MARINE WELDER [address] [place] [address] Lead Feller Seam Operator Primary Care - CC 02/29/2405/09 Harmony Bowden, W Community Health Worker 03/26/2406/12 Ashley Romero, [facility] Lead Feller Seam Operator 05/09/24 India Starr W Community Health Worker 06/12/2412/24 [place] [address] [place] [address] Assigned Musculoskeletal Provider 11/17/24 documented as of this encounter
--- OUTSIDE RECORDS SUMMARY | 2025-01-23 19:37 | XMS_ITS ---
Author Organization [place] Address [address] [facility] [place] [address] Care Team Providers Care Project Development Coordinator Name Role Phone Jovany Salguero MD Primary Care Provider [phone] Jovany Salguero MD Unavailable [phone] Janki Ortiz-C Unavailable [phone] Jovany Salguero MD Unavailable [phone] Yisel Soliman NP Unavailable [phone] Ashley Romero PLASTIC FIXTURE BUILDER Unavailable [phone] Lewis Chiu DO Unavailable [phone] Financial Resource Worker Status:Closed (Closed) Start date:06/27/2024 Enrollment date:07/07/2024 End date:01/12/2025 Close reason:Unable to reach patient Continued Care and Services Coordination
--- OUTSIDE RECORDS SUMMARY | 2025-01-23 19:37 | XMS_ITS | Encounter Summary ---
Author Organization [place] Address [address] [facility] [place] [address] Care Team Providers Care Home Health Aide Name Role Phone Judy Mcpherson MD Primary Care Provider [phone] [facility] Primary Care Provider Jovany Salguero MD Primary Care Provider [phone] Daniela Bledsoe Unavailable Unavai Kelsy Bryson STITCHER FEEDER ELECTRONIC TECHNICIAN Unavailable Un available Blanquita Lindsey STITCHER FEEDER ELECTRONIC TECHNICIAN Unavailable [phone] Kelsy Samayoa APRN ELECTRONIC TECHNICIAN Unavailable Un available Jovany Salguero MD Unavailable [phone] Kelsy Samayoa APRN ELECTRONIC TECHNICIAN Unavailable Un available Judy Mcpherson MD Unavailable [phone] Kelsy Samayoa APRN ELECTRONIC TECHNICIAN Unavailable Un available Jovany Salguero MD Unavailable [phone] Bonifacio Bender MD Unavailable [phone] Janki OrtizC Unavailable [phone] Gera RowleyC Unavailable [phone] Bonifacio Bender MD Unavailable [phone] Didi Villarreal MD Unavailable Gera Rowley PA-C Unavailable Jovany Salguero MD Unavailable Cheko Lyons MD Unavailable Abraham Gutierres MD Unavailable [phone] Nereyda Saleem MD Unavailable [phone] Jovany Salguero MD Unavailable Ryan, Tawanna Mercedez PRINTING GRAY CLOTH TENDER Unavailable Gera Rowley PA-C Unavailable Abraham Gutierres MD Unavailable Yisel Soliman STOCK OR DELIVERY CLERK Unavailable Denise Keys WINDOWS SECURITY ENGINEER Unavailable [phone] Harmony Bowden CHW Unavailable [phone] Ashley Romero PRINTING GRAY CLOTH TENDER Unavailable India Starr CHW Unavailable [phone] Lewis Chiu DO Unavailable [phone] Reason for Visit * Reason Comments Home Care/Hospice Encounter Details Date Type Department Care Team (Late st Contact Info) Description 02/07/2018 Documentation Only [facility] [address] [place] [phone] Judy Mcpherson MD [address] [facility] [address] [place] [address] Home Care/Hospice Social History Tobacco Use Types [...] on file 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 Gender Identity Not on file Sexual Orientation Not on file documented as of this encounter Plan of Treatment Not on file documented as of this encounter Visit Diagnoses Not on filedocumented in this encounter Additional Health Concerns Infection Onset Date Last Indicated Resolved Time COVID-19 06/22/2021 06/22/2021 07/13/2021 11:3 9 PM CDT Assessment Noted Time PHQ-9 Depression Total Score: 12 018 8:06 AM LINE LEADER documented as of this encounter Care Teams Home Health Aide Relationship Specialty Start Date End Date Judy Mcpherson MD [address] [address] PCP - General Internal Medicine 12/25/14 08/18/18 [facility] [address] [facility] [place] [address] PCP - General Internal Medicine 08/19/18 10/01/18 Jovany Salguero MD [address] [place] [address] PCP - General Internal Medicine 10/02/18 Kelsy Samayoa APRN ELECTRONIC TECHNICIAN PCP - Assigned PCP 10/06/18 01/28/19 Blanquita Lindsey APRN ELECTRONIC TECHNICIAN [address] [place] [address] PCP - Assigned PCP 03/17/18 10/05/18 Daniela Bledsoe [facility] Cordage Sales Representative 10/03/18 01/30/19 Kelsy Samayoa APRN ELECTRONIC TECHNICIAN Assigned PCP 10/06/18 06/28/19 Jovany Salguero MD [address] [place] [address] Assigned PCP 06/29/19 08/23/19 Kelsy Samayoa APRN ELECTRONIC TECHNICIAN Assigned PCP 08/24/19 09/27/19 Judy Mcpherson MD [address] [facility] [address] [place] [address] Assigned PCP 09/28/19 10/11/19 Kelsy Samayoa APRN ELECTRONIC TECHNICIAN Assigned PCP 10/12/19 09/04/20 Jovany Salguero MD [address] [place] [address] Assigned PCP 09/05/20 [place] [address] [address] Assigned Musculoskeletal Provider 09/17/20 12/24/21 Janki Ortiz PA-C [address] [place] [address] [facility] [address] [place] [address] Physician Firing Pin Gauger Dermatology 09/29/21 Gera Rowley PA-C [address] [address] Assigned Musculoskeletal Provider 07/29/22 10/13/22 [place] [address] [address] Assigned Musculoskeletal Provider 10/14/22 11/10/22 Didi Villarreal MD ORTHOPAEDIC SURGERY [address] [place] [address] Assigned Musculoskeletal Provider 11/11/22 02/16/23 Gera Rowley PA-C [address] [place] [address] [place] [address] Assigned Musculoskeletal Provider 02/17/23 05/04/23 Jovany Salguero MD [address] [place] [address] Assigned Pain Medication Provider 02/24/23 06/22/23 [place] [address] [place] [facility] [place] [address] Assigned Musculoskeletal Provider 05/05/23 11/16/24 Abraham Gutierres MD [address] [place] [address] Assigned Neuroscience Provider 05/05/23 12/19/23 [place] [address] [place] [address] Assigned Pain Medication Provider 06/23/23 07/13/23 Jovany Salguero MD [address] [place] [address] Assigned Pain Medication Provider 07/14/23 Tawanna Davis, [facility] Lead Cordage Sales Representative [employer] - Clinical 12/17/23 02/29/24 Gera Rowley PA-C [address] [place] [address] [place] [address] Assigned Neuroscience Provider 12/20/23 02/07/24 Abraham Gutierres MD [address] [place] [address] [address] [place] [address] Assigned Neuroscience Provider 02/08/24 11/16/24 Yisel Soliman, MANIS[place] [address] [place] [address] Nurse Practitioner Nurse Practitioner 02/14/24 Denise Keys, WINDOWS SECURITY ENGINEER [address] [place] [address] Lead Cordage Sales Representative Primary Care - CC 02/29/2405/09 Harmony Bowden [facility] Community Health Worker 03/26/2406/12 Ashley Romero, [facility] Lead Cordage Sales Representative 05/09/24 India Starr [facility] Community Health Worker 06/12/2412/24 [place] [address] [address] [facility] [address] [place] [address] Assigned Musculoskeletal Provider 11/17/24 documented as of this encounter
--- OUTSIDE RECORDS SUMMARY | 2025-01-23 19:38 | XMS_ITS | Encounter Summary ---
Author Organization [place] Address [address] [facility] [place] [address] Care Team Providers Care Marine Service Manager Name Role Phone Jovany Salguero MD Primary Care Provider Jovany Sagluero MD Unavailable Janki Ortiz PA-C Unavailable Jovany Salguero MD Unavailable [phone] Yisel Soliman NP Unavailable [phone] Ashley Romero STARBUCKS CLERK Unavailable Lewis Chiu DO Unavailable [phone] Reason for Visit * Reason Onset Date Comments Refill Request 12/29/2024 Encounter Details Date Type Department Care Team (Late st Contact Info) Description 12/29/2024 Refill [facility] [address] [place] [address] Jovany Salguero MD [address] [place] [address] Refill Request Social History Tobacco [...] than three times a week 02/05/2024 Attends Jewish Services Not on file 02/04 Active Member of Clubs or Organizations Not on f ile 02/05/2024 Attends Club or Organization Meetings Not on jasiel e 02/05/2024 Marital Status Not on file 02/05/2024 PHQ-2 Answer Date Recorded PHQ-2 Score 3 12/22/2024 [facility] - Occupational Stress [...] in an abandoned building, in an overnight residential, or couch-surfing.) Yes 02/05/2024 Are you worried [...] on file 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 Gender Identity Not on file Sexual Orientation Not on file documented as of this encounter Miscellaneous Notes * Telephone Encounter - Lashae Jimenes - 12/29/2024 9:16 AM CST Medication Question or Refill Contacts Contact Date/Time Type Contact Phone/Fax 12/29/2024 09:16 AM CHASER APPRENTICE Phone (Incoming) Darrin Liu (Self) [phone] (M) What medication are you calling about (include dose and sig)?: oxycodone Preferred Pharmacy: [id number] AT [facility] [address] [place] [phone] Controlled Substance Agreement on file: CSA -- Patient Level: CSA: None found at the patient level. Who prescribed the medication?: PCP Do you need a refill? Yes When did you use the medication last? 12/27/24 Patient offered an appointment? Yes: no please refill meds Do you have any questions or concerns? No Okay to leave a detailed message?: Yes at Cell number on file: Telephone Information: ER APPRENTICE documented in this encounter Plan of Treatment Not on file documented as of this encounter Goals Goal Patient Goal Type Associated Problems Recent Progress Patient-Stated? Author Create an action plan to increase financial stability Care Plan Patient expresses financial resource strain 60%( 12:56 PM CHASER APPRENTICE) Tawanna Rand, [facility] Note: Barriers: fixed/limited income Strengths: family support Patient expressed understanding of goal: yes Action steps to achieve this goal: I will utilize [employer] (Completed) I will work with Financial Resource Worker regarding my outstanding medical bills and get assistance from [facility]. (Completed) I will work with financial resource worker on certain pops [place] application and [place] benefits (Pending) I will work with Financial Resource Worker to reinstate my [facility] benefits and transfer them to [facility] (01/09: In Progress - pt stated that they transferred and he recently filled out paperwork and sent it back into the [facility] and is waiting on a return call/update) I will continue to outreach to care coordination as needed for additional resources or supports. (Ongoing) documented as of this encounter Visit Diagnoses Diagnosis DDD (degenerative disc disease), lumbar Degeneration of lumbar or lumbosacral intervertebral disc documented in this encounter Additional Health Concerns Active Problems Noted Date Diagnosed Date Patient expresses financial resource strain 11/27 Assessment Noted Time PHQ-9 Depression Total Score: 9 12/22/19 25 10:48 AM CHASER APPRENTICE documented as of this encounter Care Teams Marine Service Manager Relationship Specialty Start Date End Date Jovany Salguero MD [address] [place] [address] PCP - General Internal Medicine 10/02/18 Jovany Salguero MD [address] [place] [address] Assigned PCP 09/05/20 Janki Ortiz PA-C [address] [place] [address] [address] [facility] [place] [address] Physician Account Manager Sales Representative Dermatology 09/29/21 Jovany Salguero MD [address] [place], [place] [address] Assigned Pain Medication Provider 07/14/23 [place] [address] [place], [place] [address] Nurse Practitioner Nurse Practitioner 02/14/24 Ashley Romero, [facility] Lead Rv Technician 05/09/24 [place] [address] [address] Assigned Musculoskeletal Provider 11/17/24 documented as of this encounter
--- OUTSIDE RECORDS SUMMARY | 2025-01-23 19:38 | XMS_ITS | Clinical Summary ---
Author Organization [place] Address [address] [facility] [place] [address] Care Team Providers Care Roofer Metal Name Role Phone Jovany Salguero MD Primary Care Provider [phone] Jovany Salguero MD Unavailable [phone] Janki OrtizC Unavailable [phone] Jovany Salguero MD Unavailable [phone] Yisel Soliman NP Unavailable [phone] Ashley Romero RIP SAWYER Unavailable [phone] Lewis Chiu DO Unavailable [phone] Allergies Active Allergy Reactions Criticality Noted Date Comments Scopolamine Other (See Comments) High 12/15/2011 delirium Medications ondansetron (ZOFRAN ODT) 4 MG ODT tabIndications:N ausea Take 1 tablet (4 mg) by mouth every 6 hours as needed for nausea 30 tablet 1 06/29/20 23 Active naloxone (NARCAN) 4 MG/0.1ML nasal sprayIndications :Cervicalgia,Mid line low back pain without sciatica, unspecified chronicity [place] 1 spray (4 mg) into one nostril alternating nostrils as needed for opioid reversal every 2-3 minutes until assistance arrives 0.2 mL 1 08/13/20 23 Active Additional Information Patient not taking.Reported on 12/22/2024 pantoprazole (PROTONIX) 40 MG EC tabletIndication s:Gastritis without bleeding, unspecified chronicity, unspecified gastritis type TAKE 1 TABLET(40 MG) BY MOUTH EVERY MORNING 90 tablet 2 01/28/20 24 Active lidocaine (LIDODERM) 5 % patchIndications :DDD (degenerative disc disease), lumbar Place 1 patch onto the skin every 24 hours To prevent lidocaine toxicity, patient should be patch free for 12 hrs daily. 30 patch 3 06/25/20 24 Active acetaminophen (TYLENOL) 325 MG tabletIndication s:Acute pancreatitis without infection or necrosis, unspecified pancreatitis type Take 2 tablets (650 mg) by mouth every 4 hours as needed for mild pain or other (and adjunct with moderate or severe pain or per patient request) 30 tablet 07/01/20 24 Active methocarbamol (ROBAXIN) 500 MG tabletIndication s:Neck pain,Midline low back pain without sciatica, unspecified chronicity Take 1 tablet (500 mg) by mouth 2 times daily. 60 tablet 08/20/20 24 Active tiZANidine (ZANAFLEX) 4 MG tabletIndication s:DDD (degenerative disc disease), lumbar Take 1 tablet (4 mg) by mouth 3 times daily. 21 tablet 11/28/19 25 Active traZODone (DESYREL) 50 MG tabletIndication s:Insomnia, unspecified type Take 1 tablet (50 mg) by mouth at bedtime. 30 tablet 12/22/19 25 Active oxyCODONE (ROXICODONE) 5 MG tabletIndication s:DDD (degenerative disc disease), lumbar Take 1 tablet (5 mg) by mouth 2 times daily as needed for severe pain. 30 tablet 12/29/19 25 Active oxyCODONE (ROXICODONE) 5 MG tabletIndication s:DDD (degenerative disc disease), lumbar Take 1 tablet (5 mg) by mouth 2 times daily as needed for severe pain. 30 tablet 11/28/19 25 025 Discontin ued(Reord er (No AVS)) Active Problems Problem Noted Date Diagnosed Date Hypoxia 06/29/2024 Acute pancreatitis without i nfection or necrosis, unspecified pancreatitis type 06/29/2024 History of Whipple procedure 06/29/2024 Moderate episode of recurrent major depressive d isorder 02/05/2024 Concussion with loss of consciousness, initial e ncounter 12/10/2023 Type 2 diabetes mellitus wit h other specified complication, without long-term current use of insulin 12/19/2019 Dehydration 09/28/2018 S/P cervical spinal fusion 09/26/2018 Nausea & vomiting 02/19/2018 Nausea 02/24/2017 N&V (nausea and vomiting) 10/08/2016 Alcohol dependence in remission 02/10/2016 SBO (small bowel obstruction) 12/05/2014 Encephalopathy 10/14/2014 DJD (degenerative joint disease) 08/27/2012 Chronic cervical pain 04/15/2012 Nicotine dependence 12/02/2011 Gastric stenosis 12/02/2011 Intractable vomiting 11/29/2011 CARDIOVASCULAR SCREENING; LDL GOAL LESS THAN 160 09/25/2010 ESOPHAGEAL REFLUX 08/27/2006 Anxiety state 06/01/2006 Overview (08/26/2015): Problem list name updated by automated process. Provider to review CERVICALGIA(aka NECK) 10/17/2004 Overview (10/17/2004): Herniated Disc Malignant neoplasm of other specified sites of p ancreas Overview (04/06/2009): See PSH Resolved Problems Problem Noted Date Diagnosed Date Resolved Date Lumbar radiculitis 02/08/2023 Right wrist pain 10/15/2022 10/15/2022 Thumb pain, left 03/27/2017 05/04/2017 Generalized osteoarthritis of hand 03/27/2017 05/04/2017 Aftercare following surgery of the musculoskeletal system 03/27/2017 05/04/2017 Marijuana smoker in remission 03/22/2017 02/05/2024 Major depressive disorder, r ecurrent episode, in partial remission 02/10/2016 02/20/2023 Acute narcotic withdrawal 10/17/2015 N&V (nausea and vomiting) 10/17/2015 Opiate withdrawal 10/15/2015 02/10/2016 Health Correction (HEALTHCARE) 07/03/2014 10/12/2016 Overview (07/03/2014): Status: Accepted Stereo Compiler: Concha Casey See Letters for [facility] Care Plan Date: July 03, 2014 Metabolic acidosis 06/25/2014 4 Vomiting 01/24/2014 07/07/2014 Acute abdominal pain 12/21/2013 015 Intractable nausea and vomiting 12/20/2013 07/07/2014 Advanced directives, counseling/discussion 07/04/2012 09/27/2018 Overview (07/04/2012): Discussed Advance Directive planning with patient; information given to patient to review. Health Correction 01/05/2012 07/02/2014 Overview (07/02/2014): Status: Accepted Stereo Compiler: Concha Casey See Letters for [facility] Care Plan Date: July 02, 2014 Personal history of pancreatic cancer 12/11/2011 07/07/2014 Alcoholism 12/02/2011 02/10/2016 Major depression 06/19/2011 02/10/2016 Dyspepsia and other specifie d disorders of function of stomach 10/17/2004 02/10/2016 Overview (10/17/2004): Status Post Billroth I Procedure 08/11/2004 Encounters Date Type Department Care Team Description 01/20/2025 Telephone [facility] [address] [place] [address] Jovany Salguero MD 01/17/2025 12:35 PM EGG TRAYER - 01/17/2025 11:59 PM EGG TRAYER Hospital Encounter [facility] [id number] [place] [phone] Jenni Robles CNP Chronic nonintractable headache, unspecified headache type; History of pancreatic cancer; Post-concussion headache Discharge Disposition: Home or Self Care 01/17/2025 Travel 01/08/2025 Telephone [facility] [address] [place] [phone] Jovany Salguero MD Results 12/29/2024 Refill [facility] [address] [place] [phone] Jovany Salguero MD Refill Request 12/22/2024 11:00 AM EGG TRAYER Office Visit [facility] [address] [place] [phone] Jneni Robles CNP Post-concussion headache (Primary Dx); Chronic nonintractable headache, unspecified headache type; Screening for colon cancer; History of pancreatic cancer; Insomnia, unspecified type 12/22/2024 Orders Only (auto-released) [facility] [address] [place] [phone] Jenni Robles CNP Screening for colon cancer 12/22/2024 Travel 11/27/2024 Refill [facility] [address] [place] [phone] Jovany Salguero MD 10/28/2024 Refill [facility] [address] [place] [phone] Jovany Salguero MD Refill Request from Last 3 Months Immunizations Name Administration Dates Next Due Influenza (IIV3) PF 09/27/2014 Influenza Vaccine >6 months,quad, PF 01/30/2014 Pneumo Conj 13-V (2010&after) 06/25/2018 Pneumococcal 23 valent 11/22/2021 TD,PF 7+ (Tenivac) 11/26/2003 TDAP (Adacel,Boostrix) 06/26/2014 Td (Adult), Adsorbed 11/05/1995 Family History Medical History Relation Comments Alcohol/Drug Father Cancer Maternal Grandmother Cancer Mother breast Gastrointestinal Disease Mother Relation Status Comments Father (Age 60) from [facility]. Maternal Grandmother (Age 76) from cancer. Mother (Age 66) from [facility]. Son 1 Alive Son 2 Alive Son 3 Alive Social History Tobacco Use Types Packs/Day Years [...] than three times a week 02/05/2024 Attends [employer] Services Not on file 02/04 Active Member of Clubs or Organizations Not on f ile 02/05/2024 Attends Club or Organization Meetings Not on jasiel e 02/05/2024 Marital Status Not on file 02/05/2024 PHQ-2 Answer Date Recorded PHQ-2 Score 3 12/22/2024 [facility] - Occupational [...] in an abandoned building, in an overnight chcf, or couch-surfing.) Yes 02/05/2024 Are you worried [...] on file Legal Sex Male 3:07 AM EGG TRAYER Gender Identity Not on file Sexual Orientation Not on file Last Filed Vital Signs Vital Sign Reading Time Taken Comments Blood Pressure 136/89 12/22/2024 11:01 AM EGG TRAYER Pulse 62 12/22/2024 11:01 AM EGG TRAYER Temperature 36.4 C (97.6 F) 12/22/2024 11:01 AM EGG TRAYER Respiratory Rate 16 12/22/2024 11:01 AM EGG TRAYER Oxygen Saturation 95% 12/22/2024 11:01 AM EGG TRAYER Inhaled Oxygen Concentration - - Weight 66.5 kg (146 lb 9.6 oz) 12/22/2024 11:01 AM EGG TRAYER Height 182.9 cm (6') 12/22/2024 11:01 AM EGG TRAYER Body Mass Index 19.88 12/22/2024 11:01 AM EGG TRAYER Plan of Treatment Health Maintenance Due Date Last Done Comments CT COLONOGRAPHY 1953 DIABETIC FOOT EXAM 1955 EYE EXAM 1955 FLEX SIG 1953 COLONOSCOPY 1963 ZOSTER IMMUNIZATION (1 of 2) 2003 LUNG CANCER SCREENING 06/25/2015 06/25/2014 FIT 08/30/2021 08/30/2020, 06/26, 09/13/2010, Additional history exists DTAP/TDAP/TD IMMUNIZATION (2 - Td or Tdap) 06/26/2024 06/26/2014, 11/26/2003, 11/05/1995 COVID-19 Vaccine (3 - season) 2024 08/03/2021, 07/10/2021 INFLUENZA VACCINE (#1) 2024 09/27/2014, 2013 URINE DRUG SCREEN 08/13/2024 08/13/2023 A1C 09/29/2024 06/29/2024, 01/24, 08/13/2023, Additional history exists ANNUAL REVIEW OF HM ORDERS 11/13/2024 11/13/2023, MEDICARE ANNUAL WELLNESS VISIT 02/04/2025 02/05/2024, 11/22/2021, 08/25/2020, Additional history exists MICROALBUMIN 02/04/2025 02/05/2024, 01/25, 11/22/2021 PHQ-9 06/21/2025 12/22/2024, 08/0 07/2024, 02/05/2024, Additional history exists LIPID 06/29/2025 06/29/2024, 01/24, 02/20/2023, Additional history exists BMP 07/01/2025 07/01/2024, 08/0 03/2024, 06/29/2024, Additional history exists NICOTINE/TOBACCO CESSATION COUNSELING Q 1 YR 12/22/2025 12/22/2024, 12/05/2023, 01/08/2023, Additional history exists FALL RISK ASSESSMENT 12/24/2025 12/24/2024, 08/20/2024, 08/13/2023, Additional history exists COLORECTAL CANCER SCREENING 01/02/2028 sDNA (Cologuard) 01/02/2028 01/02/2025, 05/2025, 12/06/2021, Additional history exists RSV VACCINE (1 - 1-dose 75+ series) 2028 ADVANCE CARE PLANNING 02/04/2029 02/05/2024 , 11/22/2021, 08/25/2020, Additional history exists DEPRESSION ACTION PLAN Completed 04/26/2016, 2011 HEPATITIS C SCREENING Completed 11/22/2021 Pneumococcal Vaccine: 50+ Years Completed 11/22/2021, 06/25/2018 AORTIC ANEURYSM SCREENING (SYSTEM ASSIGNED) Completed 06/29/2024, 02/19/2018, 03/10/2017, Additional history exists HPV IMMUNIZATION Aged Out No longer e ligible based on patient's age to complete this topic MENINGITIS IMMUNIZATION Aged Out No l onger eligible based on patient's age to complete this topic Goals Goal Patient Goal Type Associated Problems Recent Progress Patient-Stated? Author Create an action plan to increase financial stability Care Plan Patient expresses financial resource strain 60%( 12:56 PM EGG TRAYER) Tawanna Rand LICSW Note: Barriers: fixed/limited income Strengths: family support Patient expressed understanding of goal: yes Action steps to achieve this goal: I will utilize [employer] (Completed) I will work with Financial Resource Worker regarding my outstanding medical bills and get assistance from [employer] [facility]. (Completed) I will work with financial resource worker on certain pops [place] application and S[place] benefits (Pending) I will work with Financial Resource Worker to reinstate my [facility] benefits and transfer them to [facility] (01/09: In Progress - pt stated that they transferred and he recently filled out paperwork and [facility] it [facility] and is waiting on a return call/update) I will continue to outreach to care coordination as needed for additional resources or supports. (Ongoing) Establish Stable Housing Care Plan SDOH LACK OF STABLE HOUSING No Ashley Romero LICSW Note: Barriers: Lives with family, suspects that he will need to move, low income and financial concerns Strengths: Engaged and motivated Patient expressed understanding of goal: Yes Action steps to achieve this goal: 1. I will review housing resources sent to me by career center director and reach out to those I'm most interested in (11/08: New) 2. I will contact career center director if questions about the resources sent or needing help to initiate contact with those I'm interested in (11/08: New) 3. I will contact career center director if needing additional resources and information (11/08: New) Improve management of mental health symptoms and establish with mental health/psychosocia l supports Care Plan Mental Health Symptoms Need Improvement No Ashley Romero LICSW Note: Barriers: Limited support, emotionally overwhelmed, anticipate need to put dog down and sad Strengths: Open to considering assistance and engaged Patient expressed understanding of goal: Yes Action steps to achieve this goal: 1. I will consider scheduling a follow-up apt with my PCP to discuss medication management for my mental annemarie (01/09: New) 2. I will review mental health resources sent by career center director and consider establishing with a mental health provider (01/09: New) 3. I will contact the career center director if needing assistance with scheduling/coordinating(01/09: New) 4. I will check with my insurance to verify my insurance benefits/coverage (01/09: New) 5. I will contact the career center director if and when needing additional resources and support Medical Devices Implanted Type Area Septic Tank Installer Device Identifier Shelf Expiration Date Model / Serial / Lot Graft Bone Putty Dbx ml [id number] Implanted:Qt y: 1 on 09/26/2018 by Jatin Pugh MD at [facility] Bone/Tissue /Biologic N/A: Spine Cervical [employer] 05/13/2020 [id number] / [id number] / Graft Bone Putty Dbx ml [id number] Implanted:Qt y: 1 on 09/26/2018 by Jatin Pugh MD at [facility] Bone/Tissue /Biologic N/A: Spine Cervical MUSC[employer]KELETAL WELCH 05/13/2020 [id number] / [id number] / Spacer, 8mm X 14mm X 11mm Implanted:Qt y: 1 on 09/26/2018 by Jatin Pugh MD at [facility] Metallic Hardware/An chor N/A: Spine Cervical 05/21/2026 [id number] / / [id number] Spacer, 7mm X 14mm X 11mm Implanted:Qt y: 1 on 09/26/2018 by Jatin Pugh MD at [facility] Metallic Hardware/An chor N/A: Spine Cervical 07/09/2026 [id number] / / FV Spacer, 7mm X 14mm X 11mm Implanted:Qt y: 1 on 09/26/2018 by Jatin Pugh MD at [facility] Metallic Hardware/An chor N/A: Spine Cervical 07/09/2026 [id number] / / 30FV 15mm Screw Implanted:Qt y: 8 on 09/26/2018 by Jatin Pugh MD at [facility] Metallic Hardware/An chor N/A: Spine Cervical [id number] / / LOAD 800, 2017 61mm Zero Plate Implanted:Qt y: 1 on 09/26/2018 by Jatin Pugh MD at [facility] Metallic Hardware/An chor N/A: Spine Cervical [employer] [id number] / / LOAD 8003, 2017 Procedures Procedure Name Priority Date/Time Associated Diagnosis Comments MR BRAIN W/O & W CONTRAST Routine 01/17/2025 2:40 PM EGG TRAYER Chronic nonintractable headache, unspecified headache type History of pancreatic cancer Post-concussion headache COLOGUARD([employer]) Routine 01/02/2025 9:00 AM EGG TRAYER Screening for colon cancer BASIC METABOLIC PANEL Routine 07/01/2024 5:57 AM CDT LIPID REFLEX TO DIRECT LDL PANEL Add-On 06/29/2024 7:[address] ABDOMEN PELVIS W CONTRAST STAT 06/29/2024 6:14 AM CDT HEMOGLOBIN A1C Add-On 06/29/2024 5:33 AM CDT ALBUMIN RANDOM URINE QUANTITATIVE Routine 02/05/2024 11:52 AM CDT Type 2 diabetes mellitus without complication, without long-term current use of insulin (H) DRUG CONFIRMATION PANEL URINE WITH CREAT Routine 08/13/2023 4:19 PM CDT Marijuana smoker in remission (H) HEPATITIS C ANTIBODY Routine 11/22/2021 11:24 AM EGG TRAYER Encounter for preventative adult health care examination FECAL COLORECTAL CANCER SCREEN FIT Routine 08/30/2020 6:13 PM CDT Encounter for screening for malignant neoplasm of colon Encounter for preventative adult health care examination CT CHEST/ABDOMEN/PELVIS W CONTRAST STAT 06/25/2014 1:12 PM CDT from Last 3 Months or Most Recently Relevant to Health Maintenance Results * MR Brain w/o & w Contrast (01/17/2025 2:40 PM EGG TRAYER) Anatomical Region Laterality Modality Head, SUBRAD MR NEURO, UMP MR NEURO, RAD MR Magnetic Resonance 01/17/2025 2:40 PM EGG TRAYER Impressions 01/19/2025 8:47 AM EGG TRAYER IMPRESSION: 1. No acute intracranial process. 2. Generalized brain atrophy and presumed microvascular ischemic changes as detailed above. Narrative 01/19/2025 8:47 AM EGG TRAYER EXAM: MR BRAIN W/O and W CONTRAST LOCATION: [facility] DATE: 01/17/2025 INDICATION: Chronic nonintractable headache, unspecified headache type, Chronic nonintractable headache, unspecified headache type, History of pancreatic cancer, Post- concussion headache COMPARISON: Noncontrast head CT 12/15/2023. MRI brain 09/14/2018. CONTRAST: 7 ml gadavist TECHNIQUE: Routine multiplanar multisequence head MRI without and with intravenous contrast. FINDINGS: INTRACRANIAL CONTENTS: No acute or subacute infarct. No mass, acute hemorrhage, or extra-axial fluid collections. Scattered nonspecific T2/FLAIR hyperintensities within the cerebral white matter most consistent with mild chronic microvascular ischemic change. Mild generalized cerebral atrophy. No hydrocephalus. Normal position of the cerebellar tonsils. No pathologic contrast enhancement. SELLA: No abnormality accounting for technique. OSSEOUS STRUCTURES/SOFT TISSUES: Normal marrow signal. The major intracranial vascular flow voids are maintained. ORBITS: No abnormality accounting for technique. SINUSES/MASTOIDS: Mild mucosal thickening scattered about the paranasal sinuses. No middle ear or mastoid effusion. Procedure Note Leo Tyler MD - 01/19/2025 EXAM: MR BRAIN W/O and W CONTRAST LOCATION: [facility] DATE: 01/17/2025 INDICATION: Chronic nonintractable headache, unspecified headache type,Chronic nonintractable headache, unspecified headache type, History ofpancreatic cancer, Post-concussion headache COMPARISON: Noncontrast head CT 12/15/2023. MRI brain 09/14/2018. CONTRAST: 7 ml gadavist TECHNIQUE: Routine multiplanar multisequence head MRI without and withintravenous contrast. FINDINGS: INTRACRANIAL CONTENTS: No acute or subacute infarct. No mass, acutehemorrhage, or extra-axial fluid collections. Scattered nonspecificT2/FLAIR hyperintensities within the cerebral white matter most consistentwith mild chronic microvascular ischemic change. Mild generalized cerebral atrophy. No hydrocephalus. Normalposition of the cerebellar tonsils. No pathologic contrast enhancement. SELLA: No abnormality accounting for technique. OSSEOUS STRUCTURES/SOFT TISSUES: Normal marrow signal. The majorintracranial vascular flow voids are maintained. ORBITS: No abnormality accounting for technique. SINUSES/MASTOIDS: Mild mucosal thickening scattered about the paranasalsinuses. No middle ear or mastoid effusion. IMPRESSION: 1. No acute intracranial process. 2. Generalized brain atrophy and presumed microvascular ischemic changesas detailed above. Jenni Robles [facility] MRI ORDERABLES Final Resul t * COLOGUARD(Biocycle) (01/02/2025 9:00 AM EGG TRAYER) COLOGUARD-ABSTRACT Negative Negative 2024 2:59 AM EGG TRAYER [employer] (CLIA #:[id number]) Comment: NEGATIVE TEST RESULT. A negative Cologuard result indicates a low likelihood that a colorectal cancer (CRC) or advanced adenoma (adenomatous polyps with more advanced pre-malignant features) is present. The chance that a person with a negative Cologuard test has a colorectal cancer is less than 1 in 1500 (negative predictive value >99.9%) or has an advanced adenoma is less than 5.3% (negative predictive value 94.7%). These data are based on a prospective cross-sectional study of 10,000 individuals at average risk for colorectal cancer who were screened with both Cologuard and colonoscopy. (Gino Tobar al, N Engl J Med 2014;370(14):6398-6494) The normal value (reference range) for this assay is negative. COLOGUARD RE-SCREENING RECOMMENDATION: Periodic colorectal cancer screening is an important part of preventive healthcare for asymptomatic individuals at average risk for colorectal cancer. Following a negative Cologuard result, the [place] [employer] Society and U.S. Multi-Society Task Force screening guidelines recommend a Cologuard re-screening interval of 3 years. References: [place] [employer] Guideline for Colorectal Cancer Screening: https://www.cancer.org/cancer/etozt-zyimsa-dvudae/ozvhyjjsr-kalbndeda-uyhhjoc/ac s-rec ommendations.html.; Giovanni DK, Rosina CR, Kiko MelloK, Colorectal Cancer Screening: Recommendations for Physicians and Patients from the U.S. Multi-Society Task Force on Colorectal Cancer Screening , Am J Gastroenterology 2017; 112:5288-1954. TEST DESCRIPTION: Composite algorithmic analysis of stool DNA-biomarkers with hemoglobin immunoassay. Quantitative values of individual biomarkers are not reportable and are not associated with individual biomarker result reference ranges. Cologuard is intended for colorectal cancer screening of adults of either sex, 45 years or older, who are at average-risk for colorectal cancer (CRC). Cologuard has been approved for use by the U.S. FDA. The performance of Cologuard was established in a cross sectional study of average-risk adults aged 50-84. Cologuard performance in patients ages 45 to 49 years was estimated by sub-group analysis of near-age groups. Colonoscopies performed for a positive result may find as the most clinically significant lesion: colorectal cancer [4.0%], advanced adenoma (including sessile serrated polyps greater than or equal to 1cm diameter) [20%] or non- advanced adenoma [31%]; or no colorectal neoplasia [45%]. These estimates are derived from a prospective cross-sectional screening study of 10,000 individuals at average risk for colorectal cancer who were screened with both Cologuard and colonoscopy. (Gino Tobar al, N Engl J Med 2014;370(14):5598-0258.) Cologuard may produce a false negative or false positive result (no colorectal cancer or precancerous polyp present at colonoscopy follow up). A negative Cologuard test result does not guarantee the absence of CRC or advanced adenoma (pre-cancer). The current Cologuard screening interval is every 3 years. ([place] [employer] Society and U.S. Multi-Society Task Force). Cologuard performance data in a 10,000 patient pivotal study using colonoscopy as the reference method can be accessed at the following location: www.[place].Nuvyyo/results. Additional description of the Cologuard test process, warnings and precautions can be found at www.colFonrd.com. Stool specimen (specimen) 01/02/2025 9:00 AM EGG TRAYER 01/03/2025 1:26 PM EGG TRAYER Jenni Robles [facility] Final Result [employer] [address] [phone], [facility] [phone] [employer] (CLIA #:[id number]) [address] [id number] * (ABNORMAL) Basic metabolic panel (07/01/2024 5:57 AM CDT) Sodium 137 135 - 145 mmol/L 07/01/2024 6:50 AM CDT [facility] Potassium 4.3 3.4 - 5.3 mmol/L 07/01/2024 6:50 AM CDT [facility] Chloride 103 98 - 107 mmol/L 07/01/2024 6:50 AM CDT [facility] Carbon Dioxide (CO2) 26 22 - 29 mmol/L 07/01/2024 6:50 AM CDT [facility] Anion Gap 8 7 - 15 mmol/L 07/01/2024 6:50 AM CDT [facility] Urea Nitrogen 4.7(L) 8.0 - 23.0 mg/dL 07/01/2024 6:50 AM CDT [facility] Creatinine 0.87 0.67 - 1.17 mg/dL 07/01/2024 6:50 AM CDT [facility] GFR Estimate >90 >60 mL/min/1.7 3m2 07/01/2024 6:50 AM CDT [facility] Comment:eGFR calculated usin 2020 CKD-EPI equation. Calcium 8.5(L) 8.8 - 10.4 mg/dL 07/01/2024 6:50 AM CDT [facility] Comment:Reference intervals for this test were updated on 06/10/2024 to reflect our healthy population more accurately. There may be differences in the flagging of prior results with similar values performed with this method. Those prior results can be interpreted in the context of the updated reference intervals. Glucose 99 70 - 99 mg/dL 07/01/2024 6:50 AM CDT [facility] Blood BLOOD SPECIMEN / Unknown Venipuncture / Unknown 07/01/2024 5:57 AM CDT 07/01/2024 6:23 AM CDT Derrek Pérez DO LAB - BLOOD ORDERABLES Final R esult LABORATORY [facility] [address] Lab (1st floor, no room number) [place] [address], [facility] * Lipid panel reflex to direct LDL (06/29/2024 7:57 AM CDT) Cholesterol 123 <200 mg/dL 06/29/2024 6:04 PM CDT [facility] Triglycerides 76 <150 mg/dL 06/29/2024 6:04 PM CDT [facility] Direct Measure HDL 56 >=40 mg/dL 2023 6:04 PM CDT [facility] LDL Cholesterol Calculated 52 <=100 mg/dL 06/29/2024 6:04 PM CDT [facility] Non HDL Cholesterol 67 <130 mg/dL 06/29/2024 6:04 PM CDT [facility] Blood STRUCTURE OF LEFT HAND / Unknown Venipuncture / Unknown 06/29/2024 7:57 AM CDT 06/29/2024 8:09 AM CDT Narrative [facility] - 06/29/2024 6:04 PM CDT Cholesterol Desirable: <200 mg/dL Triglycerides Normal: Less than 150 mg/dL Borderline High: 150-199 mg/dL High: 200-499 mg/dL Very High: Greater than or equal to 500 mg/dL Direct Measure HDL Female: Greater than or equal to 50 mg/dL Male: Greater than or equal to 40 mg/dL LDL Cholesterol Desirable: <100mg/dL Above Desirable: 100-129 mg/dL Borderline High: 130-159 mg/dL High: 160-189 mg/dL Very High: >= 190 mg/dL Non HDL Cholesterol Desirable: 130 mg/dL Above Desirable: 130-159 mg/dL Borderline High: 160-189 mg/dL High: 190-219 mg/dL Very High: Greater than or equal to 220 mg/dL us Denise Romero PA-C LAB - BLOOD ORDERABLES F inal Result U LABORATORY [facility] [place] [facility] [address] [facility] [address] [facility], [address] [place] [address] * CT Abdomen Pelvis w Contrast (06/29/2024 6:14 AM CDT) Anatomical Region Laterality Modality Abdomen/Pelvis, SUBRAD CT KARLA DY, UMP CT ABDOMEN PELVIS, RAD CT Computed Tomography 06/29/2024 6:14 AM CDT Impressions 06/29/2024 6:49 AM CDT IMPRESSION: 1. Moderate acute pancreatitis with moderate peripancreatic fluid and inflammatory change. No pseudocysts. 2. Cholecystectomy. Pneumobilia. Clinical correlation for prior sphincterotomy. 3. Moderate elevation left hemidiaphragm with left basilar atelectasis. 4. No bowel obstruction. Appendix within normal limits. Narrative 06/29/2024 6:49 AM CDT EXAM: CT ABDOMEN PELVIS W CONTRAST LOCATION: [facility] DATE: 06/29/2024 INDICATION: LLQ pain and tenderness, somewhat rigid abdomen, h o whipple COMPARISON: None. TECHNIQUE: CT scan of the abdomen and pelvis was performed following injection of IV contrast. Multiplanar reformats were obtained. Dose reduction techniques were used. CONTRAST: 90 cc Isovue-370 FINDINGS: LOWER CHEST: Moderate elevation left hemidiaphragm with left basilar atelectasis. HEPATOBILIARY: Pneumobilia. Clinical correlation for prior sphincterotomy Gallbladder is surgically absent. No significant mass or bile duct dilatation. PANCREAS: Moderate acute pancreatitis with moderate peripancreatic fluid and inflammatory change epicentered in the mid and distal pancreas. No pseudocysts. Fluid extends into the left upper quadrant and left paracolic gutter Nothing for pancreatic necrosis. SPLEEN: Normal size. Scattered splenic calcified granulomas. ADRENAL GLANDS: Normal. KIDNEYS/BLADDER: No evidence for pyelonephritis No significant mass, stones, or hydronephrosis. There are simple or benign cysts. No follow up is needed. BOWEL: Nonspecific nonobstructive bowel gas pattern. Appendix within normal limits LYMPH NODES: Normal. VASCULATURE: No abdominal aortic aneurysm. Moderate vascular calcifications abdominal aorta and common iliac arteries. PELVIC ORGANS: No pelvic free fluid. MUSCULOSKELETAL: Moderate spondylosis. L2-L3 and T11-T12 degenerative disc disease. Multiple additional areas of moderate to marked narrowing of interspaces. No ventral or inguinal hernias. Procedure Note Rohan Waite MD - 06/29/2024 EXAM: CT ABDOMEN PELVIS W CONTRAST LOCATION: [facility] DATE: 06/29/2024 INDICATION: LLQ pain and tenderness, somewhat rigid abdomen, h o whipple COMPARISON: None. TECHNIQUE: CT scan of the abdomen and pelvis was performed followinginjection of IV contrast. Multiplanar reformats were obtained. Dosereduction techniques were used. CONTRAST: 90 cc Isovue-370 FINDINGS: LOWER CHEST: Moderate elevation left hemidiaphragm with left basilaratelectasis. HEPATOBILIARY: Pneumobilia. Clinical correlation for prior sphincterotomyGallbladder is surgically absent. No significant mass or bile ductdilatation. PANCREAS: Moderate acute pancreatitis with moderate peripancreatic fluidand inflammatory change epicentered in the mid and distal pancreas. Nopseudocysts. Fluid extends into the left upper quadrant and left paracolicgutter Nothing for pancreatic necrosis. SPLEEN: Normal size. Scattered splenic calcified granulomas. ADRENAL GLANDS: Normal. KIDNEYS/BLADDER: No evidence for pyelonephritis No significant mass,stones, or hydronephrosis. There are simple or benign cysts. No follow upis needed. BOWEL: Nonspecific nonobstructive bowel gas pattern. Appendix withinnormal limits LYMPH NODES: Normal. VASCULATURE: No abdominal aortic aneurysm. Moderate vascularcalcifications abdominal aorta and common iliac arteries. PELVIC ORGANS: No pelvic free fluid. MUSCULOSKELETAL: Moderate spondylosis. L2-L3 and T11-T12 degenerative discdisease. Multiple additional areas of moderate to marked narrowing ofinterspaces. No ventral or inguinal hernias. IMPRESSION: 1. Moderate acute pancreatitis with moderate peripancreatic fluid andinflammatory change. No pseudocysts. 2. Cholecystectomy. Pneumobilia. Clinical correlation for priorsphincterotomy. 3. Moderate elevation left hemidiaphragm with left basilar atelectasis. 4. No bowel obstruction. Appendix within normal limits. Christina Munoz MD IMG CT ORDERABLES Final Result * (ABNORMAL) Hemoglobin A1c (06/29/2024 5:33 AM CDT) Hemoglobin A1C 6.0(H) <5.7 % 06/29/2024 4:02 PM CDT LABORATORY Comment: Normal <5.7% Prediabetes 5.7-6.4% Diabetes 6.5% or higher Note: Adopted from ADA consensus guidelines. Blood BLOOD SPECIMEN / Unknown Venipuncture / Unknown 06/29/2024 5:33 AM CDT 06/29/2024 5:37 AM CDT Denise Romero PA-C LAB - BLOOD ORDERABLES F inal Result LABORATORY [facility] [address] [facility] Lab (1st floor, no room number) [place] [address] * Albumin Random Urine Quantitative with Creat Ratio (02/05/2024 11:52 AM CDT) Creatinine Urine mg/dL 156.0 mg/dL 02/07/2024 1:16 AM CDT [facility] Comment:The reference ranges have not been established in urine creatinine. The results should be integrated into the clinical context for interpretation. Albumin Urine mg/L <12.0 mg/L 2023 1:16 AM CDT [facility] Comment:The reference ranges have not been established in urine albumin. The results should be integrated into the clinical context for interpretation. Albumin Urine mg/g Cr 02/07/2024 1:16 AM CDT [facility] Comment: Unable to calculate, urine albumin and/or urine creatinine is outside detectable limits. Microalbuminuria is defined as an albumin:creatinine ratio of 17 to 299 for males and 25 to 299 for females. A ratio of albumin:creatinine of 300 or higher is indicative of overt proteinuria. Due to biologic variability, positive results should be confirmed by a second, first-morning random or 24-hour timed urine specimen. If there is discrepancy, a third specimen is recommended. When 2 out of 3 results are in the microalbuminuria range, this is evidence for incipient nephropathy and warrants increased efforts at glucose control, blood pressure control, and institution of therapy with an lmeyrtoihin-gwgsppqpxs-etcjxy (ERASMO) inhibitor (if the patient can tolerate it). Urine MID-STREAM URINE SPECIMEN / Unknown Non-blood Collection / Unknown 02/05/2024 11:52 AM CDT 02/06/2024 7:33 AM CDT Jovany Salguero MD LAB - URINE ORDERABLES Aranza l Result [facility] [place] [facility] [address] [facility], [address] [place] [address] * Hepatitis C antibody (11/22/2021 11:24 AM EGG TRAYER) Hepatitis C Antibody Nonreactive Nonreactive 11/23/2021 11:41 AM EGG TRAYER SPECIALTY CORE/PROT/EN DO Blood BLOOD SPECIMEN / Unknown Venipuncture / Unknown 11/22/2021 11:24 AM EGG TRAYER 11/22/2021 11:26 AM EGG TRAYER Narrative SPECIALTY CORE/PROT/ENDO - 11/23/2021 11:41 AM EGG TRAYER Assay performance characteristics have not been established for newborns, infants, and children. Jovany Salguero MD LAB - BLOOD ORDERABLES Aranza l Result SPECIALTY CORE/PROT/ENDO [facility] Lab [address] [facility], [address] [place] [address], [facility] [phone] * Fecal colorectal cancer screen (FIT) (08/30/2020 6:13 PM CDT) Occult Blood Scn FIT Negative NEG^Negati ve 09/01/2020 7:13 PM CDT [facility] Stool specimen (specimen) 08/30/2020 6:13 PM CDT 09/01/2020 6:19 PM CDT us Jovany Salguero MD LAB - STOOLS ORDERABLES Fin al Result [address] [address] * CT Chest/Abdomen/Pelvis w Contrast (06/25/2014 1:12 PM CDT) Anatomical Region Laterality Modality Abdomen/Pelvis, Chest, SUBRA D CT BODY, UMP CT CHEST, UMP CT ABDOMEN PELVIS Computed Tomography Impressions 06/25/2014 2:01 PM CDT IMPRESSION: 1. No acute abnormality. 2. Stable postoperative changes of Whipple procedure. 3. Stable appearance of the liver. 4. Prominent mesenteric lymph nodes of uncertain significance are stable or decreased in size in the interval. SHAWNA SOMMERS MD Narrative 06/25/2014 2:[address] CHEST/ABDOMEN/PELVIS WITH CONTRAST 06/25/2014 1:12 PM HISTORY: Dyspnea, abdomen pain, vomiting. TECHNIQUE: CT chest, abdomen and pelvis with intravenous contrast. 69mL Isovue-370 COMPARISON: 12/19/2013. FINDINGS: Chest: There is mild emphysematous disease in the upper lungs. Minimal dependent atelectasis. The lungs are otherwise clear. No pulmonary nodule or pulmonary infiltrate. There is no mediastinal, hilar or axillary lymph node enlargement. There is a 2 cm left thyroid nodule. No pleural effusion. Abdomen: There are postoperative changes of Whipple procedure. There is biliary air in the liver. There is again a subtle low-attenuation lesion in the right lobe of the liver as well as probable additional subtle subcapsular lesions. These are not convincingly changed. The spleen and liver contain calcified granulomas. The adrenal glands are normal in appearance. There are small renal cortical cysts bilaterally. The pancreas body and tail are within normal limits. The gallbladder is absent. There are multiple subcentimeter mesenteric lymph nodes which are stable or slightly decreased in size in the interval. No other lymph node abnormalities. Pelvis: Bowel appears normal without obstruction or inflammation. The appendix normal. There is no free intraperitoneal gas or fluid. There is degenerative disease in the spine. Procedure Note Shawna Sommers MD - 06/25/2014 CT CHEST/ABDOMEN/PELVIS WITH CONTRAST 06/25/2014 1:12 PM HISTORY: Dyspnea, abdomen pain, vomiting. TECHNIQUE: CT chest, abdomen and pelvis with intravenous contrast. 69mL Isovue-370 COMPARISON: 12/19/2013. FINDINGS: Chest: There is mild emphysematous disease in the upper lungs. Minimal dependent atelectasis. The lungs are otherwise clear. No pulmonary nodule or pulmonary infiltrate. There is no mediastinal, hilar or axillary lymph node enlargement. There is a 2 cm left thyroid nodule. No pleural effusion. Abdomen: There are postoperative changes of Whipple procedure. There is biliary air in the liver. There is again a subtle low-attenuation lesion in the right lobe of the liver as well as probable additional subtle subcapsular lesions. These are not convincingly changed. The spleen and liver contain calcified granulomas. The adrenal glands are normal in appearance. There are small renal cortical cysts bilaterally. The pancreas body and tail are within normal limits. The gallbladder is absent. There are multiple subcentimeter mesenteric lymph nodes which are stable or slightly decreased in size in the interval. No other lymph node abnormalities. Pelvis: Bowel appears normal without obstruction or inflammation. The appendix normal. There is no free intraperitoneal gas or fluid. There is degenerative disease in the spine. IMPRESSION IMPRESSION: 1. No acute abnormality. 2. Stable postoperative changes of Whipple procedure. 3. Stable appearance of the liver. 4. Prominent mesenteric lymph nodes of uncertain significance are stable or decreased in size in the interval. SHAWNA SOMMERS MD Mina Mcbride MD IMG CT ORDERABLES Final Result from Last 3 Months or Most Recently Relevant to Health Maintenance Additional Health Concerns Active Problems Noted Date Diagnosed Date Patient expresses financial resource strain 11/27 SDOH LACK OF STABLE HOUSING 01/09/2025 Mental Health Symptoms Need Improvement 01/09/20 [id number] [place] [id number] [place] [id number] MED[place] [id number] [place] [facility] Advance Directives For more information, please contact: [phone] * Full Code (Latest Code Status on File) Date Activated Date Inactivated Comments 06/29/2024 3:51 PM 07/01/2024 5:36 PM All basic and advanced life-sustaining interventions are performed as appropriate Question Answer Comments Code status determined by: Discussion with patie nt/ legal decision maker * Full Code Date Activated Date Inactivated Comments 10/02/2018 1:10 PM 06/22/2021 12:42 PM Question Answer Comments Code status determined by: Discussion with patie nt/legal decision maker * Full Code Date Activated Date Inactivated Comments 09/28/2018 2:37 PM 10/02/2018 1:10 PM Question Answer Comments Code status determined by: Discussion with patie nt/legal decision maker * Full Code Date Activated Date Inactivated Comments 09/27/2018 8:56 AM 09/28/2018 2:37 PM Question Answer Comments Code status determined by: Discussion with patie nt/legal decision maker * Full Code Date Activated Date Inactivated Comments 09/26/2018 2:15 PM 09/27/2018 8:56 AM Question Answer Comments Code status determined by: Other (please deja t) Care Teams Roofer Metal Relationship Specialty Start Date End Date Jovany Salguero MD [address] [place] [address] PCP - General Internal Medicine 10/02/18 Jovany Salguero MD [address] [place] [address] Assigned PCP 09/05/20 Janki Ortiz PA-C [address] [place] [address] [address] Physician Warp Knitter Dermatology 09/29/21 Jovany Salguero MD [address] [place] [address] Assigned Pain Medication Provider 07/14/23 [place] [address] [place] [address] Nurse Practitioner Nurse Practitioner 02/14/24 Ashley Romero, [facility] Lead Stereo Compiler 05/09/24 [place] [address] [place] [address] [place] [address] Assigned Musculoskeletal Provider 11/17/24
--- OUTSIDE RECORDS SUMMARY | 2025-01-23 19:38 | XMS_ITS ---
Author Organization [place] Address [address] [facility] [place] [address] Care Team Providers Care Bobbin Coil Winder Name Role Phone Jovany Salguero MD Primary Care Provider [phone] Jovany Salguero MD Unavailable Janki Ortiz-C Unavailable Jovany Salguero MD Unavailable [phone] Yisel Soliman NP Unavailable [phone] Ashley Romero GOLF COURSE ASSISTANT Unavailable [phone] Lewis Chiu DO Unavailable [phone] Active Problems Problem Noted Date Diagnosed Date [...] sites of p ancreas Overview (04/06/2009): See [facility] Current Oncology Plans No current plan information found. Past Plans No past plan information found. Radiation Treatments * No radiation treatments are documented for this patient in [facility]. Treatments may have been administered in another system. Lifetime Dose Tracking * Chemical Lifetime Dose Automatic Entry Manual Entr y Total Air Kerma 1.57 mGy 1.57 mGy 0 mGy Fluoro Time 0.3 Minutes 0.3 Minutes 0 Minutes Resolved Problems Problem Noted Date Diagnosed Date [...] vomiting) 10/17/2015 Opiate withdrawal 10/15/2015 02/10/2016 Health Residential (HEALTHCARE) 07/03/2014 10/12/2016 Overview (07/03/2014): Status: Accepted Fish Stringer Assembler: Concha Casey See Letters for [facility] Care Plan Date: July 03, 2014 Metabolic acidosis 06/25/2014 4 Vomiting 01/24/2014 07/07/2014 Acute abdominal pain 12/21/2013 015 Intractable nausea and vomiting 12/20/2013 07/07/2014 Advanced directives, counseling/discussion 07/04/2012 09/27/2018 Overview (07/04/2012): Discussed Advance Directive planning with patient; information given to patient to review. Health Residential 01/05/2012 07/02/2014 Overview (07/02/2014): Status: Accepted Fish Stringer Assembler: Concha Casey See Letters for [facility] Care Plan Date: July 02, 2014 Personal history of pancreatic cancer 12/11/2011 07/07/2014 Alcoholism 12/02/2011 02/10/2016 Major depression 06/19/2011 02/10/2016 Dyspepsia and other specifie d disorders of function of stomach 10/17/2004 02/10/2016 Overview (10/17/2004): Status Post Billroth I Procedure 08/11/2004
--- OUTSIDE RECORDS SUMMARY | 2025-01-23 19:38 | XMS_ITS | Encounter Summary ---
Author Organization [place] Address [address] [facility] [address] Care Team Providers Care Heddler Tier Name Role Phone Jovany Salguero MD Primary Care Provider [phone] Jovany Salguero MD Unavailable [phone] Janki OrtizC Unavailable [phone] Jovany Salguero MD Unavailable [phone] Yisel Soliman NP Unavailable [phone] Ashley Romero CO SUPER[employer]OR [employer] Unavailable [phone] Lewis Chiu DO Unavailable [phone] Encounter Details Date Type Department Care Team (Latest Contact Info) Description 01/17/2025 Travel Social History Tobacco Use Types Packs/Day Years [...] than three times a week 02/05/2024 Attends Taoism Services Not on file 02/04 Active Member of Clubs or Organizations Not on f ile 02/05/2024 Attends Club or Organization Meetings Not on jasiel e 02/05/2024 Marital Status Not on file 02/05/2024 PHQ-2 Answer Date Recorded PHQ-2 Score 3 12/22/2024 [facility]ational Stress Questionnaire Answer Date [...] in an abandoned building, in an overnight detention, or couch-surfing.) Yes 02/05/2024 Are you worried [...] on file Legal Sex Male 3:07 AM DELIVERY ARCHITECT Gender Identity Not on file Sexual Orientation Not on file documented as of this encounter Plan of Treatment Not on file documented as of this encounter Goals Goal Patient Goal Type Associated Problems Recent Progress Patient-Stated? Author Create an action plan to increase financial stability Care Plan Patient expresses financial resource strain 60%( 12:56 PM DELIVERY ARCHITECT) No Tawanna Davis, [facility] Note: Barriers: fixed/limited income Strengths: family support Patient expressed understanding of goal: yes Action steps to achieve this goal: I will utilize [employer] (Completed) I will work with Financial Resource Worker regarding my outstanding medical bills and get assistance from [facility]. (Completed) I will work with financial resource worker on certain pops [place] application and [place] benefits (Pending) I will work with Financial Resource Worker to reinstate [place] benefits and transfer them to [place] to [facility] (01/09: In Progress - pt stated that they transferred and he recently filled out paperwork and sent it back into the [facility] and is waiting on a return call/update) I will continue to outreach to care coordination as needed for additional resources or supports. (Ongoing) Establish Stable Housing Care Plan SDOH LACK OF STABLE HOUSING No Ashley Romero, [facility] Note: Barriers: Lives with family, suspects that he will need to move, low income and financial concerns Strengths: Engaged and motivated Patient expressed understanding of goal: Yes Action steps to achieve this goal: 1. I will review housing resources sent to me by healthcare social worker and reach out to those I'm most interested in (11/08: New) 2. I will contact healthcare social worker if questions about the resources sent or needing help to initiate contact with those I'm interested in (11/08: New) 3. I will contact healthcare social worker if needing additional resources and information (11/08: New) Improve management of mental health symptoms and establish with mental health/psychosocia l supports Care Plan Mental Health Symptoms Need Improvement Ashley Morris, [facility] Note: Barriers: Limited support, emotionally overwhelmed, anticipate need to put dog down and sad Strengths: Open to considering assistance and engaged Patient expressed understanding of goal: Yes Action steps to achieve this goal: 1. I will consider scheduling a follow-up apt with my PCP to discuss medication management for my mental annemarie (01/09: New) 2. I will review mental health resources sent by healthcare social worker and consider establishing with a mental health provider (01/09: New) 3. I will contact the healthcare social worker if needing assistance with scheduling/coordinating(01/09: New) 4. I will check with my insurance to verify my insurance benefits/coverage (01/09: New) 5. I will contact the healthcare social worker if and when needing additional resources and support documented as of this encounter Visit Diagnoses Not on filedocumented in this encounter Additional Health Concerns Active Problems Noted Date Diagnosed Date Patient expresses financial resource strain 11/27 SDOH LACK OF STABLE HOUSING 01/09/2025 Mental Health Symptoms Need Improvement 01/09/20 25 Assessment Noted Time PHQ-9 Depression Total Score: 9 12/22/19 25 10:48 AM DELIVERY ARCHITECT documented as of this encounter Care Teams Heddler Tier Relationship Specialty Start Date End Date Jovany Salguero MD [address] [place] [address] PCP - General Internal Medicine 10/02/18 Jovany Salguero MD [address] [place] [address] Assigned PCP 09/05/20 Janki Ortiz PA-C [address] [place] [address] [address] [facility] [facility] [place] [address] Physician Local Flatbed Driver Dermatology 09/29/21 Jovany Salguero MD [address] [place] [address] Assigned Pain Medication Provider 07/14/23 [place] [address] [place] [address] Nurse Practitioner Nurse Practitioner 02/14/24 Ashley Romero, [facility] Lead Cafeteria Worker 05/09/24 [place] [address] [place] [address] [place] [address] Assigned Musculoskeletal Provider 11/17/24 documented as of this encounter
--- OUTSIDE RECORDS SUMMARY | 2025-01-23 19:38 | XMS_ITS | Encounter Summary ---
Author Organization [place] Address [address] [place] [address] Care Team Providers Care Webbing Supervisor Name Role Phone Jovany Salguero MD Primary Care Provider Jovany Salguero MD Unavailable [phone] Janki Ortiz PA-C Unavailable Jovany Salguero MD Unavailable Yisel Soliman NP Unavailable Ashley Romero CHIEF OPERATOR REFORMER Unavailable Lewis Chiu DO Unavailable [phone] Reason for Visit * Reason Onset Date Comments Results 01/08/2025 Encounter Details Date Type Department Care Team (Late st Contact Info) Description 01/08/2025 Telephone [facility] [address] [place] [address] Jovany Salguero MD [address] [facility] [place] [address] Results Social History Tobacco Use Types Packs/Day [...] than three times a week 02/05/2024 Attends Tenriism Services Not on file 02/04 Active Member of Clubs or Organizations Not on f ile 02/05/2024 Attends Club or Organization Meetings Not on jasiel e 02/05/2024 Marital Status Not on file 02/05/2024 PHQ-2 Answer Date Recorded PHQ-2 Score 3 12/22/2024 [facility] [place] of Occupat ional Health - Occupational Stress [...] Date Recorded Do you have housing? (Klaus g is defined as stable permanent housing and does not include staying ouside in a car, in a tent, in an abandoned building, in an overnight senior living, or couch-surfing.) Yes 02/05/2024 Are you worried [...] on file Legal Sex Male 3:07 AM FORECAST ANALYST Gender Identity Not on file Sexual Orientation Not on file documented as of this encounter Miscellaneous Notes * Telephone Encounter - Sanna Travis RN - 01/09/2025 3:14 PM FORECAST ANALYST Pt called back. Advised. He verbalized understanding. CAST ANALYST * Telephone Encounter - Brooke Ruiz RN - 01/09/2025 3:11 PM CST Attempt # 1 Called Was Call answered? No Called and left patient a detailed voice mail message (indicated okay to do so in initial message) on January 09, 2025 3:[address] Salguero's message. Instructed to call back with any further questions/concerns. Thank you, Dilip, section hand helper [facility] 3:11 PM 01/09/2025 CAST ANALYST * Telephone Encounter - Jovany Salguero MD - 01/09/2025 3:06 PM FORECAST ANALYST Cologuard test is normal, negative. Recheck in 3 years. CAST ANALYST * Telephone Encounter - Chelsea Null - 01/09/2025 12:23 PM CST Test Results Contacts Contact Date/Time Type Contact Phone/Fax 01/08/2025 02:14 PM FORECAST ANALYST Phone (Incoming) Darrin Liu (Self) [phone] (M) Who ordered the test: PCP Type of test: Lab Date of test: 01/08/25 Where was the test performed: [facility] What are your questions/concerns?: Awaiting results and is concerned about what results are Okay to leave a detailed message?: Yes at Home number on file [phone] (home) CAST ANALYST * Telephone Encounter - Agata Brito LPN - 01/09/2025 8:36 AM CST Needs to have PCP see results first CAST ANALYST * Telephone Encounter - Vanesa Bae - 01/08/2025 2:14 PM CST Test Results Contacts Contact Date/Time Type Contact Phone/Fax 01/08/2025 02:14 PM FORECAST ANALYST Phone (Incoming) Darrin Liu (Self) [phone] (M) Who ordered the test: PCP Type of test: Lab, Cologuard Date of test: 01/02/25 Where was the test performed: [facility] What are your questions/concerns?: Results Okay to leave a detailed message?: Yes at Cell number on file: Telephone Information: CAST ANALYST documented in this encounter Plan of Treatment Not on file documented as of this encounter Goals Goal Patient Goal Type Associated Problems Recent Progress Patient-Stated? Author Create an action plan to increase financial stability Care Plan Patient expresses financial resource strain 60%( 12:56 PM FORECAST ANALYST) No Tawanna Davis, CHIEF OPERATOR REFORMER Note: Barriers: fixed/limited income Strengths: family support Patient expressed understanding of goal: yes Action steps to achieve this goal: I will utilize [employer] (Completed) I will work with Financial Resource Worker regarding my outstanding medical bills and get assistance from [facility]. (Completed) I will work with financial resource worker on certain pops [place] application and [place] benefits (Pending) I will work with Financial Resource Worker to reinstate my [facility] benefits and transfer them to [place] to [facility] (01/09: In Progress - pt stated that they transferred and he recently filled out paperwork and sent it back into the [facility] and is waiting on a return call/update) [...] review housing resources sent to me by child care centre director and reach out to those I'm most interested in (11/08: New) 2. I will contact child care centre director if questions about the resources sent or needing help to initiate contact with those I'm interested in (11/08: New) 3. I will contact child care centre director if needing additional resources and information [...] will review mental health resources sent by child care centre director and consider establishing with a mental health provider (01/09: New) 3. I will contact the child care centre director if needing assistance with scheduling/coordinating(01/09: New) 4. I will check with my insurance to verify my insurance benefits/coverage (01/09: New) 5. I will contact the child care centre director if and when needing additional resources and support documented as of this encounter Visit Diagnoses Not on filedocumented in this encounter Additional Health Concerns Active Problems Noted Date Diagnosed Date Patient expresses financial resource strain 11/27 SDOH LACK OF STABLE HOUSING 01/09/2025 Mental Health Symptoms Need Improvement 01/09/20 Assessment Noted Time PHQ-9 Depression Total Score: 9 12/22/19 10:48 AM FORECAST ANALYST documented as of this encounter Care Teams Webbing Supervisor Relationship Specialty Start Date End Date Jovany Salguero MD [address] [place] [address] PCP - General Internal Medicine 10/02/18 Jovany Salguero MD [address] [place] [address] Assigned PCP 09/05/20 Janki Ortiz PA-C [address] [place] [address] DR HENRIQUEZ [address] [place] [address] [id number] Physician Diabetologist Dermatology 09/29/21 Jovany Salguero MD [address] [place] [address] Assigned Pain Medication Provider 07/14/23 [place] [address] [place] [address] Nurse Practitioner Nurse Practitioner 02/14/24 Ashley Romero, [facility] Lead Ramp Flight Attendant 05/09/24 [place] [address] [facility] [place] [address] Assigned Musculoskeletal Provider 11/17/24 documented as of this encounter
--- OUTSIDE RECORDS SUMMARY | 2025-01-23 19:38 | XMS_ITS ---
Care Plan Created on: January 23, 2025 Jhon Liu : 1955 Sex: Male Author Organization [place] Address [address] [place] [address] Care Team Providers Care Chief I Dispatcher Name Role Phone Jovany Salguero MD Primary Care Provider [phone] Jovany Salguero MD Unavailable [phone] Janki Ortiz-C Unavailable [phone] Jovany Salguero MD Unavailable Yisel Soliman NP Unavailable [phone] Ashley Romero MASTER OF CEREMONIES Unavailable [phone] Lewis Chiu DO Unavailable [phone] Active Problems Problem Noted Date Diagnosed [...] vomiting) 10/17/2015 Opiate withdrawal 10/15/2015 02/10/2016 [facility] (HEALTHCARE) 07/03/2014 10/12/2016 Overview (07/03/2014): Status: Accepted Supervisor Production: Concha Casey See Letters for [facility] Care Plan Date: July 03, 2014 Metabolic acidosis 06/25/2014 4 Vomiting 01/24/2014 07/07/2014 Acute abdominal pain 12/21/2013 015 Intractable nausea and vomiting 12/20/2013 07/07/2014 Advanced directives, counseling/discussion 07/04/2012 09/27/2018 Overview (07/04/2012): Discussed Advance Directive planning with patient; information given to patient to review. [facility] 01/05/2012 07/02/2014 Overview (07/02/2014): Status: Accepted Supervisor Production: Concha Casey See Letters for [facility] Care Plan Date: July 02, 2014 Personal history of pancreatic cancer 12/11/2011 07/07/2014 Alcoholism 12/02/2011 02/10/2016 Major depression 06/19/2011 02/10/2016 Dyspepsia and other specifie d disorders of function of stomach 10/17/2004 02/10/2016 Overview (10/17/2004): Status Post Billroth I Procedure 08/11/2004 Additional Health Concerns Active Problems Noted Date Diagnosed Date Patient expresses financial resource strain 11/27 SDOH LACK OF STABLE HOUSING 01/09/2025 Mental Health Symptoms Need Improvement 01/09/20 25 Goals Goal Patient Goal Type Associated Problems Recent Progress Patient-Stated? Author Create an action plan to increase financial stability Care Plan Patient expresses financial resource strain 60%( 5 12:56 PM MONITORING MANAGER) No Tawanna Davis LICSW Note: Barriers: fixed/limited income Strengths: family support Patient expressed understanding of goal: yes Action steps to achieve this goal: I will utilize [employer] (Completed) I will work with Financial Resource Worker regarding my outstanding medical bills and get assistance from [facility]. (Completed) I will work with financial resource worker on certain [place] application and [place] benefits (Pending) I will work with Financial Resource Worker to [place] benefits and [place] them to [place] to [facility] (01/09: In Progress - pt stated that they transferred and he recently filled out paperwork and sent it back into the [facility] and is waiting on a return [...] review housing resources sent to me by health care sanitary technician and reach out to those I'm most interested in (11/08: New) 2. I will contact health care sanitary technician if questions about the resources sent or needing help to initiate contact with those I'm interested in (11/08: New) 3. I will contact health care sanitary technician if needing additional resources and information (11/08: New) Improve management of mental health symptoms and establish with mental health/psychosocia l supports Care Plan Mental Health Symptoms Need Improvement Ashley Morris, [facility] Note: Barriers: Limited support, emotionally overwhelmed, [...] will review mental health resources sent by health care sanitary technician and consider establishing with a mental health provider (01/09: New) 3. I will contact the health care sanitary technician if needing assistance with scheduling/coordinating(01/09: New) 4. I will check with my insurance to verify my insurance benefits/coverage (01/09: New) 5. I will contact the health care sanitary technician if and when needing additional resources and support Interventions Care Plan Interventions Intervention Entry Date Outcome Educate on stress management techniques as indicated 01/09/2025 Provide mental health crisis resources as incidated 01/09/2025 Discuss options for mental health support and place referrals as appropriate 01/09/2025 Provide Housing Resources 01/09/2025 Related Goals and Interventions Goal Associated Intervent ions Establish Stable Housing Provide Housing Resources Improve management of mental health symptoms and establish with mental health/psychosocial supports Educate on stress management techniques as indicated; Provide mental health crisis resources as incidated; Discuss options for mental health support and place referrals as appropriate
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
--- OUTSIDE RECORDS SUMMARY | 2025-01-23 19:38 | XMS_ITS | Encounter Summary ---
Author Organization [place] Address [address] [facility] [address] Care Team Providers Care Immigration Officer Name Role Phone Doctor, None Primary Care Provider Unavailabl Judy Alexis MD Primary Care Provider [phone] [facility] Primary Care Provider Jovany Salguero MD Primary Care Provider [phone] Daniela Bledsoe Unavailable UnaKelsy Salas PROFESSIONAL SYSTEM ADMINISTRATOR CUFF SETTER OVERLOCK Unavailable Un available Blanquita Lindsey APRN CUFF SETTER OVERLOCK Unavailable [phone] Kelsy Samayoa PROFESSIONAL SYSTEM ADMINISTRATOR CUFF SETTER OVERLOCK Unavailable Un available Jovany Salguero MD Unavailable [phone] Kelsy Samayoa APRN CUFF SETTER OVERLOCK Unavailable Un available Judy Mcpherson MD Unavailable [phone] Kelsy Samayoa APRN CUFF SETTER OVERLOCK Unavailable Un available Jovany Salguero MD Unavailable [phone] Bonifacio Bender MD Unavailable [phone] Janki OrtizC Unavailable [phone] Gera Rowley PA-C Unavailable [phone] Bonifacio Bender MD Unavailable [phone] Didi Villarreal MD Unavailable Gera Rowley PA-C Unavailable [phone] Jovany Salguero MD Unavailable Cheko Lyons MD Unavailable Abraham Gutierres MD Unavailable [phone] Nereyda Saleem MD Unavailable [phone] Jovany Salguero MD Unavailable [phone] Ryan, Tawanna Mercedez SALOONKEEPER Unavailable Gera Rowley PA-C Unavailable [phone] Abraham Gutierres MD Unavailable Yisel Soliman ENGINEER AND GEOLOGIST Unavailable [phone] Denise Keys CLAY MILLER Unavailable [phone] Harmony Bowden CHW Unavailable [phone] Ashley Romero SALOONKEEPER Unavailable India Starr CHW Unavailable [phone] Lewis Chiu DO Unavailable [phone] Encounter Details Date Type Department Care Team (Late st Contact Info) Description 07/13/2004 [facility] [address] [place] [address] Sam Peterson MD XXX RESIGNED XXX [address] [place] [address] OP REPORT (Primary Dx) Social History Tobacco Use Types Packs/Day Years Used Date Smoking Tobacco: Some Days Cigarettes 1 39 Smokeless Tobacco: Never Comments:1 ppd smoker Alcohol Use Standard Drinks/Week Comments Yes 4 (1 standard drink = 0.6 oz pur e alcohol) Occas Sex and Gender Information Value Date Recorded Sex Assigned at Not on file Legal Sex Male 3:07 AM CHIEF ACCOUNTING OFFICER Gender Identity Not on file Sexual Orientation Not on file documented as of this encounter Plan of Treatment Not on file documented as of this encounter Visit Diagnoses Diagnosis OP REPORT- Primary documented in this encounter Additional Health Concerns Infection Onset Date Last Indicated Resolved Time COVID-19 06/22/2021 06/22/2021 07/13/2021 11:3 9 PM CDT documented as of this encounter Care Teams Immigration Officer Relationship Specialty Start Date End Date Doctor, MD Franny PCP - General 01/10/02 08/01/04 Judy Mcpherson MD [address] [id number] PCP - General Internal Medicine 12/25/14 08/18/18 [facility] [address] [facility] [place] [address] PCP - General Internal Medicine 08/19/18 10/01/18 Jovany Salguero MD [address] [place] [address] PCP - General Internal Medicine 10/02/18 Kelsy Samayoa APRN CUFF SETTER OVERLOCK PCP - Assigned PCP 10/06/18 01/28/19 Blanquita Lindsey APRN CUFF SETTER OVERLOCK [address] [place] [address] PCP - Assigned PCP 03/17/18 10/05/18 Daniela Bledsoe LISW [facility] [employer] Machine Operator 10/03/18 01/30/19 Kelsy Samayoa APRN CUFF SETTER OVERLOCK Assigned PCP 10/06/18 06/28/19 Jovany Salguero MD [address] [place] [address] Assigned PCP 06/29/19 08/23/19 Kelsy Samayoa APRN CUFF SETTER OVERLOCK Assigned PCP 08/24/19 09/27/19 Judy Mcpherson MD [address] [facility] [address] [place] [address] Assigned PCP 09/28/19 10/11/19 Kelsy Samayoa APRN CUFF SETTER OVERLOCK Assigned PCP 10/12/19 09/04/20 Jovany Salguero MD [address] [place] [address] Assigned PCP 09/05/20 [place] [address] [address] Assigned Musculoskeletal Provider 09/17/20 12/24/21 Janki Ortiz PA-C [address] [place] [address] [address] Physician Compress Engineer Dermatology 09/29/21 Gera Rowley PA-C [address] [address] Assigned Musculoskeletal Provider 07/29/22 10/13/22 [place] [address] [address] Assigned Musculoskeletal Provider 10/14/22 11/10/22 Didi Villarreal MD ORTHOPAEDIC SURGERY [address] [place] [address] Assigned Musculoskeletal Provider 11/11/22 02/16/23 Gera Rowley PA-C [address] [place] [address] Assigned Musculoskeletal Provider 02/17/23 05/04/23 Jovany Salguero MD [address] [place] [address] Assigned Pain Medication Provider 02/24/23 06/22/23 [place] [address] [address] Assigned Musculoskeletal Provider 05/05/23 11/16/24 Abraham Gutierres MD [address] [place] [address] Assigned Neuroscience Provider 05/05/23 12/19/23 [place] [address] [place] [address] Assigned Pain Medication Provider 06/23/23 07/13/23 Jovany Salguero MD [address] [place] [address] Assigned Pain Medication Provider 07/14/23 Tawanna Davis, [facility] Lead Deburring And Tooling Machine Operator Plywood Layup Line Core Layer - Clinical 12/17/23 02/29/24 Gera Rowley PA-C [address] [place] [address] Assigned Neuroscience Provider 12/20/23 02/07/24 Abraham Gutierres MD [address] [facility] [address] [place] [address] Assigned Neuroscience Provider 02/08/24 11/16/24 Yisel Soliman, MANISHA [address] [place] [address] Nurse Practitioner Nurse Practitioner 02/14/24 Denise Keys, CLAY MILLER [address] [place] [address] Lead Deburring And Tooling Machine Operator Primary Care - CC 02/29/2405/09 Harmony Bowden [facility] Community Health Worker 03/26/2406/12 Ashley Romero, [facility] Lead Deburring And Tooling Machine Operator 05/09/24 India Starr Ed Community Health Worker 06/12/2412/24 [place] [address] [address] [facility] [address] [address] Assigned Musculoskeletal Provider 11/17/24 documented as of this encounter
--- OUTSIDE RECORDS SUMMARY | 2025-01-23 19:39 | XMS_ITS | Encounter Summary ---
Author Organization [place] Address [address] [place] [address] Care Team Providers Care Office Director Name Role Phone Judy Mcpherson MD Primary Care Provider [phone] [facility] Primary Care Provider Jovany Salguero MD Primary Care Provider [phone] Daniela Bledsoe Unavailable Unavai Kelsy Bryson ETL DATA ARCHITECT HIV/AIDS CARE NURSE Unavailable Un available Blanquita Lindsey ETL DATA ARCHITECT HIV/AIDS CARE NURSE Unavailable [phone] Kelsy Samayoa APRN HIV/AIDS CARE NURSE Unavailable Un available Jovany Salguero MD Unavailable [phone] Kelsy Samayoa APRN HIV/AIDS CARE NURSE Unavailable Un available Judy Mcpherson MD Unavailable [phone] Kelsy Samayoa APRN HIV/AIDS CARE NURSE Unavailable Un available Jovany Salguero MD Unavailable [phone] Bonifacio Bender MD Unavailable [phone] Janki OrtizC Unavailable [phone] Gera RowleyC Unavailable [phone] Bonifacio Bender MD Unavailable [phone] Didi Villarreal MD Unavailable Gera Rowley PA-C Unavailable Jovany Salguero MD Unavailable Cheko Lyons MD Unavailable Abraham Gutierres MD Unavailable Nereyda Saleem MD Unavailable [phone] Jovany Salguero MD Unavailable [phone] Ryan, Tawanna Mercedez FIRST BREAKER FEEDER Unavailable [phone] Gera Rowley PA-C Unavailable Abraham Gutierres MD Unavailable [phone] Yisel Soliman ASSEMBLER [employer] PRODUCTS Unavailable Denise Keys INSIDE SALES ASSISTANT Unavailable [phone] Harmony Bowden CHW Unavailable [phone] Ashley Romero FIRST BREAKER FEEDER Unavailable India Starr CHW Unavailable [phone] Lewis Chiu DO Unavailable [phone] Reason for Visit * Reason Onset Date Comments Health Maintenance 02/22/2012 fit request Encounter Details Date Type Department Care Team (Late st Contact Info) Description 02/22/2012 Telephone [facility] [address] [place] [address] Sam Peterson MD XXX RESIGNED XXX [address] [place] [address] Health Maintenance (fit request) Social History Tobacco Use Types Packs/Day Years Used Date Smoking Tobacco: Every Day Cigarettes Smokeless Tobacco: Never Alcohol Use Standard Drinks/Week Comments Yes 2.5 (1 standard drin k = 0.6 oz pure alcohol) every night 2-3 beers, none for 1 week Sex and Gender Information Value Date Recorded Sex Assigned at Not on file 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 Order placed for provider to sign. Patient will pickling grader at the clinic when he comes in for 03/[address] Peterson documented in this encounter Plan of Treatment Not on file documented as of this encounter Visit Diagnoses Not on filedocumented in this encounter Additional Health Concerns Infection Onset Date Last Indicated Resolved Time COVID-19 06/22/2021 06/22/2021 07/13/2021 11:3 9 PM CDT documented as of this encounter Care Teams Office Director Relationship Specialty Start Date End Date Judy Mcpherson MD [address] [address] PCP - General Internal Medicine 12/25/14 08/18/18 [facility] [address] [place] [address] PCP - General Internal Medicine 08/19/18 10/01/18 Jovany Salguero MD 303 [place] [address] PCP - General Internal Medicine 10/02/18 Kelsy Samayoa APRN HIV/AIDS CARE NURSE PCP - Assigned PCP 10/06/18 01/28/19 Blanquita Lindsey APRN HIV/AIDS CARE NURSE 303 [place] [address] PCP - Assigned PCP 03/17/18 10/05/18 Daniela Bledsoe, BRANCH SPECIALIST Clinic Chemical Equipment Repairer 10/03/18 01/30/19 Kelsy Samayoa, ETL DATA ARCHITECT HIV/AIDS CARE NURSE Assigned PCP 10/06/18 06/28/19 Jovany Salguero MD [address] [place] [address] Assigned PCP 06/29/19 08/23/19 Kelsy Samayoa APRN HIV/AIDS CARE NURSE Assigned PCP 08/24/19 09/27/19 Judy Mcpherson MD [address] [facility] [address] [place] [address] Assigned PCP 09/28/19 10/11/19 Kelsy Samayoa APRN HIV/AIDS CARE NURSE Assigned PCP 10/12/19 09/04/20 Jovany Salguero MD [address] [place] [address] Assigned PCP 09/05/20 [place] [address] [facility] [address] [place] [address] Assigned Musculoskeletal Provider 09/17/20 12/24/21 Janki Ortiz PA-C [address] [place] [address] [facility] [address] [place] [address] Physician Multiple Pressure Riveter Operator Dermatology 09/29/21 Gera Rowley PA-C [address] [facility] [address] [place] [address] Assigned Musculoskeletal Provider 07/29/22 10/13/22 [place] [address] [facility] [address] [place], [place] [address] Assigned Musculoskeletal Provider 10/14/22 11/10/22 Didi Villarreal MD ORTHOPAEDIC SURGERY [address] [address] Assigned Musculoskeletal Provider 11/11/22 02/16/23 Gera Rowley PA-C [address] [address] Assigned Musculoskeletal Provider 02/17/23 05/04/23 Jovany Salguero MD [address] [place] [address] Assigned Pain Medication Provider 02/24/23 06/22/23 [place] [address] [address] Assigned Musculoskeletal Provider 05/05/23 11/16/24 Abraham Gutierres MD [address] [place] [address] Assigned Neuroscience Provider 05/05/23 12/19/23 [place] [address] [place] [address] Assigned Pain Medication Provider 06/23/23 07/13/23 Jovany Salguero MD [address] [place], [place] [address] Assigned Pain Medication Provider 07/14/23 Tawanna Davis, [facility] Lead Chemical Equipment Repairer Prosthetic Technician - Clinical 12/17/23 02/29/24 Gera Rowley PA-C [address] [facility] [address] [place] [address] Assigned Neuroscience Provider 12/20/23 02/07/24 Abraham Gutierres MD [address] [place] [address] Assigned Neuroscience Provider 02/08/24 11/16/24 [place] [address] [place] [address] Nurse Practitioner Nurse Practitioner 02/14/24 Denise Keys, INSIDE SALES ASSISTANT [address] [place] [address] Lead Chemical Equipment Repairer Primary Care - CC 02/29/2405/09 Harmony Bowden, [facility] Community Health Worker 03/26/2406/12 Ashley Romero, [facility] Lead Chemical Equipment Repairer 05/09/24 India Starr [facility] Community Health Worker 06/12/2412/24 [place] [address] [address] [place] [address] [place] [address] Assigned Musculoskeletal Provider 11/17/24 documented as of this encounter
--- OUTSIDE RECORDS SUMMARY | 2025-01-23 19:39 | XMS_ITS | Encounter Summary ---
Author Organization [place] Address [address] [place] [address] Care Team Providers Care Recording Studio Internship Name Role Phone Jovany Salguero MD Primary Care Provider [phone] Daniela Bledsoe Unavailable UnavaKelsy Figueroa APRN CERAMIC TILE SETTER Unavailable Un available Kelsy Samayoa APRN CERAMIC TILE SETTER Unavailable Un available Jovany Salguero MD Unavailable [phone] Kelsy Samayoa APRN CERAMIC TILE SETTER Unavailable Un available Judy Mcpherson MD Unavailable [phone] Kelsy Samayoa APRN CERAMIC TILE SETTER Unavailable Un available Jovany Salguero MD Unavailable [phone] Bonifacio Bender MD Unavailable [phone] Janki Ortiz PA-C Unavailable [phone] Gera Rowley-C Unavailable [phone] Bonifacio Bender MD Unavailable [phone] Didi Villarreal MD Unavailable [phone] Gera RowleyC Unavailable [phone] Jovany Salguero MD Unavailable [phone] Cheko Lyons MD Unavailable Abraham Gutierres MD Unavailable [phone] Nereyda Saleem MD Unavailable [phone] Jovany Salguero MD Unavailable Tawanna aDvis Mercedez RADIO DIVISION CAPTAIN Unavailable Gera Rowley PA-C Unavailable Abraham Gutierres MD Unavailable [phone] Yisel Soliman NEWS LIBRARY DIRECTOR Unavailable [phone] Denise Keys MANAGER RESIDENTIAL Unavailable [phone] Harmony Bowden CHW Unavailable [phone] Ashley Romero RADIO DIVISION CAPTAIN Unavailable India Starr CHW Unavailable [phone] Lewis Chiu DO Unavailable [phone] Reason for Visit * Reason Onset Date Comments Refill Request 10/29/2018 hydromorphone Encounter Details Date Type Department Care Team (Late st Contact Info) Description 10/29/[address] [place] [phone] Jovany Salguero MD [address] [place] [address] Refill Request (hydromorphone) Social History Tobacco Use Types Packs/Day Years Used Date Smoking Tobacco: Every Day Cigarettes 1 39 Smokeless Tobacco: Never Comments:2 ppd smoker Alcohol Use Standard Drinks/Week Comments Yes 4 (1 standard drink = 0.6 oz pur e alcohol) Occas Sex and Gender Information Value Date Recorded Sex Assigned at Not on file Legal Sex Male 3:07 AM REVIEW CONSULTANT Gender Identity Not on file Sexual Orientation Not on file documented as of this encounter Miscellaneous Notes * Telephone Encounter - Radhika Lu RN - 10/30/2018 8:10 AM REVIEW CONSULTANT Patient has 3 tabs of Hydromorphone left. Rx to go to [facility] Hydromorphone 2 mg Last Written Prescription Date: 10/18/18 Last Fill Quantity: 50, # refills: 0 Last Office Visit: 10/11/18 Future Office visit: Next 5 appointments (look out 90 days) Nov 07, 2018 11:00 AM REVIEW CONSULTANT Return Visit with Lolita Galaviz APRN CNP [facility] ([facility]) [address] [place] [phone] Routing refill request to provider for review/approval because: Drug not on the [facility], [facility] or Health refill protocol or controlled substance No signed controlled substance agreement EW CONSULTANT documented in this encounter Plan of Treatment Not on file documented as of this encounter Visit Diagnoses Diagnosis S/P cervical spinal fusion Arthrodesis status documented in this encounter Additional Health Concerns Infection Onset Date Last Indicated Resolved Time COVID-19 06/22/2021 06/22/2021 07/13/2021 11:3 9 PM CDT Assessment Noted Time PHQ-9 Depression Total Score: 8 06/26/20 18 7:17 AM CDT documented as of this encounter Care Teams Recording Studio Internship Relationship Specialty Start Date End Date Jovany Salguero MD [address] [place] [address] PCP - General Internal Medicine 10/02/18 Kelsy Samayoa APRN CERAMIC TILE SETTER PCP - Assigned PCP 10/06/18 01/28/19 Daniela Bledsoe LISW Clinic Music Promoter 10/03/18 01/30/19 Kelsy Samayoa APRN CNP Assigned PCP 10/06/18 06/28/19 Jovany Salguero MD [address] [place] [address] Assigned PCP 06/29/19 08/23/19 Kelsy Samyaoa APRN CERAMIC TILE SETTER Assigned PCP 08/24/19 09/27/19 Judy Mcpherson MD [address] [facility] 200 [place] [address] Assigned PCP 09/28/19 10/11/19 Kelsy Samayoa APRN CERAMIC TILE SETTER Assigned PCP 10/12/19 09/04/20 Jovany Salguero MD [address] [place] [address] Assigned PCP 09/05/20 [place] [address] [address] Assigned Musculoskeletal Provider 09/17/20 12/24/21 Janki Ortiz PA-C [address] [place] [address] [facility] [address] [place] [address] Physician Television News Anchor Dermatology 09/29/21 Gera Rowley PA-C [address] [address] Assigned Musculoskeletal Provider 07/29/22 10/13/22 [place] [address] 639527 Assigned Musculoskeletal Provider 10/14/22 11/10/22 Didi Villarreal MD ORTHOPAEDIC SURGERY [address] [place] [address] Assigned Musculoskeletal Provider 11/11/22 02/16/23 Gera Rowley PA-C [address] [place] [address] [place] [address] Assigned Musculoskeletal Provider 02/17/23 05/04/23 Jovany Salguero MD [address] [place] [id number] Assigned Pain Medication Provider 02/24/23 06/22/23 [place] [address] [place] [place] [place] [id number] Assigned Musculoskeletal Provider 05/05/23 11/16/24 Abraham Gutierres MD [address] [place] [address] Assigned Neuroscience Provider 05/05/23 12/19/23 [place] [address] [place] [id number] Assigned Pain Medication Provider 06/23/23 07/13/23 Jovany Salguero MD [address] [place] [address] Assigned Pain Medication Provider 07/14/23 Tawanna Davis, [facility] Lead Music Promoter Supervisor Concrete Stone Finishing - Clinical 12/17/23 02/29/24 Gera Rowley PA-C [address] [place] [address] [place] [address] Assigned Neuroscience Provider 12/20/23 02/07/24 Abraham Gutierres MD [address] [facility] [address] [place] [address] Assigned Neuroscience Provider 02/08/24 11/16/24 Yisel Soliman, MANIS[place] [address] [place] [id number] Nurse Practitioner Nurse Practitioner 02/14/24 Denise Keys, LYNDON [address] [place] [address] Lead Music Promoter Primary Care - CC 02/29/2405/09 Harmony Bowden [facility] Community Health Worker 03/26/2406/12 Ashley Romero, [facility] Lead Music Promoter 05/09/24 India Starr [facility] Community Health Worker 06/12/2412/24 [place] [address] [address] , [facility] [address] [place] [id number] Assigned Musculoskeletal Provider 11/17/24 documented as of this encounter
--- OUTSIDE RECORDS SUMMARY | 2025-01-23 19:39 | XMS_ITS | Encounter Summary ---
Author Organization [place] Address [address] [facility] [place] [address] Care Team Providers Care Supplies Packer Name Role Phone [facility] Primary Care Provider Jovany Salguero MD Primary Care Provider [phone] Daniela Bledsoe Unavailable Unavai Kelsy Bryson APRN TRANSPLANTER ORCHID Unavailable Un available Blanquita Lindsey APRN TRANSPLANTER ORCHID Unavailable [phone] Kelsy Samayoa PIE MAKER MACHINE TRANSPLANTER ORCHID Unavailable Un available Jovany Salguero MD Unavailable [phone] Kelsy Samayoa APRN TRANSPLANTER ORCHID Unavailable Un available Judy Mcpherson MD Unavailable [phone] Kelsy Samayoa APRN TRANSPLANTER ORCHID Unavailable Un available Jovany Salguero MD Unavailable [phone] Bonifacio Bender MD Unavailable [phone] Janki Ortiz PA-C Unavailable [phone] Gera Rowley PA-C Unavailable [phone] Bonifacio Bender MD Unavailable [phone] Didi Villarreal MD Unavailable [phone] Gera Rowley PA-C Unavailable [phone] Jovany Salguero MD Unavailable Cheko Lyons MD Unavailable Abraham Gutierres MD Unavailable Nereyda Saleem MD Unavailable [phone] Jovany Salguero MD Unavailable Ryan, Tawanna Mercedez VICE PRESIDENT QUALITY IMPROVEMENT Unavailable Gera Rowley PA-C Unavailable [phone] Abraham Gutierres MD Unavailable Yisel Soliman HUMAN RESOURCE INTERNSHIP Unavailable Ludmila Denise CUFF KNITTER Unavailable [phone] Harmony Bowden CHW Unavailable [phone] Ashley Romero VICE PRESIDENT QUALITY IMPROVEMENT Unavailable India Starr CHW Unavailable [phone] Lewis Chiu DO Unavailable [phone] Encounter Details Date Type Department Care Team (Late st Contact Info) Description 09/20/2018 [facility] [address] [place] [phone] Jatin Pugh MD [facility] ORTHOPEDICS [address] [facility] [address] [place] [address] Pre-operative laboratory examination (Primary Dx) Social History Tobacco Use Types Packs/Day Years Used Date Smoking Tobacco: Every Day Cigarettes 0.5 39 Smokeless Tobacco: Never Comments:2 ppd smoker Alcohol Use Standard Drinks/Week Comments Yes 4 (1 standard drink = 0.6 oz pur e alcohol) Occas Sex and Gender Information Value Date Recorded Sex Assigned at Not on file 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 Gender Identity Not on file Sexual Orientation Not on file documented as of this encounter Plan of Treatment Not on file documented as of this encounter Results * ABO/Rh type and screen (09/24/2018 10:55 AM CDT) ABO A 09/24/2018 11:37 AM CDT [facility] RH(D) Pos [facility] Antibody Screen Neg 09/24/2018 11:37 AM CDT [facility] Test Valid Only At [facility] 09/24/2018 11:38 AM CDT [facility] Specimen Expires 09/28/2018 09/24/2018 11:38 AM CDT [facility] Blood specimen (specimen) 09/24/2018 10:55 AM CDT 09/24/2018 10:58 AM CDT us Jatin Pugh MD LAB - BLOOD BANK LAURA T ORDER Final Result [facility] [address] [place] [address], [facility] [phone] documented in this encounter Visit Diagnoses Diagnosis Pre-operative laboratory examination- Primary Pre-procedural laboratory examination documented in this encounter Additional Health Concerns Infection Onset Date Last Indicated Resolved Time COVID-19 06/22/2021 06/22/2021 07/13/2021 11:3 9 PM CDT Assessment Noted Time PHQ-9 Depression Total Score: 8 06/26/20 18 7:17 AM CDT documented as of this encounter Care Teams Supplies Packer Relationship Specialty Start Date End Date Clinic - [facility] [address] [place] [address] PCP - General Internal Medicine 08/19/18 10/01/18 Jovany Salguero MD [address] [place] [address] PCP - General Internal Medicine 10/02/18 Kelsy Samayoa APRN TRANSPLANTER ORCHID PCP - Assigned PCP 10/06/18 01/28/19 Blanquita Lindsey APRN TRANSPLANTER ORCHID [address] [place] [address] PCP - Assigned PCP 03/17/18 10/05/18 Daniela Bledsoe, [facility] Catalogue Librarian 10/03/18 01/30/19 Kelsy Samayoa APRN TRANSPLANTER ORCHID Assigned PCP 10/06/18 06/28/19 Jovany Salguero MD [address] [place] [address] Assigned PCP 06/29/19 08/23/19 Kelsy Samayoa APRN TRANSPLANTER ORCHID Assigned PCP 08/24/19 09/27/19 Judy Mcpherson MD [address] [facility] [address] [place] [address] Assigned PCP 09/28/19 10/11/19 Kelsy Samayoa APRN TRANSPLANTER ORCHID Assigned PCP 10/12/19 09/04/20 Jovany Salguero MD [address] [place] [address] Assigned PCP 09/05/20 [place] [address] [facility] [address] [place] [address] Assigned Musculoskeletal Provider 09/17/20 12/24/21 Janki Ortiz PA-C [address] [place] [address] [address] [address] Physician Laborer Shellfish Processing Dermatology 09/29/21 Gera Rowley PA-C [address] [place] [address] [place] [address] Assigned Musculoskeletal Provider 07/29/22 10/13/22 [place] [address] [address] Assigned Musculoskeletal Provider 10/14/22 11/10/22 Didi Villarreal MD ORTHOPAEDIC SURGERY [address] [place] [address] Assigned Musculoskeletal Provider 11/11/22 02/16/23 Gera Rowley PA-C [address] [facility] [address] [place] [address] Assigned Musculoskeletal Provider 02/17/23 05/04/23 Jovany Salguero MD [address] [place] [address] Assigned Pain Medication Provider 02/24/23 06/22/23 [place] [address] [address] Assigned Musculoskeletal Provider 05/05/23 11/16/24 Abraham Gutierres MD [address] [place] [address] Assigned Neuroscience Provider 05/05/23 12/19/23 [place] [address] [place] [address] Assigned Pain Medication Provider 06/23/23 07/13/23 Jovany Salguero MD [address] [place] [address] Assigned Pain Medication Provider 07/14/23 Tawanna Davis, [facility] Lead Catalogue Librarian Tie Cutter - Clinical 12/17/23 02/29/24 Gera Rowley PA-C [address] [address] Assigned Neuroscience Provider 12/20/23 02/07/24 Abraahm Gutierres MD [address] [place] [address] Assigned Neuroscience Provider 02/08/24 11/16/24 [place] [address] [facility] [facility] [place] [address] Nurse Practitioner Nurse Practitioner 02/14/24 Dneise Keys, CUFF KNITTER [address] [place] [address] Lead Catalogue Librarian Primary Care - CC 02/29/2405/09 Harmony Bowden W Community Health Worker 03/26/2406/12 Ashley Romero, [facility] Lead Catalogue Librarian 05/09/24 India Starr Ed Community Health Worker 06/12/2412/24 [place] [address] [address], [address] [address] Assigned Musculoskeletal Provider 11/17/24 documented as of this encounter
--- OUTSIDE RECORDS SUMMARY | 2025-01-23 19:39 | XMS_ITS | Encounter Summary ---
Author Organization [place] Address [address] [facility] [place] [address] Care Team Providers Care Transformer Stock Clerk Name Role Phone [facility] Primary Care Provider Jovany Salguero MD Primary Care Provider [phone] Daniela Bledsoe Unavailable Unavai Kelsy Bryson APRN CHAUFFEUR Unavailable Un available Blanquita Lindsey APRN CHAUFFEUR Unavailable + [phone] Kelsy Samayoa OXYGEN THERAPIST CHAUFFEUR Unavailable Un available Jovany Salguero MD Unavailable [phone] Kelsy Samayoa APRN CHAUFFEUR Unavailable Un available Judy Mcpherson MD Unavailable [phone] Kelsy Samayoa APRN CHAUFFEUR Unavailable Un available Jovany Salguero MD Unavailable [phone] Bonifacio Bender MD Unavailable [phone] Janki Ortiz PA-C Unavailable [phone] Gera Rowley PA-C Unavailable [phone] Bonifacio Bender MD Unavailable [phone] Didi Villarreal MD Unavailable [phone] Gera Rowley PA-C Unavailable [phone] Jovany Salguero MD Unavailable Cheko Lyons MD Unavailable Abraham Gutierers MD Unavailable Nereyda Saleem MD Unavailable [phone] Jovany Salguero MD Unavailable Ryan, Tawanna Mercedez SHEAR SETTER Unavailable Gera Rowley PA-C Unavailable [phone] Abraham Gutierres MD Unavailable Yisel Soliman TELEGRAPH PLANT MAINTAINER Unavailable Ludmila Denise RADIOLOGY ASST Unavailable Harmony Bowden CHW Unavailable [phone] Ashley Romero SHEAR SETTER Unavailable India Starr CHW Unavailable [phone] Lewis Chiu DO Unavailable [phone] Encounter Details Date Type Department Care Team (Late st Contact Info) Description 09/20/2018 [facility] [address] [place] [address] Jatin Pugh MD [facility] [address] [facility] [address] [place] [address] Pre-operative laboratory examination (Primary Dx) Social History Tobacco Use Types Packs/Day Years Used Date Smoking Tobacco: Every Day Cigarettes 0.5 39 Smokeless Tobacco: Never Comments:2 ppd smoker Alcohol Use Standard Drinks/Week Comments Yes 4 (1 standard drink = 0.6 oz pur e alcohol) Occas Sex and Gender Information Value Date Recorded Sex Assigned at Not on file Legal Sex Male 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 Gender Identity Not on file Sexual Orientation Not on file documented as of this encounter Plan of Treatment Not on file documented as of this encounter Visit Diagnoses Diagnosis Pre-operative laboratory examination- Primary Pre-procedural laboratory examination documented in this encounter Additional Health Concerns Infection Onset Date Last Indicated Resolved Time COVID-19 06/22/2021 06/22/2021 07/13/2021 11:3 9 PM CDT Assessment Noted Time PHQ-9 Depression Total Score: 8 06/26/20 18 7:17 AM CDT documented as of this encounter Care Teams Transformer Stock Clerk Relationship Specialty Start Date End Date [facility] [address] [facility] [place] [address] PCP - General Internal Medicine 08/19/18 10/01/18 Jovany Salguero MD [address] [place], [place] [address] PCP - General Internal Medicine 10/02/18 Kelsy Samayoa APRN CHAUFFEUR PCP - Assigned PCP 10/06/18 01/28/19 Blanquita Lindsey APRN CHAUFFEUR [address] [place], [place] [address] PCP - Assigned PCP 03/17/18 10/05/18 Daniela Bledsoe [facility] Centrifugal Wax Molder 10/03/18 01/30/19 Kelsy Samayoa APRN CHAUFFEUR Assigned PCP 10/06/18 06/28/19 Jovany Salguero MD [address] [place], [place] [address] Assigned PCP 06/29/19 08/23/19 Kelsy Samayoa APRN CHAUFFEUR Assigned PCP 08/24/19 09/27/19 Judy Mcpherson MD [address] [address] Assigned PCP 09/28/19 10/11/19 Kelsy Samayoa APRN CNP Assigned PCP 10/12/19 09/04/20 Jovany Salguero MD [address] [place] [address] Assigned PCP 09/05/20 [place] [address] [address] Assigned Musculoskeletal Provider 09/17/20 12/24/21 Janki Ortiz PA-C [address] [place] [address] [address] [place] [address] Physician Herpetologist Dermatology 09/29/21 Gera Rowley PA-C [address] [place] [address] Assigned Musculoskeletal Provider 07/29/22 10/13/22 [place] [address] [address] Assigned Musculoskeletal Provider 10/14/22 11/10/22 Didi Villarreal MD ORTHOPAEDIC SURGERY [address] [place] [address] 371884 Assigned Musculoskeletal Provider 11/11/22 02/16/23 Gera Rowley PA-C [address] [facility] [address] [place], [place] [address] Assigned Musculoskeletal Provider 02/17/23 05/04/23 Jovany Salguero MD [address] [place] [address] Assigned Pain Medication Provider 02/24/23 06/22/23 [place] [address] [place] [address] Assigned Musculoskeletal Provider 05/05/23 11/16/24 Abraham Gutierres MD [address] [place] [address] Assigned Neuroscience Provider 05/05/23 12/19/23 [place] [address] [place] [address] Assigned Pain Medication Provider 06/23/23 07/13/23 Jovany Salguero MD [address] [place] [address] Assigned Pain Medication Provider 07/14/23 Tawanna Davis, [facility] Lead Centrifugal Wax Molder Retread Supervisor - Clinical 12/17/23 02/29/24 Gera Rowley PA-C [address] [place] [address] [place] [address] Assigned Neuroscience Provider 12/20/23 02/07/24 Abraham Gutierres MD [address] [place] [address] Assigned Neuroscience Provider 02/08/24 11/16/24 [place] [address] [place] [address] Nurse Practitioner Nurse Practitioner 02/14/24 Denise Keys, RADIOLOGY ASST [address] [place] [address] Lead Centrifugal Wax Molder Primary Care - CC 02/29/2405/09 Harmony Bowden, [facility] Community Health Worker 03/26/2406/12 Ashley Romero, [facility] Lead Centrifugal Wax Molder 05/09/24 India Starr [facility] Community Health Worker 06/12/2412/24 [place] [address] [place] [address] Assigned Musculoskeletal Provider 11/17/24 documented as of this encounter
--- OUTSIDE RECORDS SUMMARY | 2025-01-23 19:39 | XMS_ITS | Encounter Summary ---
Author Organization [place] Address [address] [facility] [place] [address] Care Team Providers Care Intramural Director Name Role Phone Jovany Salguero MD Primary Care Provider Jovany Salguero MD Unavailable Janki OrtizC Unavailable Jovany Salguero MD Unavailable [phone] Yisel Soliman NP Unavailable Ashley Romero REFERRAL COORDINATOR Unavailable India Starr CHEd Unavailable Lewis Chiu DO Unavailable [phone] Encounter Details Date Type Department Care Team (Late st Contact Info) Description 12/22/2024 Orders Only (auto-released) [facility] [address] [place] [address] Jenni Robles, DRYING MACHINE TENDER [address] [place] [address] Screening for colon cancer Social History Tobacco Use Types Packs/Day Years [...] than three times a week 02/05/2024 Attends [employer] Not on file 02/04 Active Member of Clubs or Organizations Not on f ile 02/05/2024 Attends Club or Organization Meetings Not on jasiel e 02/05/2024 Marital Status Not on file 02/05/2024 PHQ-2 Answer Date Recorded PHQ-2 Score 3 12/22/2024 [facility] - Occupational Stress [...] on file Legal Sex Male 3:07 AM TIMBER SIZER Gender Identity Not on file Sexual Orientation Not on file documented as of this encounter Plan of Treatment Not on file documented as of this encounter Goals Goal Patient Goal Type Associated Problems Recent Progress Patient-Stated? Author Create an action plan to increase financial stability Care Plan Patient expresses financial resource strain 60%( 12:56 PM TIMBER SIZER) No Tawanna Davis, [facility] Note: Barriers: fixed/limited income Strengths: family support Patient expressed understanding of goal: yes Action steps to achieve this goal: I will utilize [email or web address] (Completed) I will work with Financial Resource Worker regarding my outstanding medical bills and get assistance from [facility]. (Completed) I will work with financial resource worker on certain pops [place] application and [place] benefits (Pending) I will work with Financial Resource Worker to reinstate my [facility] benefits and transfer them to [place] to [facility] (01/09: In Progress - pt stated that they transferred and he recently filled out paperwork and sent it back into the [facility] and is waiting on a return call/update) I will continue to outreach to care coordination as needed for additional resources or supports. (Ongoing) documented as of this encounter Procedures Procedure Name Priority Date/Time Associated Diagnosis Comments VIRGIL([employer]) Routine 01/02/2025 9:00 AM TIMBER SIZER Screening for colon cancer documented in this encounter Results * COLOGUATERENCE([employer]) (01/02/2025 9:00 AM TIMBER SIZER) COLOGUARD-ABSTRACT Negative Negative 2024 2:59 AM TIMBER SIZER [facility] (CLIA #:[id number]) Comment: NEGATIVE TEST RESULT. A negative Cologuard [...] (Gino Tobar al, N Engl J Med 2014;370(14):7510-4147) The normal value (reference range) for this assay is negative. COLOGUARD RE-SCREENING RECOMMENDATION: Periodic colorectal cancer screening is an important part of preventive healthcare for asymptomatic individuals at average risk for colorectal cancer. Following a negative Cologuard result, the [employer] [place] [employer] and U.S. Multi-Society Task Force screening guidelines recommend a Cologuard re-screening interval of 3 years. References: [employer] [place] [employer] Guideline for Colorectal Cancer Screening: https://www.cancer.org/cancer/luzoe-diprlm-dysize/arcsoqjls-tkjbfoxnn-zucqhvp/ac s-rec ommendations.html.; Giovanni DK, Rosina CR, Kiko MelloK, Colorectal Cancer Screening: Recommendations for Physicians and Patients from the U.S. Multi-Society Task Force on Colorectal Cancer Screening , Am J Gastroenterology 2017; 112:1051-0779. TEST DESCRIPTION: Composite algorithmic analysis of stool [...] (Gino Tobar al, N Engl J Med 2014;370(14):8409-5624.) Cologuard may produce a false negative or false positive result (no colorectal cancer or precancerous polyp present at colonoscopy follow up). A negative Cologuard test result does not guarantee the absence of CRC or advanced adenoma (pre-cancer). The current Cologuard screening interval is every 3 years. ([employer] [place] [employer] Society and U.S. Multi-Society Task Force). Cologuard performance data in a 10,000 patient pivotal study using colonoscopy as the reference method can be accessed at the following location: www.[employer]Z2/results. Additional description of the Cologuard test process, warnings and precautions can be found at www.[employer].com. Stool specimen (specimen) 01/02/2025 9:00 AM TIMBER SIZER 01/03/2025 1:26 PM TIMBER SIZER Jenni Robles [facility] Final Result [facility] [address] [address], [facility] [phone] [facility] (CLIA #:[id number]) [address] [address] documented in this encounter Visit Diagnoses Diagnosis Screening for colon cancer Special screening for malignant neoplasms, colon documented in this encounter Additional Health Concerns Active Problems Noted Date Diagnosed Date Patient expresses financial resource strain 11/27 Assessment Noted Time PHQ-9 Depression Total Score: 9 12/22/19 25 10:48 AM TIMBER SIZER documented as of this encounter Care Teams Intramural Director Relationship Specialty Start Date End Date Jovany Salguero MD [address] [place] [address] PCP - General Internal Medicine 10/02/18 Jovany Salguero MD [address] [place] [address] Assigned PCP 09/05/20 Janki Ortiz PA-C [address] [place] [address] [address] [place] [address] [id number] Physician Acoustical Logging Engineer Dermatology 09/29/21 Jovany Salguero MD [address] [place] [address] Assigned Pain Medication Provider 07/14/23 [place] [address] [place] [address] Nurse Practitioner Nurse Practitioner 02/14/24 Ashley Romero, [facility] Lead Wardrobe Consultant 05/09/24 India Starr CHW Community Health Worker 06/12/2412/24 [place] [address] [place] [place] [address] Assigned Musculoskeletal Provider 11/17/24 documented as of this encounter
--- OUTSIDE RECORDS SUMMARY | 2025-01-23 19:39 | XMS_ITS | Encounter Summary ---
Author Organization [place] Address [address] [place] [address] Care Team Providers Care Director Sales And Trade Marketing Name Role Phone [facility] Primary Care Provider Jovany Salguero MD Primary Care Provider [phone] Daniela Bledsoe Unavailable Unavai Kelsy Bryson APRN FOOD CASHIER Unavailable Un available Blanquita Lindsey APRN FOOD CASHIER Unavailable [phone] Kelsy Samayoa FUR CUTTING MACHINE OPERATOR FOOD CASHIER Unavailable Un available Jovany Salguero MD Unavailable [phone] Kelsy Samayoa APRN FOOD CASHIER Unavailable Un available Judy Mcpherson MD Unavailable [phone] Kelsy Samayoa APRN FOOD CASHIER Unavailable Un available Jovany Salguero MD Unavailable [phone] Bonifacio Bender MD Unavailable [phone] Janki Ortiz PA-C Unavailable [phone] Gera Rowley PA-C Unavailable [phone] Bonifacio Bender MD Unavailable [phone] Didi Villarreal MD Unavailable [phone] Gera Rowley PA-C Unavailable [phone] Jovany Salguero MD Unavailable Cheko Lyosn MD Unavailable Abraham Gutierres MD Unavailable Nereyda Saleem MD Unavailable [phone] Jovany Salguero MD Unavailable Ryan Tawanna M GRINDER SET UP OPERATOR GEAR TOOL Unavailable Gera Rowley PA-C Unavailable [phone] Abraham Gutierres MD Unavailable Yisel Soliman OIL DISTRIBUTOR TENDER Unavailable Denise Keys PRODUCTION BROACHING MACHINE OPERATOR Unavailable [phone] Harmony Bowden CHW Unavailable [phone] Ashley Romero GRINDER SET UP OPERATOR GEAR TOOL Unavailable India Starr CHW Unavailable [phone] Lewis Chiu DO Unavailable [phone] Reason for Visit * Reason Onset Date Comments other 09/12/2018 Medication refil l Encounter Details Date Type Department Care Team (Late st Contact Info) Description 09/12/2018 Telephone [facility] Neuro[facility] Clinic [address] [place] [address] Jatin Pugh MD [facility] ORTHOP[facility]ICS [address] [place] [address] [place] [address] other (Medication refill) Social History Tobacco Use Types Packs/Day Years Used Date Smoking Tobacco: Every Day Cigarettes 2 39 Smokeless Tobacco: Never Comments:2 ppd smoker Alcohol Use Standard Drinks/Week Comments Yes 4 (1 standard drink = 0.6 oz pur e alcohol) every night 4 can of beer Sex and Gender Information Value Date Recorded Sex Assigned at Not on file Legal Sex Male 3:07 AM NEWS CORRESPONDENT Gender Identity Not on file Sexual Orientation Not on file documented as of this encounter Miscellaneous Notes * Telephone Encounter - Mary Pitts RN - 09/12/2018 2:33 PM CDT Informed patient that per Cherelle ACHARYA she recommends that patient follows up with PCP as we do not manage medication * Telephone Encounter - Mary Pitts RN - 09/12/2018 1:07 PM CDT Patient is calling and reporting constant 08/05 neck and left shoulder pain. He is requesting a refill on the oxycodone that was prescribed by his PCP on 09/06 for # 30. I explained that we usually only prescribe pain medications to our post surgical patients for a short time after surgery. I advised patient to use OTC pain relievers, ice/heat or he can contact his PCP for a refill. Patient statesthat OTC and ice/heat doesn't help with his pain. He also tells me that his PCP told him that they would not fill again and that we are managing this now. Will forward a message to the care team for review. * Telephone Encounter - Chico Agarwal - 09/12/2018 10:24 AM CDT REASON FOR CALL: Pt is not scheduled for f/u w/Dr. Pugh until 09/24. He is wanting for a medication refill to last until appt date. documented in this encounter Plan of Treatment Not on file documented as of this encounter Visit Diagnoses Not on filedocumented in this encounter Additional Health Concerns Infection Onset Date Last Indicated Resolved Time COVID-19 06/22/2021 06/22/2021 07/13/2021 11:3 9 PM CDT Assessment Noted Time PHQ-9 Depression Total Score: 8 06/26/20 18 7:17 AM CDT documented as of this encounter Care Teams Director Sales And Trade Marketing Relationship Specialty Start Date End Date Clinic - [facility] [address] [facility] [address] PCP - General Internal Medicine 08/19/18 10/01/18 Jovany Salguero MD [address] [place] [address] PCP - General Internal Medicine 10/02/18 Kelsy Samayoa APRN FOOD CASHIER PCP - Assigned PCP 10/06/18 01/28/19 Blanquita Lindsey APRN FOOD CASHIER [address] [place] [address] PCP - Assigned PCP 03/17/18 10/05/18 Daniela Bledsoe [facility] Warehouse Distribution Manager 10/03/18 01/30/19 Kelsy Samayoa APRN FOOD CASHIER Assigned PCP 10/06/18 06/28/19 Jovany Salguero MD [address] [place] [address] Assigned PCP 06/29/19 08/23/19 Kelsy Samayoa APRN FOOD CASHIER Assigned PCP 08/24/19 09/27/19 Judy Mcpherson MD [address] [address] Assigned PCP 09/28/19 10/11/19 Kelsy Samayoa APRN FOOD CASHIER Assigned PCP 10/12/19 09/04/20 Jovany Salguero MD [address] [place] [address] Assigned PCP 09/05/20 [place] [address] [facility] [address] [place] [address] Assigned Musculoskeletal Provider 09/17/20 12/24/21 Janki Ortiz PA-C [address] [place] [address] [address] [place] [address] Physician Pest Control Worker Helper Dermatology 09/29/21 Gera Rowley PA-C [address] [address] Assigned Musculoskeletal Provider 07/29/22 10/13/22 [place] [address] [address] Assigned Musculoskeletal Provider 10/14/22 11/10/22 Didi Villarreal MD ORTHOPAEDIC SURGERY [address] [place] [address] Assigned Musculoskeletal Provider 11/11/22 02/16/23 Gera Rowley PA-C [address] [place] [address] Assigned Musculoskeletal Provider 02/17/23 05/04/23 Jovany Salguero MD [address] [place] [address] Assigned Pain Medication Provider 02/24/23 06/22/23 [place] [address] [place] [facility] [address] [place] [address] Assigned Musculoskeletal Provider 05/05/23 11/16/24 Abraham Gutierres MD [address] [facility] [address] [place] [address] Assigned Neuroscience Provider 05/05/23 12/19/23 [place] [address] [place] [address] Assigned Pain Medication Provider 06/23/23 07/13/23 Jovany Salguero MD [address] [place] [address] Assigned Pain Medication Provider 07/14/23 Tawanna Davis, [facility] Lead Warehouse Distribution Manager Weight Loss Counselor - Clinical 12/17/23 02/29/24 Gera Rowley PA-C [address] [facility] [address] [place] [address] Assigned Neuroscience Provider 12/20/23 02/07/24 Abraham Gutierres MD [address] [facility] [address] [place] [address] Assigned Neuroscience Provider 02/08/24 11/16/24 [place] [address] [address] [place] [address] Nurse Practitioner Nurse Practitioner 02/14/24 Denise Keys, PRODUCTION BROACHING MACHINE OPERATOR [address] [place] [address] Lead Warehouse Distribution Manager Primary Care - CC 02/29/2405/09 Harmony Bowden, W Community Health Worker 03/26/2406/12 Ashley Romero, [facility] Lead Warehouse Distribution Manager 05/09/24 India Starr [facility] Community Health Worker 06/12/2412/24 [place] [address] [address], [address] [address] Assigned Musculoskeletal Provider 11/17/24 documented as of this encounter
--- OUTSIDE RECORDS SUMMARY | 2025-01-23 19:39 | XMS_ITS | Encounter Summary ---
Author Organization [place] Address [address] [facility] [place] [address] Care Team Providers Care Dope Mixer Name Role Phone [facility] Primary Care Provider Jovany Salguero MD Primary Care Provider [phone] Daniela Bledsoe Unavailable Unavai Kelsy Bryson APRN STEWARD/STEWARDESS SMOKE ROOM Unavailable Un available Blanquita Lindsey APRN STEWARD/STEWARDESS SMOKE ROOM Unavailable + [phone] Kelsy Samayoa SHACKLER STEWARD/STEWARDESS SMOKE ROOM Unavailable Un available Jovany Salguero MD Unavailable [phone] Kelsy Samayoa APRN STEWARD/STEWARDESS SMOKE ROOM Unavailable Un available Judy Mcpherson MD Unavailable [phone] Kelsy Samayoa APRN STEWARD/STEWARDESS SMOKE ROOM Unavailable Un available Jovany Salguero MD Unavailable [phone] Bonifacio Bender MD Unavailable [phone] Janki Ortiz PA-C Unavailable [phone] Gera Rowley PA-C Unavailable [phone] Bonifacio Bender MD Unavailable [phone] Didi Villarreal MD Unavailable [phone] Gera RowleyC Unavailable Jovany Salguero MD Unavailable Cheko Lyons MD Unavailable Abraham Gutierres MD Unavailable Nereyda Saleem MD Unavailable [phone] Jovany Salguero MD Unavailable Ryan Tawanna M FLEET MECHANIC Unavailable Gera RowleyC Unavailable Abraham Gutierres MD Unavailable Yisel Soliman UNIFORM FORCE CAPTAIN Unavailable Denise Keys DERRICK ENGINEER Unavailable [phone] Harmony Bowden CHW Unavailable [phone] Ashley Romero FLEET MECHANIC Unavailable India Starr CHW Unavailable [phone] Lewis Chiu DO Unavailable [phone] Reason for Visit * Reason Onset Date Comments Results 09/24/2018 Encounter Details Date Type Department Care Team (Late st Contact Info) Description 09/24/2018 Telephone [facility] [address] [place] [phone] Kelsy Samayoa APRN STEWARD/STEWARDESS SMOKE ROOM Results Social History Tobacco Use Types Packs/Day Years Used Date Smoking Tobacco: Every Day Cigarettes 0.5 39 Smokeless Tobacco: Never Comments:2 ppd smoker Alcohol Use Standard Drinks/Week Comments Yes 4 (1 standard drink = 0.6 oz pur e alcohol) Occas Sex and Gender Information Value Date Recorded Sex Assigned at Not on file 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 Low's office will make sure Dr. Pugh is aware of WBC. They are with [facility] pre-op from [facility]. They will contact patient if needed. Sanaz says the will send a message to Kaushal Samayoa in [facility] only if needed. * Telephone Encounter - Kelsy Samayoa NP - 09/24/2018 3:49 PM CDT Please call and then fax abnormal preop WBC and other labs to Dr Pugh office. Scheduled for C3-6 anterior cervical fusion 09/26/18. Kelsy Samayoa CNP documented in this encounter Plan of Treatment Not on file documented as of this encounter Visit Diagnoses Not on filedocumented in this encounter Additional Health Concerns Infection Onset Date Last Indicated Resolved Time COVID-19 06/22/2021 06/22/2021 07/13/2021 11:3 9 PM CDT Assessment Noted Time PHQ-9 Depression Total Score: 8 06/26/20 18 7:17 AM CDT documented as of this encounter Care Teams Dope Mixer Relationship Specialty Start Date End Date Clinic - [facility] [address] [place], [place] [address] PCP - General Internal Medicine 08/19/18 10/01/18 Jovany Salguero MD [address] [place], [place] [address]8967 PCP - General Internal Medicine 10/02/18 Kelsy Samayoa APRN STEWARD/STEWARDESS SMOKE ROOM PCP - Assigned PCP 10/06/18 01/28/19 Blanquita Lindsey APRN STEWARD/STEWARDESS SMOKE ROOM [address] [place], [place] [address] PCP - Assigned PCP 03/17/18 10/05/18 Daniela Bledsoe LINUX KERNEL ENGINEER Clinic Acoustical Material Worker 10/03/18 01/30/19 Kelsy Samayoa APRN STEWARD/STEWARDESS SMOKE ROOM Assigned PCP 10/06/18 06/28/19 Jovany Salguero MD [address] [place] [address] Assigned PCP 06/29/19 08/23/19 Kelsy Samayoa APRN STEWARD/STEWARDESS SMOKE ROOM Assigned PCP 08/24/19 09/27/19 Judy Mcpherson MD [address] [facility] [address] [place] [address] Assigned PCP 09/28/19 10/11/19 Kelsy Samayoa APRN STEWARD/STEWARDESS SMOKE ROOM Assigned PCP 10/12/19 09/04/20 Jovany Salguero MD [address] [place], [place] [address] Assigned PCP 09/05/20 [place] [address] [facility] [address] [place], [place] [address] Assigned Musculoskeletal Provider 09/17/20 12/24/21 Janki Ortiz PA-C [address] [place] [address] [place] [address] [address] Physician Typewriters Functional Tester Dermatology 09/29/21 Gera Rowley PA-C [address] [facility] [address] [place] [address] Assigned Musculoskeletal Provider 07/29/22 10/13/22 [place] [address] [facility] [address] [place] [address] Assigned Musculoskeletal Provider 10/14/22 11/10/22 Didi Villarreal MD ORTHOPAEDIC SURGERY [facility] [address] [address]70[address] Assigned Musculoskeletal Provider 11/11/22 02/16/23 Gera Rowley PA-C [address] [address] Assigned Musculoskeletal Provider 02/17/23 05/04/23 Jovany Salguero MD [address] [place] [address] Assigned Pain Medication Provider 02/24/23 06/22/23 [place] [address] [address] Assigned Musculoskeletal Provider 05/05/23 11/16/24 Abraham Gutierres MD [address] [place] [address] Assigned Neuroscience Provider 05/05/23 12/19/23 [place] [address] [place] [address] Assigned Pain Medication Provider 06/23/23 07/13/23 Jovany Salguero MD [address] [place] [address] Assigned Pain Medication Provider 07/14/23 Tawanna Davis, [facility] Lead Acoustical Material Worker Web Content & Social Media Manager - Clinical 12/17/23 02/29/24 Gera Rowley PA-C [address] [facility] [address] [place] [address] Assigned Neuroscience Provider 12/20/23 02/07/24 Abraham Gutierres MD [address] [place] [address] Assigned Neuroscience Provider 02/08/24 11/16/24 [place] [address] [place] [address] Nurse Practitioner Nurse Practitioner 02/14/24 Denise Keys, DERRICK ENGINEER [address] [place] [address] Lead Acoustical Material Worker Primary Care - CC 02/29/2405/09 Harmony Bowden [facility] Community Health Worker 03/26/2406/12 Ashley Romero, [facility] Lead Acoustical Material Worker 05/09/24 India Starr [facility] Community Health Worker 06/12/2412/24 [place] [address] [address] [facility] [address] [place] [address] Assigned Musculoskeletal Provider 11/17/24 documented as of this encounter
--- OUTSIDE RECORDS SUMMARY | 2025-01-23 19:39 | XMS_ITS | Encounter Summary ---
Author Organization [place] Address [address] [place] [address] Care Team Providers Care Program Director/Air Personality Name Role Phone [facility] Primary Care Provider Jovany Salguero MD Primary Care Provider [phone] Daniela Bledsoe Unavailable Unavai Kelsy Bryson APRN TOOL ENGINEER Unavailable Un available Blanquita Lindsey APRN TOOL ENGINEER Unavailable + [phone] Kelsy Samayoa DYNAMITE PACKING MACHINE OPERATOR TOOL ENGINEER Unavailable Un available Jovany Salguero MD Unavailable [phone] Kelsy Samayoa APRN TOOL ENGINEER Unavailable Un available Judy Mcpherson MD Unavailable [phone] Kelsy Samayoa APRN TOOL ENGINEER Unavailable Un available Jovany Salguero MD Unavailable [phone] Bonifacio Bender MD Unavailable [phone] Janki Ortiz PA-C Unavailable [phone] Gera Rowley PA-C Unavailable [phone] Bonifacio Bedner MD Unavailable [phone] Didi Villarreal MD Unavailable [phone] Gera Rowley PA-C Unavailable [phone] Jovany Salguero MD Unavailable Cheko Lyons MD Unavailable Abraham Gutierres MD Unavailable Nereyda Saleem MD Unavailable [phone] Jovany Salguero MD Unavailable Ryan, Tawanna Mercedez DRILL RIG OPERATOR Unavailable [phone] Gera Rowley PA-C Unavailable [phone] Abraham Gutierres MD Unavailable Yisel Soliman WRINKLE CHASER Unavailable Ludmila Denise BLENDER MACHINE OPERATOR Unavailable [phone] Harmony Bowden CHW Unavailable [phone] Ashley Romero DRILL RIG OPERATOR Unavailable India Starr CHW Unavailable [phone] Lewis Chiu DO Unavailable [phone] Encounter Details Date Type Department Care Team (Late st Contact Info) Description 09/20/2018 [facility] [address] [place] [phone] Jatin Pugh MD [facility] [address] [facility] [address] [place] [address] Social History Tobacco Use Types Packs/Day Years Used Date Smoking Tobacco: Every Day Cigarettes 0.5 39 Smokeless Tobacco: Never Comments:2 ppd smoker Alcohol Use Standard Drinks/Week Comments Yes 4 (1 standard drink = 0.6 oz pur e alcohol) Occas Sex and Gender Information Value Date Recorded Sex Assigned at Not on file 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 Gender Identity Not on file Sexual Orientation [...] documented as of this encounter Care Teams Program Director/Air Personality Relationship Specialty Start Date End Date Clinic - [facility] [address] [facility] [place], [place] [address] PCP - General Internal Medicine 08/19/18 10/01/18 Jovany Salguero MD [address] [place], [place] [address] PCP - General Internal Medicine 10/02/18 Kelsy Samayoa APRN TOOL ENGINEER PCP - Assigned PCP 10/06/18 01/28/19 Blanquita Lindsey APRN TOOL ENGINEER [address] [place], [place] [address] PCP - Assigned PCP 03/17/18 10/05/18 Daniela Bledsoe BOAT AND PLANT UTILITY SUPERVISOR Clinic Surfboard Maker 10/03/18 01/30/19 Kelsy Samayoa APRN TOOL ENGINEER Assigned PCP 10/06/18 06/28/19 Jovany Salguero MD [address] [place] [address] Assigned PCP 06/29/19 08/23/19 Kelsy Samayoa APRN TOOL ENGINEER Assigned PCP 08/24/19 09/27/19 Judy Mcpherson MD [address] 619787 Assigned PCP 09/28/19 10/11/19 Yao Kelsyelijah Gaytan, DYNAMITE PACKING MACHINE OPERATOR TOOL ENGINEER Assigned PCP 10/12/19 09/04/20 Jovany Salguero MD [address] [place] [address] Assigned PCP 09/05/20 [place]ender [place] [id number] [place] [address] Assigned Musculoskeletal Provider 09/17/20 12/24/21 Janki Ortiz PA-C [address] [place] [address] Physician Cloth Covered Helmet Puller Dermatology 09/29/21 Gera Rowley PA-C [address] [address] Assigned Musculoskeletal Provider 07/29/22 10/13/22 Bonifacio Bender MD [address] [place] [address] Assigned Musculoskeletal Provider 10/14/22 11/10/22 Didi Villarreal MD ORTHOPAEDIC SURGERY [address] [place] [address] Assigned Musculoskeletal Provider 11/11/22 02/16/23 Gera Rowley PA-C [address] [facility] [address] [place] [address] Assigned Musculoskeletal Provider 02/17/23 05/04/23 Jovany Salguero MD [address] [place] [address] Assigned Pain Medication Provider 02/24/23 06/22/23 [place] [address] [facility] [address] Assigned Musculoskeletal Provider 05/05/23 11/16/24 Abraham Gutierres MD [address] [place] [address]32735 Assigned Neuroscience Provider 05/05/23 12/19/23 [place] [address] [place] [address] Assigned Pain Medication Provider 06/23/23 07/13/23 Jovany Salguero MD [address] [place] [address] Assigned Pain Medication Provider 07/14/23 Tawanna Davis, [facility] Lead Surfboard Maker Superintendent Refuse Disposal - Clinical 12/17/23 02/29/24 Gera Rowley PA-C [address] [facility] [place] [address] Assigned Neuroscience Provider 12/20/23 02/07/24 Abraham Gutierres MD [address] [place] [address] Assigned Neuroscience Provider 02/08/24 11/16/24 [place] [address] [place] [address] Nurse Practitioner Nurse Practitioner 02/14/24 Denise Keys, BLENDER MACHINE OPERATOR [address] [facility] [place] [address] Lead Surfboard Maker Primary Care - CC 02/29/2405/09 Harmony Bowden, [facility] Community Health Worker 03/26/2406/12 Ashley Romero, [facility] Lead Surfboard Maker 05/09/24 India Starr [facility] Community Health Worker 06/12/2412/24 [place] [address] [address] [place] [address] [place] [address] Assigned Musculoskeletal Provider 11/17/24 documented as of this encounter
--- OUTSIDE RECORDS SUMMARY | 2025-01-23 19:39 | XMS_ITS | Encounter Summary ---
Author Organization [place] Address [address] [facility] [address] Care Team Providers Care Critical Care Unit Nurse Name Role Phone Jovany Salguero MD Primary Care Provider [phone] Jovany Salguero MD Unavailable Janki Ortiz PA-C Unavailable Jovany Salguero MD Unavailable Yisel Soliman NP Unavailable [phone] Ashley Romero HIGH RISK CASE MANAGER Unavailable Lewis Chiu DO Unavailable [phone] Encounter Details Date Type Department Care Team (Late st Contact Info) Description 01/20/2025 Telephone [facility] [address] [place] [address] Jovany Salguero MD [address] [place] [address] Social History Tobacco Use Types Packs/Day Years [...] than three times a week 02/05/2024 Attends Protestant Services Not on file 02/04 Active Member of Clubs or Organizations Not on f ile 02/05/2024 Attends Club or Organization Meetings Not on jasiel e 02/05/2024 Marital Status Not on file 02/05/2024 PHQ-2 Answer Date Recorded PHQ-2 Score 3 12/22/2024 [facility] - Occupational Stress [...] in an abandoned building, in an overnight usp, or couch-surfing.) Yes 02/05/2024 Are you worried [...] on file 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 NESS INSPECTOR documented in this encounter Plan of Treatment Not on file documented as of this encounter Goals Goal Patient Goal Type Associated Problems Recent Progress Patient-Stated? Author Create an action plan to increase financial stability Care Plan Patient expresses financial resource strain 60%( 12:56 PM HARDNESS INSPECTOR) No Tawanna Davis LICSW Note: Barriers: fixed/limited income Strengths: family support Patient expressed understanding of goal: yes Action steps to achieve this goal: I will utilize [employer] (Completed) I will work with Financial Resource Worker regarding my outstanding medical bills and get assistance from [facility]. (Completed) I will work with financial resource worker on certain pops [place] application and [place] benefits (Pending) I will work with Financial Resource Worker to rein[place] benefits and transfer them to [place] to [facility] (01/09: In Progress - pt stated that they transferred and he recently filled out paperwork and sent it back into the [facility] and is waiting on a return call/update) [...] review housing resources sent to me by medicare compliance auditor and reach out to those I'm most interested in (11/08: New) 2. I will contact medicare compliance auditor if questions about the resources sent or needing help to initiate contact with those I'm interested in (11/08: New) 3. I will contact medicare compliance auditor if needing additional resources and information (11/08: New) Improve management of mental health symptoms and establish with mental health/psychosocia l supports Care Plan Mental Health Symptoms Need Improvement No Ashley Romero [facility] Note: Barriers: Limited support, emotionally [...] will review mental health resources sent by medicare compliance auditor and consider establishing with a mental health provider (01/09: New) 3. I will contact the medicare compliance auditor if needing assistance with scheduling/coordinating(01/09: New) 4. I will check with my insurance to verify my insurance benefits/coverage (01/09: New) 5. I will contact the medicare compliance auditor if and when needing additional resources and support documented as of this encounter Visit Diagnoses Not on filedocumented in this encounter Additional Health Concerns Active Problems Noted Date Diagnosed Date Patient expresses financial resource strain 11/27 [place] LACK OF STABLE HOUSING 01/09/2025 Mental Health Symptoms Need Improvement 01/09/20 Assessment Noted Time PHQ-9 Depression Total Score: 9 12/22/19 25 10:48 AM HARDNESS INSPECTOR documented as of this encounter Care Teams Critical Care Unit Nurse Relationship Specialty Start Date End Date Jovany Salguero MD [address] [place] [address] PCP - General Internal Medicine 10/02/18 Jovany Salguero MD [address] [place] [address] Assigned PCP 09/05/20 Janki Ortiz PA-C [address] [place] [address] [address] [facility] [place] [address] Physician Physician Obstetrician Dermatology 09/29/21 Jovany Salguero MD [address] [place], [place] [address] Assigned Pain Medication Provider 07/14/23 [place] [address] [address] [place] [address] Nurse Practitioner Nurse Practitioner 02/14/24 Ashley Romero, [facility] Lead Guillotine Trimmer 05/09/24 [place] [address] [place] [address] [place] [address] Assigned Musculoskeletal Provider 11/17/24 documented as of this encounter
--- OUTSIDE RECORDS SUMMARY | 2025-01-23 19:39 | XMS_ITS | Encounter Summary ---
Author Organization [facility] Address [address] [facility] [place] [address] Care Team Providers Care Plastic Mixer Name Role Phone Judy Mcpherson MD Primary Care Provider [phone] [facility] Primary Care Provider Jovany Salguero MD Primary Care Provider [phone] Daniela Bledsoe Unavailable Unavai Kelsy Bryson MASTER CARPENTER INTELLIGENCE OFFICER Unavailable Un available Blanquita Lindsey MASTER CARPENTER INTELLIGENCE OFFICER Unavailable [phone] Kelsy Samayoa APRN INTELLIGENCE OFFICER Unavailable Un available Jovany Salguero MD Unavailable [phone] Kelsy Samayoa APRN INTELLIGENCE OFFICER Unavailable Un available Judy Mcpherson MD Unavailable [phone] Kelsy Samayoa APRN INTELLIGENCE OFFICER Unavailable Un available Jovany Salguero MD Unavailable [phone] Bonifacio Bender MD Unavailable [phone] Janki OrtizC Unavailable [phone] Gera RowleyC Unavailable [phone] Bonifacio Bender MD Unavailable [phone] Didi Villarreal MD Unavailable [phone] Gera Rowley PA-C Unavailable Jovany Salguero MD Unavailable Cheko Lyons MD Unavailable Abraham Gutierres MD Unavailable Nereyda Saleem MD Unavailable Jvoany Salguero MD Unavailable Ryan, Tawanna Mercedez SENIOR NET DEVELOPER Unavailable Gera Rowley PA-C Unavailable Abraham Gutierres MD Unavailable Yisel Soliman ANIMAL HUSBANDRY PROFESSOR Unavailable Denise Keys STRIKER OUT Unavailable [phone] Harmony Bowden CHW Unavailable [phone] Ashley Romero SENIOR NET DEVELOPER Unavailable India Starr CHW Unavailable Lewis Chiu DO Unavailable [phone] Reason for Visit * Reason Onset Date Comments Refill Request 03/19/2013 Ibuprofen Encounter Details Date Type Department Care Team (Late st Contact Info) Description 03/19/[address] 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 Med instructions MD los approval needed. Last OV 01/08, last cr normal 07/07. documented in this encounter Plan of Treatment Not on file documented as of this encounter Visit Diagnoses Diagnosis Joint pain- Primary Pain in joint, site unspecified documented in this encounter Additional Health Concerns Infection Onset Date Last Indicated Resolved Time COVID-19 06/22/2021 06/22/2021 07/13/2021 11:3 9 PM CDT documented as of this encounter Care Teams Plastic Mixer Relationship Specialty Start Date End Date Judy Mcpherson MD [address] [address] PCP - General Internal Medicine 12/25/14 08/18/18 [facility] [address] [place] [address] PCP - General Internal Medicine 08/19/18 10/01/18 Jovany Salguero MD [address] [place] [address] PCP - General Internal Medicine 10/02/18 Kelsy Samayoa APRN INTELLIGENCE OFFICER PCP - Assigned PCP 10/06/18 01/28/19 Blanquita Lindsey APRN INTELLIGENCE OFFICER [address] [place] [address] PCP - Assigned PCP 03/17/18 10/05/18 Daniela Bledsoe, METAL SASH SETTER Clinic Merchandise Team Manager 10/03/18 01/30/19 Kelsy Samayoa, MASTER CARPENTER INTELLIGENCE OFFICER Assigned PCP 10/06/18 06/28/19 Jovany Salguero MD [address] [place] [address] Assigned PCP 06/29/19 08/23/19 Kelsy Samayoa APRN INTELLIGENCE OFFICER Assigned PCP 08/24/19 09/27/19 Judy Mcpherson MD [address] [facility] [address] [place] [address] Assigned PCP 09/28/19 10/11/19 Kelsy Samayoa APRN INTELLIGENCE OFFICER Assigned PCP 10/12/19 09/04/20 Jovany Salguero MD [address] [place] [address] Assigned PCP 09/05/20 [place] [address] [facility] [address] [place] [address] Assigned Musculoskeletal Provider 09/17/20 12/24/21 Janki Ortiz PA-C [address] [place] [address] [place] [address] [place] [address] Physician Gem Technician Dermatology 09/29/21 Gera Rowley PA-C [address] [facility] [address] [place] [address] Assigned Musculoskeletal Provider 07/29/22 10/13/22 [place] [address] [facility] [address] [place], [place] [address] Assigned Musculoskeletal Provider 10/14/22 11/10/22 Didi Villarreal MD ORTHOPAEDIC SURGERY [address] [address] Assigned Musculoskeletal Provider 11/11/22 02/16/23 Gera Rowley PA-C [address] [address] Assigned Musculoskeletal Provider 02/17/23 05/04/23 Jovany Salguero MD [address] [place] [address] Assigned Pain Medication Provider 02/24/23 06/22/23 [place] [address] [address] Assigned Musculoskeletal Provider 05/05/23 11/16/24 Abraham Gutierres MD [address] [place] [address] Assigned Neuroscience Provider 05/05/23 12/19/23 [place] [address] [place] [address] Assigned Pain Medication Provider 06/23/23 07/13/23 Jovany Salguero MD [address] [place], [place] [address] Assigned Pain Medication Provider 07/14/23 Tawanna Davis, [facility] Lead Merchandise Team Manager Applications Engineering Manager - Clinical 12/17/23 02/29/24 Gera Rowley PA-C [address] [facility] [address] [place] [address] Assigned Neuroscience Provider 12/20/23 02/07/24 Abraham Gutierres MD [address] [place] [address]005 Assigned Neuroscience Provider 02/08/24 11/16/24 [place] [address] [place] [address] Nurse Practitioner Nurse Practitioner 02/14/24 Denise Keys, STRIKER OUT [address] [place] [address] Lead Merchandise Team Manager Primary Care - CC 02/29/2405/09 Harmony Bowden, [place] Community [facility] Worker 03/26/2406/12 Ashley Romero, [facility] Lead Merchandise Team Manager 05/09/24 India Starr [place] Community [facility] Worker 06/12/2412/24 [place] [address] [address] [place] [address] [place] [address] Assigned Musculoskeletal Provider 11/17/24 documented as of this encounter
[2025-01-23 19:53] LABS: Lactate* 1.2 mmol/L (0.5-1.9)
--- NOTE | 2025-01-23 19:54 | ED.GENADULT ---
HPI - General Adult General Chief complaint: Shortness of Breath/Dyspnea Stated complaint: RSV, nurses told him to come back Time Seen by Provider: 01/23/25 18:49 Source: patient Mode of arrival: ambulatory Limitations: no limitations History of Present Illness HPI narrative: 70-year-old male coming in today concerned about cough, dehydration. Patient was diagnosed with RSV earlier this week and feels like he is just getting worse. States that his cough is getting more aggressive and more productive. Unsure of whether or not he has had a fever at home at home but he does feel cold. He states that he is not eaten anything 6 days because he has no appetite. He states that he tries to drink but he vomits. He denies any diarrhea with states that he has not had any bowel movements and minimal urine output. He complains of feeling weak. He lives with his son and his family. Denies falling. States that he has a pressure across his chest and has had that for the last 6 days. Feels short of breath on and off. Complains of epigastric abdominal pain that comes and goes. Related Data Home Medications ?Medication ?Instructions ?Recorded ?Confirmed oxycodone 5 mg tablet mg 01/20/25 pantoprazole 40 mg tablet,delayed mg PO DAILY 01/20/25 release tizanidine 4 mg tablet mg 3XD 01/20/25 Allergies Allergy/AdvReac Type Severity Reaction Status Date / Time scopolamine Allergy Unknown Verified 01/20/25 12:01 Review of Systems Status of ROS: Reports: 10 or more systems reviewed and unremarkable except as noted in History and [facility] Pancreatic cancer ?C25.9 - Malignant neoplasm of pancreas, unspecified (ICD-10) Surgical History 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 Alert and oriented x3. Answers questions appropriately. Mood and affect are appropriate. Thoughts are goal oriented and rational. No tangential or magical thinking noted. Patient speaks in full sentences without needing to catch his breath. HEENT: Normocephalic atraumatic. Pupils are equally round reactive to light. Extraocular muscles are intact. Conjunctivae are moist without any icterus noted. Slightly dry mucous membranes. Posterior pharynx is normal. Neck is soft without any lymphadenopathy or thyromegaly. No masses are appreciated. Cardiovascular: Heart is regular rate and rhythm S1 and S2 are present without any murmurs. Lungs: Bilateral rales. Abdomen: Soft and nondistended with normal bowel sounds. Mild epigastric tenderness. Extremities: Bilateral lower extremities are without edema. Skin: Well perfused without any obvious rashes. Const: Vital Signs, click to edit/add: Vital Signs - 24 hr 01/23/25 18:40 Temperature 100.7 F H Pulse Rate [Pulse Oximeter] 74 Respiratory Rate 20 Blood Pressure [Ri ght Upper Arm] 161/89 H Pulse Oximetry 95 Oxygen Delivery Me thod Room Air Course Course ED Course: EKG, read by me, shows normal sinus rhythm with a pulse of 81. CBC unremarkable. Normal hemoglobin and hematocrit. Lactate is normal at 1.2. Negative for influenza and COVID. Chemistries are normal. LFTs are unremarkable. Normal troponin. Lipase is 12. Normal CK. UA shows mello colored urine with 4+ ketones and greater than 8 uro bilinogen. Blood Bilirubin levels are normal. Discussed these findings with , who stated that there is nothing for us to do at this time. Chest x-ray, read by me, does not show any evidence of pneumonia. Patient did receive a L of normal saline and Zofran while he was here. He did perk up in seemed to be doing better. He was sitting up in bed. After receiving Tylenol his temperature did go down. Vital Signs Vital signs: Initial Vital Signs Temperature 100.7 F H 01/23/25 18:40 Temperature Source Temporal Artery Scan 01/23/25 18:40 Pulse Rate 74 01/23/25 18:40 Pulse Rhythm Regular 01/23/25 18:40 Respiratory Rate 20 01/23/25 18:40 Blood Pressure 161/89 H 01/23/25 18:40 Blood Pressure Mean 113 H 01/23/25 18:40 Blood Pressure Position Sitting 01/23/25 18:40 Pulse Oximetry 95 01/23/25 18:40 Oxygen Delivery Method Room Air 01/23/25 18:40 Vital Signs Temperature 100.7 F H 01/23/25 18:40 Pulse Rate 74 01/23/25 18:40 Respiratory Rate 20 01/23/25 18:40 Blood Pressure 161/89 H 01/23/25 18:40 Pulse Oximetry 95 01/23/25 18:40 Oxygen Delivery Method Room Air 01/23/25 18:40 Temperature 100.7 F H 01/23/25 18:40 Pulse Rate 74 01/23/25 18:40 Respiratory Rate 20 01/23/25 18:40 Blood Pressure 161/89 H 01/23/25 18:40 Pulse Oximetry 95 01/23/25 18:40 Oxygen Delivery Method Room Air 01/23/25 18:40 Medications Administered Medications: Discontinued Medications Generic Name Dose Route Start Last Admin Trade Name Freq PRN Reason Stop Dose Admin Acetaminophen 650 mg 01/23/25 19:33 01/23/25 20:04 Acetaminophen 325 Mg Tablet PO 01/23/25 19:34 650 mg ONCE ONE Administration Sodium Chloride 1,000 mls @ 1,000 mls/hr 01/23/25 19:30 01/23/25 21:02 0.9 % Sodium Chloride 1000 Ml IV 01/23/25 20:29 Infused .Q1H YOSEF Infusion Ondansetron HCl 4 mg 01/23/25 19:24 01/23/25 20:04 Ondansetron 2 Mg/Ml Inj IVP 01/23/25 19:25 4 mg ONCE ONE Administration Medical Decision Making MDM Narrative Medical decision making narrative: 70-year-old male with RSV, nausea vomiting and mild dehydration. We discussed frequent small sips of fluids throughout the day. We discussed reasons for follow-up. Discussed acetaminophen use. Lab Data Lab results reviewed: Yes I reviewed the patient's lab results Labs: Lab Results 01/23/25 01/23/25 01/23/25 Range/Units 19:45 19:45 19:45 WBC 9.72 (4.50-11.00) K/uL RBC 4.70 (4.30-5.90) m/uL Hgb 13.6 (13.5-17.5) gm/dL Hct 40.9 (37.0-53.0) % MCV 87 (80-100) fL MCH 29 (26-34) pg MCHC 33 (32-36) gm/dL RDW Coeff of Chelsea 12.2 (11.5-15.5) % Plt Count 110 L (140-440) K/uL Neut % (Auto) 59.3 (42.0-72.0) % Lymph % (Auto) 33.2 (20-44) % Sandoval % (Auto) 7.1 (0.0-11.0) % Eos % (Auto) 0.1 (0.0-7.0) % Baso % (Auto) 0.2 (0.0-3.0) % Neut # (Auto) 5.76 (1.7-7.0) K/uL Lymph # (Auto) 3.23 H (0.90-2.90) K/uL Sandoval # (Auto) 0.70 (0.00-0.90) K/UL Eos # (Auto) 0.01 (0.00-0.50) K/uL Baso # (Auto) 0.02 (0.00-0.30) K/uL Abs Immat Gran (auto) 0.01 (0.00-0.30) K/uL Imm/Tot Granulo (auto) 0.1 % Sodium Cancelled 136 Potassium Cancelled 3.8 Chloride Cancelled Carbon Dioxide Anion Gap BUN Creatinine Estimated Creat Clear Estimated GFR Glucose Lactate (0.5-1.9) mmol/L Calcium Total Bilirubin (0.1-1.5) mg/dL Direct Bilirubin (0.0-0.5) mg/dL AST (12-35) U/L ALT (4-50) U/L Alkaline Phosphatase (40-150) U/L Total Creatine Kinase (54-186) U/L Troponin I (0.01-0.04) ng/mL Total Protein (6.0-8.3) g/dL Albumin (3.3-5.0) g/dL Lipase (23-300) U/L Urine Color (Yellow) Urine Appearance (Clear) Urine pH (5.0-8.5) Ur Specific Bunker (1.000-1.030) Urine Protein (Negative) Urine Glucose (UA) (Negative) Urine Ketones (Negative) Urine Blood (Negative) Urine Nitrite (Negative) Urine Bilirubin (Negative) Urine Urobilinogen (0.2-1.0) Ur Leukocyte Esterase (Negative) Urine RBC (0-2) Urine WBC (0-5) Ur Squamous Epith Cells (None-Few) Urine Bacteria (None) SARS-CoV-2 (PCR) (Negative) Influenza Type A (PCR) (Negative) Influenza Type B (PCR) (Negative) 01/23/25 01/23/25 01/23/25 Range/Units 19:45 19:45 19:45 WBC (4.50-11.00) K/uL RBC (4.30-5.90) m/uL Hgb (13.5-17.5) gm/dL Hct (37.0-53.0) % MCV (80-100) fL MCH (26-34) pg MCHC (32-36) gm/dL RDW Coeff of Chelsea (11.5-15.5) % Plt Count (140-440) K/uL Neut % (Auto) (42.0-72.0) % Lymph % (Auto) (20-44) % Sandoval % (Auto) (0.0-11.0) % Eos % (Auto) (0.0-7.0) % Baso % (Auto) (0.0-3.0) % Neut # (Auto) (1.7-7.0) K/uL Lymph # (Auto) (0.90-2.90) K/uL Sandoval # (Auto) (0.00-0.90) K/UL Eos # (Auto) (0.00-0.50) K/uL Baso # (Auto) (0.00-0.30) K/uL Abs Immat Gran (auto) (0.00-0.30) K/uL Imm/Tot Granulo (auto) % Sodium Potassium Chloride 98 Carbon Dioxide Cancelled 27 Anion Gap Cancelled 11 BUN Cancelled Creatinine Estimated Creat Clear Estimated GFR Glucose Lactate (0.5-1.9) mmol/L Calcium Total Bilirubin (0.1-1.5) mg/dL Direct Bilirubin (0.0-0.5) mg/dL AST (12-35) U/L ALT (4-50) U/L Alkaline Phosphatase (40-150) U/L Total Creatine Kinase (54-186) U/L Troponin I (0.01-0.04) ng/mL Total Protein (6.0-8.3) g/dL Albumin (3.3-5.0) g/dL Lipase (23-300) U/L Urine Color (Yellow) Urine Appearance (Clear) Urine pH (5.0-8.5) Ur Specific Bunker (1.000-1.030) Urine Protein (Negative) Urine Glucose (UA) (Negative) Urine Ketones (Negative) Urine Blood (Negative) Urine Nitrite (Negative) Urine Bilirubin (Negative) Urine Urobilinogen (0.2-1.0) Ur Leukocyte Esterase (Negative) Urine RBC (0-2) Urine WBC (0-5) Ur Squamous Epith Cells (None-Few) Urine Bacteria (None) SARS-CoV-2 (PCR) (Negative) Influenza Type A (PCR) (Negative) Influenza Type B (PCR) (Negative) 01/23/25 01/23/25 01/23/25 Range/Units 19:45 19:45 19:45 WBC (4.50-11.00) K/uL RBC (4.30-5.90) m/uL Hgb (13.5-17.5) gm/dL Hct (37.0-53.0) % MCV (80-100) fL MCH (26-34) pg MCHC (32-36) gm/dL RDW Coeff of Chelsea (11.5-15.5) % Plt Count (140-440) K/uL Neut % (Auto) (42.0-72.0) % Lymph % (Auto) (20-44) % Sandoval % (Auto) (0.0-11.0) % Eos % (Auto) (0.0-7.0) % Baso % (Auto) (0.0-3.0) % Neut # (Auto) (1.7-7.0) K/uL Lymph # (Auto) (0.90-2.90) K/uL Sandoval # (Auto) (0.00-0.90) K/UL Eos # (Auto) (0.00-0.50) K/uL Baso # (Auto) (0.00-0.30) K/uL Abs Immat Gran (auto) (0.00-0.30) K/uL Imm/Tot Granulo (auto) % Sodium Potassium Chloride Carbon Dioxide Anion Gap BUN 9 Creatinine Cancelled 0.7 Estimated Creat Clear Cancelled 62.54 Estimated GFR Cancelled Glucose Lactate (0.5-1.9) mmol/L Calcium Total Bilirubin (0.1-1.5) mg/dL Direct Bilirubin (0.0-0.5) mg/dL AST (12-35) U/L ALT (4-50) U/L Alkaline Phosphatase (40-150) U/L Total Creatine Kinase (54-186) U/L Troponin I (0.01-0.04) ng/mL Total Protein (6.0-8.3) g/dL Albumin (3.3-5.0) g/dL Lipase (23-300) U/L Urine Color (Yellow) Urine Appearance (Clear) Urine pH (5.0-8.5) Ur Specific Bunker (1.000-1.030) Urine Protein (Negative) Urine Glucose (UA) (Negative) Urine Ketones (Negative) Urine Blood (Negative) Urine Nitrite (Negative) Urine Bilirubin (Negative) Urine Urobilinogen (0.2-1.0) Ur Leukocyte Esterase (Negative) Urine RBC (0-2) Urine WBC (0-5) Ur Squamous Epith Cells (None-Few) Urine Bacteria (None) SARS-CoV-2 (PCR) (Negative) Influenza Type A (PCR) (Negative) Influenza Type B (PCR) (Negative) 01/23/25 01/23/25 01/23/25 Range/Units 19:45 19:45 19:45 WBC (4.50-11.00) K/uL RBC (4.30-5.90) m/uL Hgb (13.5-17.5) gm/dL Hct (37.0-53.0) % MCV (80-100) fL MCH (26-34) pg MCHC (32-36) gm/dL RDW Coeff of Chelsea (11.5-15.5) % Plt Count (140-440) K/uL Neut % (Auto) (42.0-72.0) % Lymph % (Auto) (20-44) % Sandoval % (Auto) (0.0-11.0) % Eos % (Auto) (0.0-7.0) % Baso % (Auto) (0.0-3.0) % Neut # (Auto) (1.7-7.0) K/uL Lymph # (Auto) (0.90-2.90) K/uL Sandoval # (Auto) (0.00-0.90) K/UL Eos # (Auto) (0.00-0.50) K/uL Baso # (Auto) (0.00-0.30) K/uL Abs Immat Gran (auto) (0.00-0.30) K/uL Imm/Tot Granulo (auto) % Sodium Potassium Chloride Carbon Dioxide Anion Gap BUN Creatinine Estimated Creat Clear Estimated GFR 98 Glucose Cancelled 119 H Lactate 1.2 (0.5-1.9) mmol/L Calcium Cancelled 8.6 Total Bilirubin 0.9 (0.1-1.5) mg/dL Direct Bilirubin 0.4 (0.0-0.5) mg/dL AST 37 H (12-35) U/L ALT 32 (4-50) U/L Alkaline Phosphatase 156 H (40-150) U/L Total Creatine Kinase 75 (54-186) U/L Troponin I < 0.01 L (0.01-0.04) ng/mL Total Protein 6.5 (6.0-8.3) g/dL Albumin 3.9 (3.3-5.0) g/dL Lipase 12 L (23-300) U/L Urine Color (Yellow) Urine Appearance (Clear) Urine pH (5.0-8.5) Ur Specific Bunker (1.000-1.030) Urine Protein (Negative) Urine Glucose (UA) (Negative) Urine Ketones (Negative) Urine Blood (Negative) Urine Nitrite (Negative) Urine Bilirubin (Negative) Urine Urobilinogen (0.2-1.0) Ur Leukocyte Esterase (Negative) Urine RBC (0-2) Urine WBC (0-5) Ur Squamous Epith Cells (None-Few) Urine Bacteria (None) SARS-CoV-2 (PCR) (Negative) Influenza Type A (PCR) (Negative) Influenza Type B (PCR) (Negative) 01/23/25 01/23/25 Range/Units 19:47 20:05 WBC (4.50-11.00) K/uL RBC (4.30-5.90) m/uL Hgb (13.5-17.5) gm/dL Hct (37.0-53.0) % MCV (80-100) fL MCH (26-34) pg MCHC (32-36) gm/dL RDW Coeff of Chelsea (11.5-15.5) % Plt Count (140-440) K/uL Neut % (Auto) (42.0-72.0) % Lymph % (Auto) (20-44) % Sandoval % (Auto) (0.0-11.0) % Eos % (Auto) (0.0-7.0) % Baso % (Auto) (0.0-3.0) % Neut # (Auto) (1.7-7.0) K/uL Lymph # (Auto) (0.90-2.90) K/uL Sandoval # (Auto) (0.00-0.90) K/UL Eos # (Auto) (0.00-0.50) K/uL Baso # (Auto) (0.00-0.30) K/uL Abs Immat Gran (auto) (0.00-0.30) K/uL Imm/Tot Granulo (auto) % Sodium Potassium Chloride Carbon Dioxide Anion Gap BUN Creatinine Estimated Creat Clear Estimated GFR Glucose Lactate (0.5-1.9) mmol/L Calcium Total Bilirubin (0.1-1.5) mg/dL Direct Bilirubin (0.0-0.5) mg/dL AST (12-35) U/L ALT (4-50) U/L Alkaline Phosphatase (40-150) U/L Total Creatine Kinase (54-186) U/L Troponin I (0.01-0.04) ng/mL Total Protein (6.0-8.3) g/dL Albumin (3.3-5.0) g/dL Lipase (23-300) U/L Urine Color Mello A (Yellow) Urine Appearance Clear (Clear) Urine pH 6.0 (5.0-8.5) Ur Specific Bunker 1.020 (1.000-1.030) Urine Protein Trace A (Negative) Urine Glucose (UA) Negative (Negative) Urine Ketones 4+ A (Negative) Urine Blood Negative (Negative) Urine Nitrite Negative (Negative) Urine Bilirubin 1+ A (Negative) Urine Urobilinogen >=8.0 A (0.2-1.0) Ur Leukocyte Esterase Negative (Negative) Urine RBC 0-2 (0-2) Urine WBC 0-2 (0-5) Ur Squamous Epith Cells None (None-Few) Urine Bacteria None (None) SARS-CoV-2 (PCR) Negative SARS-CoV-2 (Negative) Influenza Type A (PCR) Negative PCR FLU A (Negative) Influenza Type B (PCR) Negative PCR FLU B (Negative) Imaging Data Chest x-ray: Attestation: I have reviewed the pertinent imaging results. Radiologist's impression: COMPARISON: 01/20/2025 chest radiograph TECHNIQUE: Two radiographic view(s) of the chest. FINDINGS: No substantial pleural effusion. Similar slight elevation of the left hemidiaphragm. No pneumothorax. No definite focal pulmonary consolidation. Normal heart size. There is calcified aortic atherosclerosis. There are osseous degenerative changes. There is mild dextrocurvature of the thoracic spine. There are partially imaged bilateral proximal humerus suture anchors. There is mild anterior vertebral body wedging most conspicuous in the midthoracic spine. There are surgical clips projecting over the upper abdomen. IMPRESSION: No acute cardiopulmonary findings. ECG Data Attestation: I personally reviewed and interpreted this ECG as follows: Discharge Plan Discharge Clinical Impression: Dehydration, mild RSV infection Qualifiers: RSV infection type: unspecified Qualified Code(s): B33.8 - Other specified viral diseases Patient Disposition: Home, Self-Care Condition: Stable Additional Instructions: There is no evidence of pneumonia or other significant abnormality found on your workup today aside from your RSV infection. Recommend frequent sips of fluids throughout the day. Recommend small bites of food frequently throughout the day. Recommend you follow-up with your primary care provider mid to late next week. You should have a repeat urine test done especially if you are still having episodes of brown urine. Return to the emergency department if you are unable to keep down any fluids, or if you are having difficulty breathing. Prescriptions: No Action tizanidine 4 mg tablet 3XD pantoprazole 40 mg tablet,delayed release (DR/EC) PO DAILY oxycodone 5 mg tablet Follow Up/Referrals: Jovany Salguero MD [Primary Care Provider] - Stand Alone Forms: [facility] Info Instructions
[2025-01-23 19:55] LABS: Basophils Absolute Auto 0.02 K/uL (0.00-0.30); Basophils Percent Auto 0.2 % (0.0-3.0); Eosinophils Absolute Auto 0.01 K/uL (0.00-0.50); Eosinophils Percent Auto 0.1 % (0.0-7.0); Hematocrit 40.9 % (37.0-53.0); Hemoglobin* 13.6 gm/dL (13.5-17.5); Immature Granulocytes Abs Auto 0.01 K/uL (0.00-0.30); Immature Granulocytes Pct Auto 0.1 %; Lymphocytes Absolute Auto 3.23 K/uL (0.90-2.90); Lymphocytes Percent Auto 33.2 % (20-44); Mean Corpuscular HGB Conc 33 gm/dL (32-36); Mean Corpuscular Hemoglobin 29 pg (26-34); Mean Corpuscular Volume 87 fL (80-100); Monocytes Percent Auto 7.1 % (0.0-11.0); Neutrophils Absolute Auto 5.76 K/uL (1.7-7.0); Neutrophils Percent Auto 59.3 % (42.0-72.0); Platelet Count* 110 K/uL (140-440); RDW Coefficient of Variation % 12.2 % (11.5-15.5); White Blood Count* 9.72 K/uL (4.50-11.00)
[2025-01-23 19:59] LABS: Slide Review Reflex No
[2025-01-23] MEDS: 0.9 % SODIUM CHLORIDE 1000 ml 1,000 ML IV (20:04)
[2025-01-23] MEDS: ONDANSETRON 2 MG/ML inj 4 MG IVP (20:04)
[2025-01-23] MEDS: ACETAMINOPHEN 325 MG TABLET 650 MG PO (20:04)
[2025-01-23 20:11] LABS: Albumin* 3.9 g/dL (3.3-5.0); Chloride* 98 mmol/L (96-114); Potassium* 3.8 mmol/L (3.6-5.1); Sodium* 136 mmol/L (135-149)
[2025-01-23 20:14] LABS: Alkaline Phosphatase* 156 U/L (40-150); Anion Gap 11 mEq/L (7-15); Aspartate Amino Transferase* 37 U/L (12-35); Bilirubin Direct* 0.4 mg/dL (0.0-0.5); Bilirubin Total* 0.9 mg/dL (0.1-1.5); Blood Urea Nitrogen* 9 mg/dL (7-30); Calcium* 8.6 mg/dL (8.4-10.6); Carbon Dioxide* 27 mmol/L (20-32); Creatine Kinase* 75 U/L (54-186); Creatinine* 0.7 mg/dL (0.5-1.5); Est. Creatinine Clearance* 62.54; Estimated Glomerular Filt Rate 98 ml/min; Glucose* 119 mg/dL (60-115); Total Protein* 6.5 g/dL (6.0-8.3)
[2025-01-23 20:15] LABS: Alanine Aminotransferase* 32 U/L (4-50); Lipase* 12 U/L (23-300)
[2025-01-23 20:18] LABS: Appearance Urine Clear (Clear); Bilirubin Urine 1+ (Negative); Blood Urine Negative (Negative); Color Urine Amber (Yellow); Glucose Urine Negative (Negative); Ketones Urine 4+ (Negative); Leukocyte Esterase Urine Negative (Negative); Nitrite Urine Negative (Negative); Protein Urine Trace (Negative); Urobilinogen Urine >=8.0 (0.2-1.0)
[2025-01-23 20:30] LABS: RBC Urine 0-2 (0-2); WBC Urine 0-2 (0-5)
[2025-01-23 20:30] LABS: Troponin I* < 0.01 ng/mL (0.01-0.04)
[2025-01-23 20:34] LABS: PCR FLU A Negative PCR FLU A (Negative); PCR FLU B Negative PCR FLU B (Negative); SARS PCR* Negative SARS-CoV-2 (Negative)
[2025-01-23 21:09] VITALS: PULSE 85; RESP 14; TEMP 37.3; O2SAT 94
[2025-01-23 21:13] VITALS: BP 151/74
== END 2025-01-23 21:30 | disposition home or self-care (01) ==
PROVIDERS: Emergency Provider Family Medicine; PCP Internal Medicine
DX: E86.0 Dehydration (principal); J06.9 Acute upper respiratory infection, unspecified; B97.4 Respiratory syncytial virus as the cause of diseases classified elsewhere
CPT/HCPCS: 36415; 71046; 80048; 80076; 81001; 82550; 83605; 83690; 84484; 85025; 87086; 87631; 93005; 94761; 96374; 99284; 99285; A9270; J2405; J7030

== ENCOUNTER 2025-02-16 12:37 | Outpatient (CLI) | payer MEDICARE, SELFPAY ==
--- NOTE | 2025-02-16 13:00 | CRLHL7_ITS ---
For Patients: As a result of the Century Cures Act, medical imaging exams and procedure reports are released immediately into your electronic medical record. You may view this report before your referring provider. If you have questions, please contact your health care provider. 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 COMPARISON: None. TECHNIQUE: Noncontrast CT of the scientologist bones. FINDINGS: Right: Near complete opacification of the right mastoid air cells and mastoid antrum. Soft tissue density and fluid within the middle ear cavity mesotympanum and hypotympanum. No erosive changes of the ossicles. Scutum remain sharp. Tegmen tympani is intact. Normal thickness of the tympanic membrane. Normal external auditory canal. Normal mineralization of the otic capsule. Normal cochlea and vestibule. Normal internal artery canal. Left: Near complete opacification of the left mastoid air cells and mastoid antrum. Fluid and soft tissue density about the middle ear cavity. Scutum remain sharp. No erosive changes of the ossicles. Retraction of the tympanic membrane. Tegmen tympani is grossly intact. Normal external auditory canal. Normal mineralization of the otic capsule. Normal cochlea vestibule. There is thinning of the osseous margin of the superior since that canal but no kalyani dehiscence. Normal internal auditory canal. Other: Visualized paranasal sinuses are clear. IMPRESSION: 1. Near complete opacification of the bilateral mastoid air cells. Fluid soft tissue density within the bilateral middle ear cavities, left greater than right. Overall, findings likely represent a combination of both otitis media and mastoiditis. 2. No erosive changes of the ossicles or scutum. 3. Normal inner ear structures bilaterally. Please note that all CT scans at this facility use dose modulation, iterative reconstruction, and/or weight-based dosing when appropriate to reduce radiation dose to as low as reasonably achievable. Dictated by Phil Agarwal MD @ 02/16/2025 3:16:41 PM (Electronically Signed)
== END 2025-02-16 12:38 | disposition home or self-care (01) ==
LOC: CT 12:40
PROVIDERS: PCP Internal Medicine; Visit Provider Otolaryngology Otolaryngology/Facial Plastic Surgery
DX: H90.A32 Mixed conductive and sensorineural hearing loss, unilateral, left ear with restricted hearing on the contralateral side (principal)
CPT/HCPCS: 70480